=== PATIENT | female | born 1940 | race Caucasian/White ===

== ENCOUNTER 2022-11-12 11:48 | Outpatient (CLI) | payer OTHER, SELFPAY ==
[2022-11-12 12:57] LABS: Hemoglobin A1C 11.6 % (<5.7)
== END 2022-11-12 11:49 | disposition home or self-care (01) ==
PROVIDERS: PCP Family Medicine; Visit Provider Nurse Practitioner Family
DX: E11.9 Type 2 diabetes mellitus without complications (principal)
CPT/HCPCS: 36415; 83036

== ENCOUNTER 2023-01-31 12:04 | Outpatient (CLI) | payer OTHER, SELFPAY ==
[2023-01-31 12:28] LABS: Basophils Percent Auto 0.5 % (0.2-1.2); Eosinophils Absolute Auto 0.1 K/mm3 (0-0.3); Eosinophils Percent Auto 0.6 % (0-4.4); Hematocrit 44.3 % (37.0-47.0); Hemoglobin 14.2 g/dL (12.0-15.0); Immature Granulocyte Absolute 0.04 K/mm3 (0.00-0.031); Immature Granulocyte Percent A 0.5 % (0-0.5); Lymphocytes Absolute Auto 2.98 K/mm3 (0.9-3.2); Lymphocytes Percent Auto 35.9 % (18.3-44.2); Mean Corpuscular HGB Conc 32.1 g/dl (32-36); Mean Corpuscular Volume 90.6 fl (80-100); Mean Platelet Volume 10.5 fl (7.4-10.4); Monocytes Absolute Auto 0.8 K/mm3 (0.1-0.6); Monocytes Percent Auto 9.4 % (2.6-8.5); Neutrophils Absolute Auto 4.4 K/mm3 (1.3-6.7); Neutrophils Percent Auto 53.1 % (45.5-73.1); Platelet Count Result 250 k/mm3 (150-375); Red Blood Count 4.89 M/mm3 (4.2-5.4); Red Cell Distribution Width 13.1 % (11.5-14.5); White Blood Count 8.3 K/mm3 (4.5-10.0)
[2023-01-31 12:44] LABS: Alanine Aminotransferase 14 U/L (6-35); Albumin Level 4.5 g/dL (3.5-5.1); Alkaline Phosphatase 89 U/L (38-126); Anion Gap 9 mmol/L (8-16); Aspartate Amino Transferase 21 U/L (14-36); Bilirubin,Total 0.6 mg/dL (0.2-1.3); Blood Urea Nitrogen 17 mg/dL (7-17); Calcium 10.5 mg/dL (8.4-10.2); Carbon Dioxide 30 mmol/L (22-30); Chloride 104 mmol/L (98-107); Estimated Glomerular Filt Rate > 60; Glucose 172 mg/dL (65-110); Potassium 3.9 mmol/L (3.4-5.0); Sodium 143 mmol/L (137-145)
== END 2023-01-31 12:05 | disposition home or self-care (01) ==
LOC: ANHLAB 12:06
PROVIDERS: PCP Family Medicine; Visit Provider Nurse Practitioner Family
DX: E11.9 Type 2 diabetes mellitus without complications (principal); I10 Essential (primary) hypertension; R42 Dizziness and giddiness
CPT/HCPCS: 36415; 80053; 85025

== ENCOUNTER 2023-03-05 14:25 | Outpatient (CLI) | payer OTHER, SELFPAY ==
--- NOTE | ~2023-03-05 | MR_ITS ---
EXAMINATION: MR brain/brain stem wo con DATE: 03/05/2023 16:25 INDICATION: Syncope. Repeated falls. TECHNIQUE: Magnetic resonance imaging (MRI) of the brain and brainstem was performed without intraven ous contrast. COMPARISON: None. FINDINGS: There are scattered areas of nonspecific increased T2-weighted signal intensity in the cere bral white matter and brenna. There is an infarct involving the left basal ganglia and posterior limb l eft internal capsule. There is an infarct involving the right basal ganglia. There is no intracranial hemorrhage or abnormal mass lesion. The lateral ventricles are dilated out of proportion to the size of the sulci. There are likely changes of ocular lens replacement surgeries. There is mild mucosal t hickening in the paranasal sinuses. The mastoid air cells are normal. IMPRESSION: 1. Infarcts involving the right basal ganglia, left basal ganglia, and posterior limb left internal c apsule, likely subacute or chronic. 2. Mild nonspecific cerebral white matter disease and pontine disease, which likely represents chroni c small vessel ischemic disease. 3. Dilated lateral ventricles out of proportion to the size of the sulci. Correlate clinically for no rmal pressure hydrocephalus. Reviewed, dictated and finalized at location A. IMPRESSION: 1. Infarcts involving the right basal ganglia, left basal ganglia, and posterio r limb left internal capsule, likely subacute or chronic. 2. Mild nonspecific cerebral white matter disease and pontine disease, which little calvert represents chronic small vessel ischemic disease. 3. Dilated lateral ventricles out of proportion to the size of the sulci. Corre late clinically for normal pressure hydrocephalus.
== END 2023-03-05 14:26 | disposition home or self-care (01) ==
PROVIDERS: PCP Family Medicine; Visit Provider Nurse Practitioner Family
DX: R29.6 Repeated falls (principal); R40.20 Unspecified coma; R29.898 Other symptoms and signs involving the musculoskeletal system; R90.82 White matter disease, unspecified
CPT/HCPCS: 70551

== ENCOUNTER 2023-10-16 12:45 | Outpatient (CLI) | payer OTHER, SELFPAY ==
[2023-10-16 13:14] LABS: Hematocrit 45.7 % (37.0-47.0); Hemoglobin 14.6 g/dL (12.0-15.0); Mean Corpuscular HGB Conc 31.9 g/dl (32-36); Mean Corpuscular Volume 90.9 fl (80-100); Mean Platelet Volume 11.1 fl (7.4-10.4); Platelet Count Result 280 k/mm3 (150-375); Red Blood Count 5.03 M/mm3 (4.2-5.4); Red Cell Distribution Width 12.8 % (11.5-14.5); White Blood Count 10.1 K/mm3 (4.5-10.0)
== END 2023-10-16 12:46 | disposition home or self-care (01) ==
PROVIDERS: PCP Family Medicine; Visit Provider Nurse Practitioner Family
DX: R19.5 Other fecal abnormalities (principal)
CPT/HCPCS: 36415; 85027

== ENCOUNTER 2023-11-14 11:48 | Outpatient (CLI) | payer OTHER, SELFPAY ==
--- NOTE | ~2023-11-14 | XR_ITS ---
EXAMINATION: XR abdomen/kub 1V DATE: 11/14/2023 12:10 INDICATION: Unspecified abdominal pain. TECHNIQUE: A supine view of the abdomen on 2 radiographs was obtained. COMPARISON: None. FINDINGS: There are no dilated loops of bowel. There is a large volume of stool in the colon. Calcifi cations in the pelvis may be phleboliths. Surgical clips in the right upper quadrant are likely from cholecystectomy. IMPRESSION: 1. Large volume of stool in the colon. Reviewed, dictated and finalized at location E.
== END 2023-11-14 11:49 | disposition home or self-care (01) ==
PROVIDERS: PCP Family Medicine; Visit Provider Physician Assistant Medical
DX: R10.9 Unspecified abdominal pain (principal); Z87.442 Personal history of urinary calculi
CPT/HCPCS: 74018

== ENCOUNTER 2024-08-03 13:13 | Outpatient (CLI) | payer OTHER, SELFPAY ==
--- NOTE | ~2024-08-03 | XR_ITS ---
XR shoulder RT min 2V Ordering provider: Tereza Aragon, PAC History: . M25.511 - Pain in right shoulder X 4 WEEKS . Comparison: None. FINDINGS: BONES: No acute fracture or dislocation. Ossification of the supraspinatous tendon is seen near to the insertion. JOINT SPACES: The acromioclavicular joint shows osteoarthritic changes. The glenohumeral joint is nor mal. SOFT TISSUES: Normal. IMPRESSION: No acute osseous abnormality right shoulder. Osteoarthritic changes of the acromioclavicular joint. Calcific tendinitis of the supraspinatus tendon. Reviewed, dictated and finalized at location A.
--- OUTSIDE RECORDS SUMMARY | 2024-08-03 14:42 | XMS_ITS ---
Author Organization 1 OF Loren payan [facility] Address [address] [address] Care Team Providers Care Crane Engineer Name Role Phone Nadia HOLM, Jeovany Primary Care Provider Gavino Noble Unavailable REASON FOR VISIT DFC (Diabetic foot care) Encounters Encounter Location Date Provider Diagnosis 1 OF Loren Hubbard [facility] [address] [address] 07/12/2024 Gavino Hubbard Onychogryphosis L60.2 ; Diabetic [...] fasciitis of right foot (ICD-10 - M72.2) 07/12/2024 Other Plan Of Treatment Treatment Notes Assessment Notes Diabetic peripheral neuropathy Consideri ng the associated comorbidities and physical exam findings today, this patient is at substantial risk of developing serious foot complications in the absence of regular and professional palliative foot care. Next Appt Details Follow Up: 10-12 weeks or co ntact office PRN with any concerns, Reason: Provider Name:Gavnio Michel Stevie, 10/08/2024 11:10:00 AM, [address], [address], [place], [address], Procedure Notes * Category Sub-Category Detail Notes PALLIATIVE FOOT CARE: Nail debride (47250): Debr idement of at least six mycotic and/or hypertrophic nails performed:, utilizing manual and electric debridement the affected nails were reduced the nails in length and thickness with curettage of debris from nail margins performed as needed. Nail thickness reduced by:, 10% Progress Notes * Ban GARRISONDOB: 0 (84 yo F)Acc No.[id number]:07/12/2024 Progress Note Patient: Ban YEE Provider: Loren Hubbard DPM :1940 A ge:84 Y S ex:Female Date:07/12/2024 Address:[address] [place] [address], [address] [facility] Pcp:Jeovany Zuniga MD Subjective: * Chief Complaints: * 1 . DFC (Diabetic foot care). * HPI: M A assisting with visit:: Chart Prep L kevyn. HPI/Rooming: . ..... P [facility] reason for visit:: 84 y/o diabetic female RTO for diabetic foot care. Patient reports no acute issues with nails or calluses today. * Medical History: Objective: * Vitals: * Examination: G eneral Examination: Constitutional / [...] suspicious lesions, bilateral. Nails: N ail plates of:TA-K6cpuxsm relatively thickened, dystrophic, discolored, incurvated.. Hyperkeratotic lesions [...] of tarsal tunnel.. Assessment: * Assessment: 1. O nychogryphosis - L60.2 2 . D iabetic peripheral neuropathy - E11.42 (Primary) 3 . R ight foot pain - M79.671 4 . P lantar fasciitis of right foot - M72.2 Plan: * Treatment: * Procedures: P ALLIATIVE FOOT CARE:: Nail debride (30365): D ebridement of at least six mycotic and/or hypertrophic nails performed:, utilizing manual and electric debridement the affected nails were reduced the nails in length and thickness with curettage of debris from nail margins performed as needed. Nail thickness reduced by:, 10%. * Follow Up: 1 0-12 weeks or contact office PRN with any concerns * Images: * Electronic signature of Dana Hubbard DPM on 08/03/2024 at 02:42 PM CDT Sign off status: Pending * Provider: Loren Hubbard DPM Date: 0 07/12/2024 Generated for Carloz torres/Mignon/Jett on: 0 08/03/2024 02:42 PM CDT History and Physical Notes * HPI (History [...] , XXXXXX Ambulatory assistive device: wheeled wal yumiko Constitutional / Appearance: Appropriate personal hygiene , [...]
--- OUTSIDE RECORDS SUMMARY | 2024-08-03 14:43 | XMS_ITS | Encounter Summary ---
Author Organization [facility] Address [address] [place] [address] Care Team Providers Care Retail Grocer Name Role Phone Mal Jin Primary Care Provider Encounter Details Date Type Department Care Team (Late st Contact Info) Description 07/03/2023 Lab Requisition [facility] - DermPath Lab [address] [facility] [place] [address] Denae Chavez MD [address] [place] [address] [phone] Neoplasm of uncertain behavior of skin Social History Tobacco Use Types Packs/Day Years Used Date Smoking Tobacco: Never Smokeless Tobacco: Never Alcohol Use Standard Drinks/Week Comments No 0 (1 standard drink = 0.6 oz pur e alcohol) Sex and Gender Information Value Date Recorded Sex Assigned at Not on file Gender Identity Not on file Sexual Orientation Not on file documented as of this encounter Plan of Treatment Not on file documented as of this encounter Procedures Procedure Name Priority Date/Time Associated Diagnosis Comments DERMATOPATHOLOGY Routine 07/03/2023 3:33 AM INSTRUMENT LENS INSPECTOR Neoplasm of uncertain behavior of skin documented in this encounter Results * DERMATOPATHOLOGY (07/03/2023 3:33 AM INSTRUMENT LENS INSPECTOR) Case Report Dermatopathology Report Case: [id number] Authorizing Provider: Denae Chavez MD Collected: 07/03/2023 03:33 AM Ordering Location: [facility] DermPath Lab Received: 07/04/2023 04:30 PM Pathologist: Lillie Antoine MD Specimens: A) - Skin, right muslim superior B) - Skin, right muslim inferior C) - Skin, right superior chest D) - Skin, left forearm 4 12:12 PM [facility] DERMATOPATHOLOGY LABORATORY Final Diagnosis Specimen A. SKIN, right muslim superior: HYPERPLASTIC (HYPERTROPHIC) ACTINIC KERATOSIS (L57.0) Specimen B. SKIN, right muslim inferior: SQUAMOUS CELL CARCINOMA IN SITU (ALVAREZ'S DISEASE) (D04.39) Specimen C. 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 SKIN, left forearm: SQUAMOUS CELL CARCINOMA IN SITU (ALVAREZ'S DISEASE) (D04.62) 4 12:12 PM [facility] DERMATOPATHOLOGY LABORATORY Clinical History A-C: Actinic Keratosis D: Basal Cell Carcinoma 4 12:12 PM [facility] DERMATOPATHOLOGY LABORATORY Gross Description Specimen A: Received is one formalin filled container labeled with the patient's name and designated right muslim superior. The specimen consists of a shave biopsy measuring 8x7x1 mm. Jar 0. Specimen B: Received is one formalin filled container labeled with the patient's name and designated right muslim inferior. The specimen consists of a shave biopsy measuring 8x7x1 mm. Jar 0. Specimen C: Received is one formalin filled container labeled with the patient's name and designated right superior chest. The specimen consists of a shave biopsy measuring 9x7x1 mm. Jar 0. Specimen D: Received is one formalin filled container labeled with the patient's name and designated left forearm. The specimen consists of a shave biopsy measuring 16x9x1 mm. Jar 0. 4 12:12 PM [facility] DERMATOPATHOLOGY LABORATORY Microscopic Description Specimen A. SKIN, right muslim superior: There is hyperkeratosis alternating with parakeratosis. There is epidermal hyperplasia with disorderly maturation of keratinocytes with nuclear pleomorphism confined to the lower half of the epidermis. Specimen B. SKIN, right muslim inferior: The epidermis shows parakeratosis, full thickness disorderly maturation of keratinocytes, mitoses at different levels, and dyskeratotic cells. Specimen C. SKIN, right superior chest: The epidermis shows parakeratosis, full thickness disorderly maturation of keratinocytes, mitoses at different levels, and dyskeratotic cells. Specimen D. SKIN, left forearm: The epidermis shows parakeratosis, full thickness disorderly maturation of keratinocytes, mitoses at different levels, and dyskeratotic cells. 4 12:12 PM [facility] DERMATOPATHOLOGY LABORATORY Disclaimer An external and internal positive and negative controls are appropriate for the histochemical, immunohistochemical and immunofluorescence stain(s) in this case (if any), except where stated explicitly. The performance characteristics of the stain(s) cited in this report were developed and its performance characteristic determined by the Dermatopathology Laboratory at [facility], directed by Dr. Tatiana Bowers. These tests need not be, and therefore are not, approved by the [place] Food and Drug Administration. The tests are used for clinical purposes. Billing Codes Specimen Charges Stain Charges 60248 84273 69473 52796 1 1 1 1 4 12:12 PM INSTRUMENT LENS INSPECTOR DERMATOPATHOLOGY LABORATORY Embedded Images 4 12:12 PM INSTRUMENT LENS INSPECTOR DERMATOPATHOLOGY LABORATORY Pathology/Cytology TISSUE SPECIMEN FROM SKIN / Unknown 07/03/2023 3:33 AM INSTRUMENT LENS INSPECTOR 07/04/2023 4:30 PM INSTRUMENT LENS INSPECTOR Miscellaneous samples (specimen) TISSUE SPECIMEN FROM SKIN / Unknown 07/03/2023 3:33 AM INSTRUMENT LENS INSPECTOR 07/04/2023 4:30 PM INSTRUMENT LENS INSPECTOR Miscellaneous samples (specimen) TISSUE SPECIMEN FROM SKIN / Unknown 07/03/2023 3:33 AM INSTRUMENT LENS INSPECTOR 07/04/2023 4:30 PM INSTRUMENT LENS INSPECTOR Miscellaneous samples (specimen) TISSUE SPECIMEN FROM SKIN / Unknown 07/03/2023 3:33 AM INSTRUMENT LENS INSPECTOR 07/04/2023 4:30 PM INSTRUMENT LENS INSPECTOR Denae Chavez MD LAB - PATHOLOGY/CYTO LOGY ORDERABLES DERMATOPATHOLOGY LABORATORY [facility] - Department of Dermatology [address], [address] Floor [place] [phone] documented in this encounter Visit Diagnoses Diagnosis Neoplasm of uncertain behavior of skin documented in this encounter Care Teams Retail Grocer Relationship Specialty Start Date End Date Mla Jin DO PCP - General 06/23/19 documented as of this encounter
--- OUTSIDE RECORDS SUMMARY | 2024-08-03 14:43 | XMS_ITS ---
Author Organization 1 OF Loren payan DPM [facility] Address [address] [address] Care Team Providers Care Automatic Door Mechanic Name Role Phone Nadia HOLM, Jeovany Primary Care Provider Gavino Nolbe Unavailable Allergies Allergen (clinical drug ingredient) Drug/Non Drug Allergy documented on EMR Reaction Allergy Type Onset Date Status morphine Morphine Sulfate Unknown Drug Allergy Active REASON FOR VISIT DFC (Diabetic foot care) Medications Medication SIG (Take, Route, Frequency, Duration) Notes Start Date End Date Status Furosemide Active Metoprolol Succinate Active amLODIPine Besylate Active Gabapentin Active glipiZIDE Active Potassium Active Levothyroxine Sodium 88 MCG 1 tablet Ora lly Once a day Active Lisinopril 40 MG 1 tablet Orally Once a day Active Baby Aspirin Active Cephalexin Active Problems Problem Type SNOMED Code ICD Code Onset Dates Problem Status W/U Status Risk Notes Problem [id number] Plantar fasciitis of right foot (M72.2) Active confirmed Vital Signs Height 66 in 04/29/2024 Weight 138 lbs 04/29/2024 BMI 22.27 kg/m2 04/29/2024 Encounters Encounter Location Date Provider Diagnosis 1 OF Loren Hubbard DPM [facility] [address] [employer] [phone] 04/29/2024 Gavino Hubbard Onychogryphosis L60.2 ; Diabetic peripheral neuropathy E11.42 ; Right foot pain M79.671 and Plantar fasciitis of right foot M72.2 Assessments Encounter Date Diagnosis (ICD Code) Assessment Notes Treatment Notes Treatment Clinical Notes Section Notes 04/29/2024 Onychogryphosis (ICD-10 - L60.2) 04/29/2024 Diabetic peripheral neuropathy (ICD-10 - E11.42) Considering the associated comorbidities and physical exam findings today, this patient is at substantial risk of developing serious foot complications in the absence of regular and professional palliative foot care. 04/29/2024 Right foot pain (ICD-10 - M79.671) 04/29/2024 Plantar fasciitis of right foot (ICD-10 - M72.2) Patient visit today included a review of medical history, review of systems, physical exam and discussion of exam findings, test results, and discussed the nature and etiology of plantar fasciitis as well as treatment options. I discussed the importance of wearing good supportive shoes and avoiding ambulation in slippers, flip flops or walking barefoot and I encouraged the patient to wear a good quality athletic sneaker whenever possible. Recommended local [employer] shoe store or a reputable running specialty store in the area for new shoes YONATAN. F/u prn 04/29/2024 Other Plan Of Treatment Treatment Notes Assessment Notes Diabetic peripheral neuropathy Consideri ng the associated comorbidities and physical exam findings today, this patient is at substantial risk of developing serious foot complications in the absence of regular and professional palliative foot care. Plantar fasciitis of right foot Patient visit today included a review of medical history, review of systems, physical exam and discussion of exam findings, test results, and discussed the nature and etiology of plantar fasciitis as well as treatment options. I discussed the importance of wearing good supportive shoes and avoiding ambulation in slippers, flip flops or walking barefoot and I encouraged the patient to wear a good quality athletic sneaker whenever possible. Recommended local [employer] shoe store or a reputable running specialty store in the area for new shoes YONATAN. F/u prn Next Appt Details Follow Up: 10-12 weeks or co ntact office PRN with any concerns, Reason: Provider Name:Gavino Hubbard, 10/08/2024 11:10:00 AM, [address], [place], [address], Procedure Notes * Category Sub-Category Detail Notes PALLIATIVE FOOT CARE: Nail debride (15772): Debr idement of at least six mycotic and/or hypertrophic nails performed:, utilizing manual and electric debridement the affected nails were reduced the nails in length and thickness with curettage of debris from nail margins performed as needed. Nail thickness reduced by:, 10% Progress Notes * Ban GARRISONDOB: 0 (84 yo F)Acc No.[id number]:04/29/2024 Progress Note Patient: Ban YEE Provider: Loren Hubbard DPM :1940 A ge:83 Y S ex:Female Date:04/29/2024 Address:[facility] [address] [facility] [address] [place], [place] [address] Pcp:Jeovany Zuniga MD Subjective: * Chief Complaints: * D FC (Diabetic foot care) * HPI: Sara Mcgill assisting with visit:: HPI/Rooming: [facility] reason for visit:: 83 y/o diabetic female RTO for diabetic foot care. Patient reports no acute issues with nails or calluses today. The patient reports experiencing an intermittent stinging sensation in her right heel, which she notices while walking. She admits she walks around with only socks on her feet at times. States her diabetic shoes are worn out Pt reports her a month ago. * Medical History: * Surgical History: T hyroid Cancer Hysterectomy Knee Replacement, Left Shoulder, Left * Hospitalization/Major Diagno stic Procedure: * Family History: N o Family History documented.. * Medications: T akingBaby Aspirin Cephalexin Levothyroxine Sodium 88 MCG Tablet 1 tablet Orally Once a day Lisinopril 40 MG Tablet 1 tablet Orally Once a day Potassium Gabapentin glipiZIDE Metoprolol Succinate amLODIPine Besylate Furosemide Medication List reviewed and reconciled with the patientTaking Baby Aspirin Taking Cephalexin Taking Levothyroxine Sodium 88 MCG Tablet 1 tablet Orally Once a day Taking Lisinopril 40 MG Tablet 1 tablet Orally Once a day Taking Potassium Taking Gabapentin Taking glipiZIDE Taking Metoprolol Succinate Taking amLODIPine Besylate Taking Furosemide Medication List reviewed and reconciled with the patient * Allergies: M orphine Sulfateno[Allergies Verified] Objective: * Vitals: W t:138lbs, Wt-k.6 kg, Ht:66in, BMI:22.27Index. * Examination: G eneral Examination: Constitutional / Appearance: A ppropriate personal hygiene , Relatively frail , Relatively deconditioned. Ambulatory assistive device: wheeled walker. Shoes today: M marietommy Quevedo. L ower Extremity VASCULAR: : Pulses: D P pulse nonpalpable b/l, PT pulse nonpalpable b/l. Temperature gradient: decreased from proximal to distal bilateral. Pedal hair: s parse / absent bilateral. ? L ower Extremity DERM: : Skin: r elatively dry, thin, atrophic, no suspicious lesions, bilateral. Nails: N ail plates of:TA-I2sataml relatively thickened, dystrophic, discolored, incurvated.. Hyperkeratotic lesions [...] 1. O nychogryphosis - L60.2 2 . R ight foot pain - M79.671 3 . D iabetic peripheral neuropathy - E11.42 (Primary) 4 . P lantar fasciitis of right foot - M72.2 Plan: * Treatment: 2. P lantar fasciitis of right foot Notes: Patient visit today included a review of medical history, review of systems, physical exam and discussion of exam findings, test results, and discussed the nature and etiology of plantar fasciitis as well as treatment options. I discussed the importance of wearing good supportive shoes and avoiding ambulation in slippers, flip flops or walking barefoot and I encouraged the patient to wear a good quality athletic sneaker whenever possible. Recommended local [employer] shoe store or a reputable running specialty store in the area for new shoes YONATAN. F/u prn * Procedures: P ALLIATIVE FOOT CARE:: Nail debride (26218): D ebridement of at least six mycotic and/or hypertrophic nails performed:, utilizing manual and electric debridement the affected nails were reduced the nails in length and thickness with curettage of debris from nail margins performed as needed. Nail thickness reduced by:, 10%. * Procedure Codes: 1 1721 DEBRIDE NAIL, 6 OR MORE, Modifiers: Q8 * Preventive Medicine: Counseling: C are goal follow-up plan: BMI counseling provided to patient:?Lifestyle education Screenings: F ALL RISK SCREENING Fall Risk Assessment: N o falls in the past year * Follow Up: 1 0-12 weeks or contact office PRN with any concerns * Images: * SIONIST Sign off status: Completed true * Provider: Loren Hubbard DPM Date: 06/30/2023 Generated for Carloz torres/Mignon/Jett on: 0 08/03/2024 02:43 PM CDT History and Physical Notes * HPI (History of Present Illness) Category Sub-Category Detail Notes Category Not es Primary reason for visit: 83 y/o diabetic female RTO for diabetic foot care. Patient reports no acute issues with nails or calluses today. The patient reports experiencing an intermittent stinging sensation in her right heel, which she notices while walking. She admits she walks around with only socks on her feet at times. States her diabetic shoes are worn out Pt reports her a month ago. MONSERRAT assisting with visit: HPI/Rooming: Odalys Examination Category Sub-Category Detail Notes Category Not es General Examination Mental status: Shoes today: Amita Quevedo Ambulatory assistive device: wheeled wal ker Constitutional [...]
--- OUTSIDE RECORDS SUMMARY | 2024-08-03 14:43 | XMS_ITS | Encounter Summary ---
Author Organization [facility] Address [address] [place] [address] Care Team Providers Care Urgent Care Nurse Practitioner Name Role Phone Mal Jin DO Primary Care Provider Encounter Details Date Type Department Care Team (Late st Contact Info) Description 04/08/2023 Lab Requisition [facility] - DermPath Lab [address] [facility] [place] [address] Sebastian Garcia MD [facility] DERMATOLOGY [address] [place] [phone] Neoplasm of uncertain behavior of skin Social [...] Priority Date/Time Associated Diagnosis Comments DERMATOPATHOLOGY Routine 04/08/2023 3:33 AM SENIOR MEDICAL WRITER Neoplasm of uncertain behavior of skin documented in this encounter Results * DERMATOPATHOLOGY (04/08/2023 3:33 AM SENIOR MEDICAL WRITER) Case Report Dermatopathology Report Case: [id number] Authorizing Provider: Sebastian Garcia MD Collected: 04/08/2023 03:33 AM Ordering Location: [facility] DermPath Lab Received: 04/09/2023 04:00 PM Pathologist: Marlene Antoine MD Specimen: Skin, mid back 3 3:46 PM SENIOR MEDICAL WRITER DERMATOPATHOLOGY LABORATORY Final Diagnosis Specimen A. SKIN, mid back: DERMAL SCAR (L90.5) 3 3:46 PM SENIOR MEDICAL WRITER DERMATOPATHOLOGY LABORATORY Clinical History Basal Cell Carcinoma 3 3:46 PM SENIOR MEDICAL WRITER DERMATOPATHOLOGY LABORATORY Gross Description Specimen A: Received is one formalin filled container labeled with the patient's name and designated mid back. The specimen consists of a shave biopsy measuring 5x5x1 mm. Jar 0. 3 3:46 PM SENIOR MEDICAL WRITER DERMATOPATHOLOGY LABORATORY Microscopic Description Specimen A. SKIN, mid back: There are fibroblasts and collagen bundles oriented parallel to the skin surface with elongated blood vessels, some of which are oriented perpendicular to the skin surface. 3 3:46 PM SENIOR MEDICAL WRITER DERMATOPATHOLOGY LABORATORY Disclaimer An external and internal positive and negative controls are appropriate for the histochemical, immunohistochemical and immunofluorescence stain(s) in this case (if any), except where stated explicitly. The performance characteristics of the stain(s) cited in this report were developed and its performance characteristic determined by the Dermatopathology Laboratory at [facility], directed by Dr. Tatiana Bowers. These tests need not be, and therefore are not, approved by the [place] Food and Drug Administration. The tests are used for clinical purposes. Billing Codes Specimen Charges Stain Charges 28849 1 3 3:46 PM SENIOR MEDICAL WRITER DERMATOPATHOLOGY LABORATORY Embedded Images 3 3:46 PM SENIOR MEDICAL WRITER DERMATOPATHOLOGY LABORATORY Pathology/Cytolo gy TISSUE SPECIMEN FROM SKIN / Unknown 04/08/2023 3:33 AM SENIOR MEDICAL WRITER 04/09/2023 4:00 PM SENIOR MEDICAL WRITER Sebastian Garcia MD LAB - PATHOLOGY/CYTO LOGY ORDERABLES DERMATOPATHOLOGY LABORATORY [facility] - Department of Dermatology [facility] [address] [place] [address], [address] [phone] documented in this encounter Visit Diagnoses Diagnosis Neoplasm of uncertain behavior of skin documented in this encounter Care Teams Urgent Care Nurse Practitioner Relationship Specialty Start Date End Date Mal Jin DO PCP - General 06/23/19 documented as of this encounter
--- OUTSIDE RECORDS SUMMARY | 2024-08-03 14:43 | XMS_ITS | Patient Health Record ---
Author Organization 1 OF Loren payan [facility] Address [address] [facility] [address] [place] [address] Care Team Providers Care Heating And Air Conditioning Mechanic Name Role Phone Nadia HOLM, Jeovany Primary Care Provider Gavino Noble Unavailable Allergies Allergen (clinical drug ingredient) Drug/Non Drug Allergy documented on EMR Reaction Allergy Type Onset Date Status morphine Morphine Sulfate Unknown Drug Allergy Active Reason For Referral Reason eval/diagnose/treat Referring Provider First Name Jeovany Referring Provider Last Name Nadia Referred Organization 1 OF Loren gorman [facility] Referred Provider Oliverio Hubbard Referred Address [address] [address],[place], [place],[address], Referred Provider Specialty Podiatry Referral Priority Routine Medications Medication SIG (Take, Route, Frequency, Duration) Notes Start Date End Date Status Lisinopril 40 MG 1 tablet Orally Once a day Active Levothyroxine Sodium 88 MCG 1 tablet Ora lly Once a day Active Cephalexin Active Baby Aspirin Active Furosemide Active amLODIPine Besylate Active Metoprolol Succinate Active glipiZIDE Active Gabapentin Active Potassium Active Problems Problem Type SNOMED Code ICD Code Onset Dates Problem Status W/U Status Risk Notes Problem 57909275 Generalized atherosclerosis (I70.91) Active confirmed Problem Type II diabetes mellitus without complication (773195302) Diabetes mellitus type 2, controlled, without complications (E11.9) Active confirmed Problem Type 2 diabetes mellitus with peripheral angiopathy (479667409) Type 2 diabetes mellitus with diabetic peripheral angiopathy without gangrene (E11.51) Active confirmed Problem 57559056 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.49) Active confirmed Problem 386468370 Hammer toe of right foot (M20.41) Active confirmed Problem Diabetic peripheral neuropathy (856791337) Diabetic peripheral neuropathy (E11.42) Active confirmed Problem 65472540401287159 Plantar fascii tis of right foot (M72.2) Active confirmed Problem 19286514 Intermittent claudication (I73.9) Active confirmed Vital Signs Height 66 in 07/26/2024 Weight 120 lbs 07/26/2024 BMI 19.37 kg/m2 07/26/2024 Encounters Encounter Location Date Provider Diagnosis 1 OF Loren Hubbard [place] [address] [place] [address] 09/23/2023 Gavino Hubbard Onychogryphosis L60.2 and Diabetic peripheral neuropathy E11.42 1 OF Loren Mcmillan [place] [address] [place] [address] 12/18/2023 Gavino Hubbard Onychogryphosis L60.2 and Diabetic peripheral neuropathy E11.42 1 OF Loren Mcmillan [place] [address] [place] [address] 04/29/2024 Gavino Hubbard Onychogryphosis L60.2 ; Diabetic peripheral neuropathy E11.42 ; Right foot pain M79.671 and Plantar fasciitis of right foot M72.2 1 OF Loren Mcmillan [place] [address] [place] [address] 07/26/2024 Gavino Hubbard Onychogryphosis L60.2 and Diabetic peripheral neuropathy E11.42 1 OF Loren Mcmillan [place] [address] [place] [address] 12/01/2023 Gavino Hubbard [address] [place] [address] [place] [address] 04/11/2024 Gavino Hubbard Assessments Encounter Date Diagnosis (ICD Code) Assessment Notes Treatment Notes Treatment Clinical Notes Section Notes 09/23/2023 Onychogryphosis (ICD-10 - L60.2) 12/18/2023 Onychogryphosis (ICD-10 - L60.2) 04/29/2024 Onychogryphosis (ICD-10 - L60.2) 07/26/2024 Onychogryphosis (ICD-10 - L60.2) 07/26/2024 Diabetic peripheral neuropathy (ICD-10 - E11.42) Considering the associated comorbidities and physical exam findings today, this patient is at substantial risk of developing serious foot complications in the absence of regular and professional palliative foot care. 04/29/2024 Right foot pain (ICD-10 - M79.671) 04/29/2024 Diabetic peripheral neuropathy (ICD-10 - E11.42) Considering the associated comorbidities and physical exam findings today, this patient is at substantial risk of developing serious foot complications in the absence of regular and professional palliative foot care. 12/18/2023 Diabetic peripheral neuropathy (ICD-10 - E11.42) Considering the associated comorbidities and physical exam findings today, this patient is at substantial risk of developing serious foot complications in the absence of regular and professional palliative foot care. 09/23/2023 Diabetic peripheral neuropathy (ICD-10 - E11.42) Considering the associated comorbidities and physical exam findings today, this patient is at substantial risk of developing serious foot complications in the absence of regular and professional palliative foot care. 04/29/2024 Plantar fasciitis of right foot (ICD-10 [...] area for new shoes YONATAN. F/u prn 09/16/2023 Other 12/02/2023 Other 02/26/2024 Other 07/12/2024 Other 09/23/2023 Other 12/18/2023 Other 04/29/2024 Other 07/26/2024 Other Plan Of Treatment Next Appt Details Provider Name:Abrahankylieperla Hubbard, 10/08/2024 11:10:00 AM, [address], [place], [address], Insurance Providers Payer Name Payer Address Payer Phone Subscriber Number Group Number Insured Name Patient Relationship to Insured Coverage Start Date Coverage End Date [facility] [address] [address] [place] [address] [phone] [id number] Ban [place] Self - patient is the insured Medical (General) History Medical History History ICD Code Diabetes Cancer, Thyroid Hypertension High Cholesterol Arthritis Surgical History Surgery Date(Month/Year) Thyroid Cancer Hysterectomy Knee Replacement, Left Shoulder, Left
--- OUTSIDE RECORDS SUMMARY | 2024-08-03 14:43 | XMS_ITS ---
Author Organization 1 OF Loren payan [facility] Address [address] [address] Care Team Providers Care Tool Inspector Name Role Phone Nadia HOLM, Jeovany Primary Care Provider Gavino Noble Unavailable Allergies Allergen (clinical drug ingredient) Drug/Non Drug Allergy documented on EMR Reaction Allergy Type Onset Date Status morphine Morphine Sulfate Unknown Drug Allergy Active REASON FOR VISIT DFC (Diabetic foot care) Medications Medication SIG (Take, Route, Frequency, Duration) Notes Start Date End Date Status Furosemide Active amLODIPine Besylate Active Metoprolol Succinate Active glipiZIDE Active Gabapentin Active Lisinopril 40 MG 1 tablet Orally Once a day Active Levothyroxine Sodium 88 MCG 1 tablet Ora lly Once a day Active Cephalexin Active Baby Aspirin Active Potassium Active Problems Problem Type SNOMED Code ICD Code Onset Dates Problem Status W/U Status Risk Notes Problem 511405642 Hammer toe of right foot (M20.41) Active confirmed Vital Signs Height 66 in 07/26/2024 Weight 120 lbs 07/26/2024 BMI 19.37 kg/m2 07/26/2024 Encounters Encounter Location Date Provider Diagnosis 1 OF Loren Hubbard [facility] [address] [address] 07/26/2024 Gavino Hubbard Onychogryphosis L60.2 and Diabetic peripheral neuropathy E11.42 Assessments Encounter Date Diagnosis (ICD Code) Assessment Notes Treatment Notes Treatment Clinical Notes Section Notes 07/26/2024 Onychogryphosis (ICD-10 - L60.2) 07/26/2024 Diabetic peripheral neuropathy (ICD-10 - E11.42) Considering the associated comorbidities and physical exam findings today, this patient is at substantial risk of developing serious foot complications in the absence of regular and professional palliative foot care. 07/26/2024 Other Plan Of Treatment Treatment Notes Assessment Notes Diabetic peripheral neuropathy Consideri ng the associated comorbidities and physical exam findings today, this patient is at substantial risk of developing serious foot complications in the absence of regular and professional palliative foot care. Next Appt Details Follow Up: 10-12 weeks or co ntact office PRN with any concerns, Reason: Provider Name:Abrahankylieperla Hubbard, 10/08/2024 11:10:00 AM, [address], [facility] [address], [place], [address], Procedure Notes * Category Sub-Category Detail Notes PALLIATIVE FOOT CARE: Nail debride (39529): Debr idement of at least six mycotic and/or hypertrophic nails performed:, utilizing manual and electric debridement the affected nails were reduced the nails in length and thickness with curettage of debris from nail margins performed as needed. Nail thickness reduced by:, 10% Progress Notes * Law GARRISONikeDOB: 0 (84 yo F)Acc No.[id number]:07/26/2024 Progress Note Patient: Ban YEE Provider: Loren Hubbard DPM :1940 A ge:84 Y S ex:Female Date:07/26/2024 Address:[address], [address] [facility] Pcp:Jeovany Zuniga MD Subjective: * Chief Complaints: * D FC (Diabetic foot care) * HPI: M A assisting with visit:: Chart Prep L kevyn. HPI/Rooming: , Myeshia. P rimary reason for visit:: 84 y/o diabetic female RTO for diabetic foot care. Patient reports no acute issues with nails or calluses today. * ROS: * MULTI-SYSTEM REVIEW:: burning, tingling,numbness in feet a dmits. ? * Medical History: * Surgical History: T [...] orphine Sulfateno[Allergies Verified] Objective: * Vitals: W t:120lbs, Wt-k.43 kg, Ht: 66 in, BMI:19.37Index. * Examination: G eneral Examination: Constitutional / Appearance: A ppropriate personal hygiene , Relatively frail , Relatively deconditioned. Ambulatory assistive device: wheeled walker. Shoes today: d ress shoes. L ower Extremity VASCULAR: : Pulses: D P pulse nonpalpable b/l, PT pulse nonpalpable b/l. Temperature gradient: decreased from proximal to distal bilateral. Pedal hair: s parse / absent bilateral. ? L ower Extremity DERM: : Skin: r elatively dry, thin, atrophic, no suspicious lesions, bilateral. Nails: N ail plates of:[id number] relatively thickened, dystrophic, discolored, incurvated.. Hyperkeratotic lesions LEFT foot: no significant hpk lesions noted. Hyperkeratotic lesions RIGHT foot: n o significant hpk lesions noted. L ower Extremity NEURO: : General sensation appears diminished, to sharp stimuli. , bilateral. Muscle tone d iminished bilateral. Monofilament test (10 gram pressure) E xam of 07/26/2024, - - revealed absent sensation to at least two distinct locations of, entire foot. Vibration perception: E xam of 07/26/2024, - - noted absent per evaluation with 128Hz tuning fork applied to distal hallux compared to ipsilateral medial malleolus, @ bilateral feet. L ower Extremity MSK: : Left lower extremity inspection and palpation: N o palpable masses or nodules noted.. Right lower extremity inspection and palpation: N o palpable masses or nodules noted. . Foot deformities: B ilateral:, mild h ammertoes. Assessment: * Assessment: 1. O nychogryphosis - L60.2 2 . D iabetic peripheral neuropathy - E11.42 (Primary) Plan: * Treatment: * Procedures: P ALLIATIVE FOOT CARE:: Nail debride (53950): D ebridement of at least six mycotic [...] PRN with any concerns * Images: * DERER HAND Sign off status: Completed true * Provider: Loren Hubbard DPM Date: 0 07/26/2024 Generated for Carloz torres/Mignon/Jett on: 0 08/03/2024 02:42 PM CDT History and Physical Notes * HPI (History of Present Illness) Category Sub-Category Detail Notes Category Not es Primary reason for visit: 84 y/o diabetic fema le RTO for diabetic foot care. Patient reports no acute issues with nails or calluses today. MA assisting with visit: HPI/Rooming: , Myeshia Chart Prep Odalys Examination Category Sub-Category Detail Notes Category Not es General Examination Mental status: Shoes today: dress shoes Ambulatory assistive device: wheeled wal ker Constitutional / Appearance: Appropriate personal hygiene , Relatively frail , Relatively deconditioned Lower Extremity VASCULAR: Pulses: DP pul se nonpalpable b/l, PT pulse nonpalpable b/l Temperature gradient: decreased from pro ximal to distal bilateral Pedal hair: sparse / absent bila teral Lower Extremity NEURO: Monofilament test (10 gram pressure) Exam of 07/26/2024, - - revealed absent sensation to at least two distinct locations of, entire foot Vibration perception: Exam of 07/26/2024 , - - noted absent per evaluation with 128Hz tuning fork applied to distal hallux compared to ipsilateral medial malleolus, @ bilateral feet General sensation appears diminished, to sharp stimuli. , bilateral Muscle tone diminished bilateral Lower Extremity MSK: Foot deformities: Bilateral:, mil d hammertoes Left lower extremity inspection and palp ation: [...]
--- OUTSIDE RECORDS SUMMARY | 2024-08-03 14:43 | XMS_ITS | Clinical Summary ---
Author Organization [facility] [employer] Address [address] [place] [address] Care Team Providers Care Insurance Billing Specialist Name Role Phone Mal Jin DO Primary Care Provider Source Comments [facility] [employer],non-owned Affiliates and Associated Physician Practices is amultiple site organization consisting of ambulatory clinics and hospital sitesin [place], [place], [place] and [place]. This disclosure is being madepursuant to the Care Everywhere program and may not contain all information available regarding this patient. Last updated 18.[facility] [employer] Allergies Active Allergy Reactions Criticality Noted Date Comments Codeine Itching 09/13/2018 Morphine Itching 09/13/2018 Tramadol Other Medium 06/23/2019 Can't Function Medications * Be aware that medications may not be up to date on this document. Alwaysverify current medications with the patient. Medication Sig Dispensed Refills Start Date End Date Status amLODIPine (NORVASC) 2.5 MG tablet Take 2.5 mg by mouth once daily 06/30/2018 Active lisinopril (PRINIVIL; ZESTRIL) 40 MG tablet TAKE ONE TABLET BY MOUTH ONCE DAILY 02/17/2019 Active atorvastatin (LIPITOR) 20 MG tablet 06/30/2018 Active furosemide (LASIX) 20 MG tablet 04/10/2019 Active metoprolol succinate XL 24hr (TOPROL XL) 50 MG tablet TAKE ONE TABLET BY MOUTH ONCE DAILY 04/23/2019 Active levothyroxine (SYNTHROID) 75 MCG tablet 04/26/2019 Active metFORMIN ER 24hr (GLUCOPHAGE XR) 500 MG tablet 01/26/2019 Active POTASSIUM PHOSPHATE PO Ac tive Social History Tobacco Use Types Packs/Day Years Used Date Smoking Tobacco: Never Smokeless Tobacco: Never Alcohol Use Standard Drinks/Week Comments No 0 (1 standard drink = 0.6 oz pur e alcohol) Sex and Gender Information Value Date Recorded Sex Assigned at Not on file Gender Identity Not on file Sexual Orientation Not on file Last Filed Vital Signs Vital Sign Reading Time Taken Comments Blood Pressure 162/68 06/23/2019 8:02 AM LINUX NETWORK ADMINISTRATOR Pulse 65 06/23/2019 8:02 AM LINUX NETWORK ADMINISTRATOR Temperature 36.8 C (98.3 F) 09/13/2018 12:46 AM CDT Respiratory Rate 15 09/13/2018 2:24 AM CDT Oxygen Saturation 96% 09/13/2018 2:24 AM CDT Inhaled Oxygen Concentration - - Weight 59 kg (130 lb) 06/23/2019 8:02 AM LINUX NETWORK ADMINISTRATOR Height 167.6 cm (5' 6 ) 06/23/2019 8:02 AM LINUX NETWORK ADMINISTRATOR Body Mass Index 20.98 06/23/2019 8:02 AM LINUX NETWORK ADMINISTRATOR Plan of Treatment Health Maintenance Due Date Last Done Comments BONE DENSITY TESTING 1940 DTAP/TDAP/TD VACCINES (1 - Tdap) 1959 PNEUMOCOCCAL VACCINE 50+ (1 of 1 - PCV) 1990 ZOSTER VACCINE (1 of 2) 1990 Respiratory Syncytial Virus (RSV) Vaccine Pt: or over 60 yrs (1 - 1-dose 75+ series) 2015 COVID-19 VACCINE ( - 2023- season) 2024 INFLUENZA VACCINE (#1) 2024 9, 03/07/2018, 02/15/2017, Additional history exists DEPRESSION SCREENING 05/26/2024 MEDICARE AWV CALENDAR YEAR 2024 HEPATITIS B VACCINE Aged Out No longe r eligible based on patient's age to complete this topic HIB VACCINE Aged Out No longer eligi ble based on patient's age to complete this topic HPV VACCINE Aged Out No longer eligi ble based on patient's age to complete this topic MENINGOCOCCAL (Group B) VACCINE Aged Out No longer eligible based on patient's age to complete this topic MENINGOCOCCAL VACCINE Aged Out No chio errol eligible based on patient's age to complete this topic Insurance Payer Benefit Plan / Group Subscriber ID Effective Dates Phone Address Type E[employer]ENCE MEDICARE E[employer]ENCE MEDICARE ADV HMO/POS [id number] 05/26/2018-Prese nt [phone] [employer]ENCE CLAIMS [address] [place] [address] Medicare- Managed Care [employer] MEDICARE [employer] MEDICARE ADV HMO/POS [id number] 05/26/2018-Prese nt [phone] E[employer]ENCE CLAIMS [address] [place] [address] Medicare- Managed Care E[employer]ENCE MEDICARE E[employer]ENCE MEDICARE ADV HMO/POS [id number] 05/26/2018-Prese nt [phone] E[employer]ENCE CLAIMS [address] [place] [address] Medicare- Managed Care E[employer]ENCE MEDICARE E[employer]ENCE MEDICARE ADV HMO/POS [id number] 05/26/2018-Prese nt [phone] E[employer]ENCE CLAIMS [address] [place] [address] Medicare- Managed Care E[employer]ENCE MEDICARE E[employer]ENCE MEDICARE ADV HMO/POS [id number] 05/26/2018-Prese nt [phone] E[employer]ENCE CLAIMS [address] [place] [address] Medicare- Managed Care E[employer]ENCE MEDICARE E[employer]ENCE MEDICARE ADV HMO/POS [id number] 05/26/2018-Prese nt [phone] E[employer]ENCE CLAIMS [address] [place] [address] Medicare- Managed Care E[employer]ENCE MEDICARE E[employer]ENCE MEDICARE ADV HMO/POS [id number] 05/26/2018-Prese nt [phone] E[employer]ENCE CLAIMS [address] [place] [address] Medicare- Managed Care E[employer]ENCE MEDICARE E[employer]ENCE MEDICARE ADV HMO/POS [id number] 05/26/2018-Prese nt [phone] E[employer]ENCE CLAIMS [address] [place] [address] Medicare- Managed Care E[employer]ENCE MEDICARE E[employer]ENCE MEDICARE ADV HMO/POS [id number] 05/26/2018-Prese nt [phone] E[employer]ENCE CLAIMS [address] [place] [address] Medicare- Managed Care E[employer]ENCE MEDICARE E[employer]ENCE MEDICARE ADV HMO/POS [id number] 05/26/2018-Prese nt [phone] ESSENCE CLAIMS [address] [place] [address] Medicare- Managed Care E[employer]ENCE MEDICARE ESSENCE MEDICARE ADV HMO/POS [id number] 03/26/2016-Pres ent [address] [place] [address] Medicare- Managed Care Care Teams Insurance Billing Specialist Relationship Specialty Start Date End Date Mal Jin DO PCP - General 06/23/19
--- OUTSIDE RECORDS SUMMARY | 2024-08-03 14:43 | XMS_ITS | Encounter Summary ---
Author Organization [facility] Address [address] [place] [address] Care Team Providers Care Director Of Restaurant Name Role Phone Mal Jin Primary Care Provider Encounter Details Date Type Department Care Team (Late st Contact Info) Description 09/12/2023 Lab Requisition [facility] - DermPath Lab [address] [facility] [place] [address] Denae Chavez MD [address] [place] [phone] Neoplasm of uncertain behavior of skin Social [...] Priority Date/Time Associated Diagnosis Comments DERMATOPATHOLOGY Routine 09/12/2023 3:33 AM CDT Neoplasm of uncertain behavior of skin documented in this encounter Results * DERMATOPATHOLOGY (09/12/2023 3:33 AM CDT) Case Report Dermatopathology Report Case: [id number] Authorizing Provider: Denae Chavez MD Collected: 09/12/2023 03:33 AM Ordering Location: [facility] - Received: 09/15/2023 12:50 PM DermPath Lab Pathologist: Lillie Antoine MD Specimen: Skin, left ventral forearm 5:34 PM CDT DERMATOPATHOLOGY LABORATORY Final Diagnosis Specimen A. 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 Squamous Cell Carcinoma 5:34 PM CDT DERMATOPATHOLOGY LABORATORY Gross Description Specimen A: Received is one formalin filled container labeled with the patient's name and designated left ventral forearm. The specimen consists of a shave biopsy measuring 10x8x2 mm. Jar 0. 5:34 PM CDT DERMATOPATHOLOGY LABORATORY Microscopic Description Specimen A. SKIN, left ventral forearm: The epidermis shows parakeratosis, full thickness disorderly maturation of keratinocytes, mitoses at different levels, and dyskeratotic cells. 5:34 PM CDT DERMATOPATHOLOGY LABORATORY Disclaimer An external and internal positive and negative controls are appropriate for the histochemical, immunohistochemical and immunofluorescence stain(s) in this case (if any), except where stated explicitly. The performance characteristics of the stain(s) cited in this report were developed and its performance characteristic determined by the Dermatopathology Laboratory at [facility], directed by Dr. Tatiana Bowers. These tests need not be, and therefore are not, approved by the [place] Food and Drug Administration. The tests are used for clinical purposes. Billing Codes Specimen Charges Stain Charges 77130 1 5:34 PM CDT DERMATOPATHOLOGY LABORATORY Embedded Images 5:34 PM CDT DERMATOPATHOLOGY LABORATORY Pathology/Cytolo gy TISSUE SPECIMEN FROM SKIN / Unknown 09/12/2023 3:33 AM CDT 09/15/2023 12:50 PM CDT Denae Chavez MD LAB - PATHOLOGY/CYTO LOGY ORDERABLES DERMATOPATHOLOGY LABORATORY [facility] - Department of Dermatology [facility] Special[facility] [address] [place] [address], [address] [phone] documented in this encounter Visit Diagnoses Diagnosis Neoplasm of uncertain behavior of skin documented in this encounter Care Teams Director Of Restaurant Relationship Specialty Start Date End Date Mal Jin DO PCP - General 06/23/19 documented as of this encounter
--- OUTSIDE RECORDS SUMMARY | 2024-08-03 14:43 | XMS_ITS | Encounter Summary ---
Author Organization [facility] Address [facility]ly [facility] [place] [address] Care Team Providers Care Bill Poster Installer Name Role Phone Mal Jin Jose D DO Primary Care Provider [phone] Tim Moulton MD Primary Care Provider [phone] Bety Swift RN Unavailable Unavailable Mikala Pillai RN Unavailable Bharat Gaytan DO Primary Care Provider [phone] Della Marley RN Unavailable Ricardo Wiseman DO Primary Care Provider [phone] None, Provider Primary Care Provider UnavailJeovany Cain MD Primary Care Provider [phone] Encounter Details Date Type Department Care Team (Late st Contact Info) Description 10/31/2018 Abstract [facility] CONVERSION [address] [place], [place] [id number] , Generic Conversion, Social History Tobacco Use Types Packs/Day Years Used Date Smoking Tobacco: Never Smokeless Tobacco: Never Alcohol Use Standard Drinks/Week Comments No 0 (1 standard drink = 0.6 oz pur e alcohol) PHQ-2 Answer Date Recorded PHQ-2 Score 2 08/23/2018 Comments No Sex and Gender Information Value Date Recorded Sex Assigned at Not on file Legal Sex Female 10:41 PM CDT Gender Identity Not on file Sexual Orientation Not on file documented as of this encounter Plan of Treatment Not on file documented as of this encounter Visit Diagnoses Not on filedocumented in this encounter Additional Health Concerns Infection Onset Date Last Indicated Resolved Time COVID-19 Rule Out 07/18/2021 07/18/2021 07/18/2021 12:13 PM [employer] documented as of this encounter Care Teams Bill Poster Installer Relationship Specialty Start Date End Date Mal Jin DO PCP - General FAMILY PRACTICE 09/20/17 09/21/19 Tim Moulton MD PCP - General FAMILY PRACTICE 09/22/19 11/22/21 Bharat Gaytan DO [address] [place] [address] [id number] PCP - General FAMILY PRACTICE 11/23/21 05/14/22 Ricardo Wiseman DO [address] [place] [address] PCP - General FAMILY PRACTICE 05/21/22 03/04/23 None, MD Ronen PCP - General UNKNOWN PHYSICIAN SPECIALTY 06/11/23 09/09/23 Jeovany Zuniga MD [address] [place], [place] [id number] PCP - General FAMILY PRACTICE 09/10/23 Bety Swift RN Care Manager (Ambulatory) REGISTERED NURSE 03/15/21 07/12/21 Mikala Pillai, JAMEL [address] [place] [address] [phone] Sounding Device Operator (Ambulatory) REGISTERED NURSE 07/27/21 08/19/21 Della Marley, RN [address] [place] [address] [phone] Sounding Device Operator (Ambulatory) REGISTERED NURSE 12/31/21 02/26/22 documented as of this encounter
--- OUTSIDE RECORDS SUMMARY | 2024-08-03 14:43 | XMS_ITS | Encounter Summary ---
Author Organization [facility] Address [address] [place] [address] Care Team Providers Care Food Safety Scientist Name Role Phone Mal Jin Primary Care Provider Encounter Details Date Type Department Care Team (Late st Contact Info) Description 10/09/2022 Lab Requisition [facility] - DermPath Lab [address] [facility] [place] [address] Denae Chavez MD [address] [place] [phone] Basal cell carcinoma of skin of right upper limb, including shoulder; Basal cell carcinoma of skin of nose Social History Tobacco Use Types Packs/Day Years [...] Priority Date/Time Associated Diagnosis Comments DERMATOPATHOLOGY Routine 10/09/2022 12:0 0 AM CDT Basal cell carcinoma of skin of right upper limb, including shoulder [ICD-10-CM] Basal cell carcinoma of skin of nose [ICD-10-CM] documented in this encounter Results * DERMATOPATHOLOGY (10/09/2022 12:00 AM CDT) Case Report Dermatopathology Report Case: [id number] Authorizing Provider: Denae Chavez MD Collected: 10/09/2022 12:00 AM Ordering Location: [facility] DermPath Lab Received: 10/11/2022 06:43 AM Pathologist: Ruth Mcmullen MD Specimens: A) - Skin, right anterior upper arm B) - Skin, right distal upper arm C) - Skin, left nasal ala 9:15 AM CDT DERMATOPATHOLOGY LABORATORY Final Diagnosis Specimen A. SKIN, right anterior upper arm: RESIDUAL BASAL CELL CARCINOMA; NOT PRESENT AT MARGIN (C44.612) RESIDUAL SQUAMOUS CELL CARCINOMA IN SITU (ALVAREZ'S DISEASE); NOT PRESENT AT MARGIN (D04.61) DERMAL SCAR (L90.5) INCIDENTAL INTRADERMAL MELANOCYTIC NEVUS; NOT PRESENT AT MARGIN (D22.61) Specimen B. SKIN, right distal upper arm: BASAL CELL CARCINOMA; NOT PRESENT AT MARGIN (C44.612) DERMAL SCAR (L90.5) Specimen C. SKIN, left nasal ala: BASAL CELL CARCINOMA, INFILTRATIVE PATTERN (C44.311) 9:15 AM CDT DERMATOPATHOLOGY LABORATORY Clinical History A-C: Basal Cell Carcinoma Check margins 9:15 AM CDT DERMATOPATHOLOGY LABORATORY Gross Description Specimen A: Received is one formalin filled container labeled with the patient's name and designated right anterior upper arm. The specimen consists of a non-oriented ellipse of skin measuring 04f09l1 mm. The epidermal surface is unremarkable. The margin is inked green. The 12 o'clock and 6 o'clock tips are submitted in cassette 1. The remainder of the ellipse is serially sectioned and submitted in cassette 2-3. Jar 0. Specimen B: Received is one formalin filled container labeled with the patient's name and designated right distal upper arm. The specimen consists of a non-oriented ellipse of skin measuring 97b87q8 mm. The epidermal surface is unremarkable. The margin is inked green. The 12 o'clock and 6 o'clock tips are submitted in cassette 1. The remainder of the ellipse is serially sectioned and submitted in cassette 2-3. Jar 0. Specimen C: Received is one formalin filled container labeled with the patient's name and designated left nasal ala. The specimen consists of a shave biopsy measuring 6x5x2 mm. Jar 0. 3 9:[address] [facility] DERMATOPATHOLOGY LABORATORY Microscopic Description Specimen A. SKIN, right anterior upper arm: Within the dermis there are aggregates of basaloid cells with a high nuclear to cytoplasmic ratio and peripheral palisading. This lesion is not present at the margin of the specimen. The epidermis shows parakeratosis, full thickness disorderly maturation of keratinocytes, mitoses at different levels, and dyskeratotic cells. This lesion is not present at the margin of the specimen. There are fibroblasts and collagen bundles oriented parallel to the skin surface with elongated blood vessels, some of which are oriented perpendicular to the skin surface. There are incidental nests of cytologically bland melanocytes within the dermis that mature with depth. This lesion is not present at the margin of the specimen. Specimen B. SKIN, right distal upper arm: Within the dermis there are aggregates of basaloid cells with a high nuclear to cytoplasmic ratio and peripheral palisading. This lesion is not present at the margin of the specimen. There are fibroblasts and collagen bundles oriented parallel to the skin surface with elongated blood vessels, some of which are oriented perpendicular to the skin surface. Specimen C. SKIN, left nasal ala: Within the dermis there are nodular aggregates of basaloid cells associated with fibromyxoid stroma and epithelial-stromal clefts. At the advancing margin of the neoplasm, there are smaller angulated nests that infiltrate the dermis. 3 9:[address] [facility] DERMATOPATHOLOGY LABORATORY Disclaimer An external and internal positive and negative controls are appropriate for the histochemical, immunohistochemical and immunofluorescence stain(s) in this case (if any), except where stated explicitly. The performance characteristics of the stain(s) cited in this report were developed and its performance characteristic determined by the Dermatopathology Laboratory at [facility], directed by Dr. Tatiana Bowers. These tests need not be, and therefore are not, approved by the [place] Food and Drug Administration. The tests are used for clinical purposes. Billing Codes Specimen Charges Stain Charges 57701 38490 03110 1 1 1 3 9:15 AM CDT DERMATOPATHOLOGY LABORATORY Embedded Images 3 9:15 AM CDT DERMATOPATHOLOGY LABORATORY Pathology/Cytology TISSUE SPECIMEN FROM SKIN / Unknown 10/09/2022 10/11/2022 6:43 AM CDT Miscellaneous samples (specimen) TISSUE SPECIMEN FROM SKIN / Unknown 10/09/2022 10/11/2022 6:43 AM CDT Miscellaneous samples (specimen) TISSUE SPECIMEN FROM SKIN / Unknown 10/09/2022 10/11/2022 6:43 AM CDT Denae Chavez MD LAB - PATHOLOGY/CYTO LOGY ORDERABLES DERMATOPATHOLOGY LABORATORY [facility] - Department of Dermatology [address] [phone] documented in this encounter Visit Diagnoses Diagnosis Basal cell carcinoma of skin of right upper limb, including shoulder Basal cell carcinoma of skin of upper limb, including shoulder Basal cell carcinoma of skin of nose Basal cell carcinoma of skin of other and unspecified parts of face documented in this encounter Care Teams Food Safety Scientist Relationship Specialty Start Date End Date Mal Jin DO PCP - General 06/23/19 documented as of this encounter
--- OUTSIDE RECORDS SUMMARY | 2024-08-03 14:43 | XMS_ITS | Clinical Summary ---
Author Organization [facility] Address [address] [place] [address] Care Team Providers Care Asbestos Brake Lining Finisher Name Role Phone Tim Moulton MD Primary Care Provider + Allergies Active Allergy Reactions Criticality Noted Date Comments Codeine Nausea & Vomiting High Morphine Nausea & Vomiting High Medications amLODIPine (NORVASC) 2.5 mg tabletIndication s:cardiac arrythmia Take 2.5 mg by mouth daily 1 Active atorvastatin (LIPITOR) 20 mg tabletIndication s:High cholesterol Take 20 mg by mouth daily Take at bedtime 1 Active cefdinir (OMNICEF) 300 mg capsuleIndicatio ns:Urinary Tract/Genitourin marie Infection Take 300 mg by mouth 2 (two) times a day 1 Active furosemide (LASIX) 20 mg tabletIndication s:hypertension Take 20 mg by mouth 2 (two) times a day 1 Active gabapentin (NEURONTIN) 300 mg capsuleIndicatio ns:Neuropathic Pain Take 300 mg by mouth daily 1 Active HYDROcodone-acet aminophen (NORCO) 5-325 mg per tabletIndication s:Pain Take 1 tablet by mouth 3 (three) times a day 1 Active levothyroxine (SYNTHROID) 75 mcg tablet Take 75 mcg by mouth bag checker before breakfast 1 Active lisinopriL (PRINIVIL,ZESTRI L) 40 mg tabletIndication s:hypertension Take 40 mg by mouth daily 1 Active meloxicam (MOBIC) 7.5 mg tabletIndication s:Pain Take 7.5 mg by mouth daily Daily 1 Active metFORMIN (GLUCOPHAGE) 500 mg tabletIndication s:type 2 diabetes mellitus Take 500 mg by mouth 2 (two) times a day with meals 1 Active metoprolol XL (TOPROL-XL) 100 mg 24 hr tabletIndication s:hypertension Take 50 mg by mouth daily 1 Active potassium chloride 10 mEq/100 mL 10 mEq daily By mouth 1 Active ergocalciferol (VITAMIN D) 50,000 unit capsule Take 50,000 Units by mouth once a week 1 Active acetaminophen (TYLENOL) 325 mg tabletIndication s:Fever,Pain Take 2 tablets (650 mg total) by mouth every 4 (four) hours as needed for pain, headaches or fever 30 tablet 1 Active Active Problems Problem Noted Date Diagnosed Date Pyelonephritis 04/19/2021 Assessment & Plan (04/20/2021 7:48 PM LOOM STARTER): Started on Rocephin in ER, will cont along with IVF, improving, but WBC still elevated, cont IV antibiotics Will need f/u with urology after treatment for stent removal Weakness 04/19/2021 Assessment & Plan (04/19/2021 8:35 AM LOOM STARTER): PT/OT consulted, along with IVF Occipital scalp laceration 04/19/2021 Assessment & Plan (04/19/2021 8:35 AM LOOM STARTER): S/p repair with mic in ER Primary hypertension 04/19/2021 Assessment & Plan (04/19/2021 8:36 AM LOOM STARTER): Resume home meds once reconciled Acquired hypothyroidism 04/19/2021 Assessment & Plan (04/19/2021 8:36 AM LOOM STARTER): Can resume synthroid once reconciled Type 2 diabetes mellitus 04/19/2021 Assessment & Plan (04/19/2021 8:42 AM LOOM STARTER): Can resume home meds once reconciled Ataxic gait 01/22/2013 Head revolving around 01/13/2013 Hydronephrosis Ureteral stent retained Immunizations Immunization Administration Dates Next Due Tdap 04/18/2021 Surgical History Surgery Date Site/Laterality Comments CHOLECYSTECTOMY HYSTERECTOMY APPENDECTOMY JOINT REPLACEMENT Left Knee Medical History Medical History Date Comments Diabetes mellitus (HCC) Hypertension Arthritis hands Cancer (HCC) Thyroid Thyroid disease Thyroid CA Family History Medical History Relation Name Comments Alzheimer's disease Brother Diabetes Brother Arthritis Father Cancer Father Heart attack Mother Heart disease Mother Hypertension Mother Relation Name Status Comments Brother Father Mother Social History Tobacco Use Types Packs/Day Years Used Date Smoking Tobacco: Never Tobacco Cessation:Counseling Given: No AUDIT-C Answer Date Recorded Q1: How often do you have a drink containing alc ohol? Never 04/19/2021 Average Number of Drinks Not on file 021 Frequency of Binge Drinking Not on file 03/27 Comments Unknown Sex and Gender Information Value Date Recorded Sex Assigned at Not on file Legal Sex Female 9:36 AM LOOM STARTER Gender Identity Not on file Sexual Orientation Not on file Obstetrics History Last Filed Vital Signs Vital Sign Reading Time Taken Comments Blood Pressure 157/72 04/22/2021 11:37 AM LOOM STARTER Pulse 63 04/22/2021 11:37 AM LOOM STARTER Temperature 36.7 C (98 F) 04/22/2021 11:37 AM LOOM STARTER Respiratory Rate 18 04/22/2021 11:37 AM LOOM STARTER Oxygen Saturation 94% 04/22/2021 11:37 AM LOOM STARTER Inhaled Oxygen Concentration - - Weight 60.3 kg (133 lb) 04/19/2021 3:09 AM LOOM STARTER Height 167.6 cm (5' 6 ) 04/19/2021 3:09 AM LOOM STARTER Body Mass Index 21.47 04/19/2021 3:09 AM LOOM STARTER Plan of Treatment Not on file Insurance [facility] Advance Directives For more information, please contact: [phone] * Full Code (Latest Code Status on File) Date Activated Date Inactivated Comments 04/19/2021 8:33 AM 04/22/2021 7:51 PM Care Teams Asbestos Brake Lining Finisher Relationship Specialty Start Date End Date Tim Moulton [place] [address] [place] [address] PCP - General 07/04/20
--- OUTSIDE RECORDS SUMMARY | 2024-08-03 14:43 | XMS_ITS | Encounter Summary ---
Author Organization [facility] Address [address] [place] [address] Care Team Providers Care Financial Investment Adviser Name Role Phone Mal Jin Primary Care Provider Encounter Details Date Type Department Care Team (Late st Contact Info) Description 02/26/2023 Lab Requisition [facility] - DermPath Lab [address] [facility] [place] [address] Denae Chavez MD [address] [place] [phone] Basal cell carcinoma of skin of left upper limb, including shoulder Social History Tobacco Use Types Packs/Day Years [...] Priority Date/Time Associated Diagnosis Comments DERMATOPATHOLOGY Routine 02/26/2023 12:0 0 AM CDT Basal cell carcinoma of skin of left upper limb, including shoulder documented in this encounter Results * DERMATOPATHOLOGY (02/26/2023 12:00 AM CDT) Case Report Dermatopathology Report Case: [id number] Authorizing Provider: Denae Chavez MD Collected: 02/26/2023 12:00 AM Ordering Location: [facility] Lab Received: 02/27/2023 01:55 PM Pathologist: Ruth Mcmullen MD Specimen: Skin, left posterior shoulder B 5:34 PM CDT DERMATOPATHOLOGY LABORATORY Final Diagnosis Specimen A. SKIN, left posterior shoulder B: BASAL CELL CARCINOMA (C44.619) NOT PRESENT AT MARGIN DERMAL SCAR (L90.5) 5:34 PM CDT DERMATOPATHOLOGY LABORATORY Clinical History Basal Carcinoma. Check Margins 5:34 PM CDT DERMATOPATHOLOGY LABORATORY Gross Description Specimen A: Received is one formalin filled container labeled with the patient's name and designated left posterior shoulder B. The specimen consists of a non-oriented ellipse of skin measuring 93t68o6 mm. The margin is inked green. The 12 o'clock and 6 o'clock tips are submitted in cassette 1. The remainder of the ellipse is serially sectioned and submitted in cassette 2 - 4. Jar 0. 5:34 PM CDT DERMATOPATHOLOGY LABORATORY Microscopic Description Specimen A. SKIN, left posterior shoulder B: Within the dermis there are aggregates of basaloid cells with a high nuclear to cytoplasmic ratio and peripheral palisading. This lesion is not present at the margin of the specimen. There are fibroblasts and collagen bundles oriented parallel to the skin surface with elongated blood vessels, some of which are oriented perpendicular to the skin surface. 5:34 PM CDT DERMATOPATHOLOGY LABORATORY Disclaimer An external and internal positive and negative controls are appropriate for the histochemical, immunohistochemical and immunofluorescence stain(s) in this case (if any), except where stated explicitly. The performance characteristics of the stain(s) cited in this report were developed and its performance characteristic determined by the Dermatopathology Laboratory at [facility], directed by Dr. Tatiana Bowers. These tests need not be, and therefore are not, approved by the [place] Food and Drug Administration. The tests are used for clinical purposes. Billing Codes Specimen Charges Stain Charges 66678 1 3 5:34 PM CDT DERMATOPATHOLOGY LABORATORY Embedded Images 3 5:34 PM CDT DERMATOPATHOLOGY LABORATORY Pathology/Cytolog y TISSUE SPECIMEN FROM SKIN / Unknown 02/26/2023 02/27/2023 1:55 PM CDT Denae Chavez MD LAB - PATHOLOGY/CYTO LOGY ORDERABLES DERMATOPATHOLOGY LABORATORY [facility] - Department of Dermatology [address] [phone] documented in this encounter Visit Diagnoses Diagnosis Basal cell carcinoma of skin of left upper limb, including shoulder Basal cell carcinoma of skin of upper limb, including shoulder documented in this encounter Care Teams Financial Investment Adviser Relationship Specialty Start Date End Date Mal Jin DO PCP - General 06/23/19 documented as of this encounter
--- OUTSIDE RECORDS SUMMARY | 2024-08-03 14:43 | XMS_ITS | Referral Summary ---
Author Organization [facility] [employer] Address [address] [place] [address] Care Team Providers Care Signals Intelligence Superintendent Name Role Phone Mal Jin DO Primary Care Provider Source Comments [facility],non-owned Affiliates and Associated Physician Practices is amultiple site organization consisting of ambulatory clinics and hospital sitesin [place], [place], [place] and [place]. This disclosure is being madepursuant to the Care Everywhere program and may not contain all information available regarding this patient. Last updated 18.[facility] [employer] Allergies Active Allergy Reactions Criticality Noted Date [...] Comments Blood Pressure 162/68 06/23/2019 8:02 AM DEVELOPMENTAL SPECIALIST Pulse 65 06/23/2019 8:02 AM DEVELOPMENTAL SPECIALIST Temperature 36.8 C (98.3 F) 09/13/2018 12:46 AM CDT Respiratory Rate 15 09/13/2018 2:24 AM CDT Oxygen Saturation 96% 09/13/2018 2:24 AM CDT Inhaled Oxygen Concentration - - Weight 59 kg (130 lb) 06/23/2019 8:02 AM DEVELOPMENTAL SPECIALIST Height 167.6 cm (5' 6 ) 06/23/2019 8:02 AM DEVELOPMENTAL SPECIALIST Body Mass Index 20.98 06/23/2019 8:02 AM DEVELOPMENTAL SPECIALIST Plan of Treatment Not on file Insurance Payer Benefit Plan / Group Subscriber ID Effective Dates Phone Address Type [employer] MED[employer] ADV HMO/POS [id number] 05/26/2018-Prese nt 00 [employer] CLAIMS [address] [place] [address] Medicare- Managed Care [employer] MED[employer] ADV HMO/POS [id number] 05/26/2018-Prese nt 00 [employer] CLAIM[employer] [address] [place] [address] Medicare- Managed Care [employer] MED[employer]ARE ADV HMO/POS [id number] 05/26/2018-Prese nt 00 [employer] CLAIMS [address] [place] [address] Medicare- Managed Care [employer] MED[employer]ARE ADV HMO/POS [id number] 05/26/2018-Prese nt 00 [employer] CLAIMS [address] [place] [address] Medicare- Managed Care [employer] MED[employer]ARE ADV HMO/POS [id number] 05/26/2018-Prese nt 00 [employer] CLAIMS [address] [place] [address] Medicare- Managed Care [employer] MEDICARE ADV HMO/POS [id number] 05/26/2018-Prese nt [phone] [employer] CLAIMS [address] [place] [address] Medicare- Managed Care [employer] MEDICARE ADV HMO/POS [id number] 05/26/2018-Prese nt [phone] [employer] CLAIMS [address] [place] [address] Medicare- Managed Care [employer] MEDICARE ADV HMO/POS [id number] 05/26/2018-Prese nt [phone] [employer] CLAIMS [address] [place] [address] Medicare- Managed Care [employer] MED[employer]ARE ADV HMO/POS [id number] 05/26/2018-Prese nt [phone] [employer] CLAIMS [address] [place] [address] Medicare- Managed Care [employer] MED[employer]ARE ADV HMO/POS [id number] 05/26/2018-Prese nt [phone] [employer] CLAIMS [address] [place] [address] Medicare- Managed Care [employer] MEDICARE ADV HMO/POS [id number] 03/26/2016-Pres ent [address] [place] [address] Medicare- Managed Care Care Teams Signals Intelligence Superintendent Relationship Specialty Start Date End Date Mal Jin DO PCP - General 06/23/19
--- OUTSIDE RECORDS SUMMARY | 2024-08-03 14:43 | XMS_ITS | Clinical Summary ---
Author Organization [facility] Address [facility] [place] [address] Care Team Providers Care Owner [employer] Name Role Phone Jeovany Zuniga MD Primary Care Provider [phone] Allergies Active Allergy Reactions Criticality Noted Date Comments Codeine Itching Morphine GI Upset,Itching 09/20/2017 Tramadol Other (see comment) Medium 06/23/2019 Can't Function Medications metoprolol succinate ER (TOPROL XL) 12.5 mg TABLET SR 24 HR 24 hr tablet [The details of the medication are not available because there are pending changes by a home health clinician.] 30 tablet 01/05/20 Active Additional Information Patient taking differently:12.5 mg Oral Daily,Indications: Hypertension, Reported on 06/11/2023 aspirin EC (ECOTRIN) 81 MG tablet [The details of the medication are not available because there are pending changes by a home health clinician.] 30 tablet 01/04/20 Active Additional Information Patient taking differently:81 mg Oral Daily,Indications: Cardiac Arrhythmia, Reported on 01/29/2022 levothyroxine (SYNTHROID) 75 MCG tabletIndication s:Health care maintenance TAKE 1 TABLET BY MOUTH EVERY MORNING 90 tablet 3 03/18/20 Active Additional Information Patient taking differently: 75 mcg Oral Every morning, Reported on 06/11/2023 metoprolol succinate ER (TOPROL-XL) 25 MG 24 hr tabletIndication s:Benign essential hypertension TAKE 1/2 TABLET (12.5 MG TOTAL) BY MOUTH DAILY 90 tablet 3 03/20/20 Active Additional Information Patient taking differently: 12.5 mg Oral Daily, Reported on 06/11/2023 mirabegron ER (MYRBETRIQ) 25 MG 24 hr tabletIndication s:Overactive bladder Take 1 tablet (25 mg total) by mouth daily. 90 tablet 3 04/02/20 Active lisinopril (PRINIVIL) 40 MG tabletIndication s:Benign essential hypertension TAKE 1 TABLET BY MOUTH EVERY DAY FOR HYPERTENSION 90 tablet 1 05/13/20 Active Additional Information Patient taking differently: 40 mg Oral Daily, Reported on 06/11/2023 acetaminophen (TYLENOL) 500 MG tabletIndication s:Fever and Chills Take 1 tablet (500 mg total) by mouth every 4 (four) hours as needed for Fever or Pain. Indications: Fever and Chills 60 tablet 1 05/23/20 Active ferrous sulfate, 65 mg elemental, 325 (65 FE) MG tabletIndication s:Anemia, unspecified type Take 1 tablet (325 mg total) by mouth daily with breakfast. 90 tablet 05/23/20 Active gabapentin (NEURONTIN) 300 MG capsule Take 1 capsule (300 mg total) by mouth 3 (three) times daily. Active furosemide (LASIX) 20 MG tablet Take 1 tablet (20 mg total) by mouth daily. 04/21/20 Active potassium chloride CR (K-TAB) 10 MEQ Tab CR tablet Take 1 tablet (10 mEq total) by mouth daily. 04/21/20 Active FARXIGA 10 MG tablet Take 1 tablet (10 mg total) by mouth daily. 05/12/20 Active Insulin Pen Needle (PEN NEEDLES) 32G X 5 MM [facility] Use pen needles as directed 90 each 01/26/20 22 022 Discontin ued(Stop Taking at Discharge ) Active Problems Problem Noted Date Diagnosed Date Current moderate episode of major depressive disorder without prior episode 05/23/2022 Vitamin D deficiency 05/23/2022 Anemia, unspecified type 05/23/2022 Atherosclerosis of abdominal aorta 05/23/2022 Calculus of other lower urinary tract location 1 Acute colitis 07/18/2021 Ureteral stent retained 04/30/2021 Weakness 04/19/2021 Overview (04/30/2021): Last Assessment & Plan: PT/OT consulted, along with IVF Pyelonephritis 04/19/2021 Overview (04/30/2021): Last Assessment & Plan: Started on Rocephin in ER, will cont along with IVF, improving, but WBC still elevated, cont IV antibiotics Will need f/u with urology after treatment for stent removal Hydronephrosis 03/14/2021 Osteopenia 12/09/2017 Carpal tunnel syndrome 10/02/2017 Hydrocephalus, idiopathic normal pressure ([facility] HHS/HCC) 03/09/2017 Venous insufficiency 01/13/2017 Choledocholithiasis 12/09/2016 Osteoarthritis of right knee 04/24/2016 Type 2 diabetes mellitus wit h stage 2 chronic kidney disease, without long-term current use of insulin ([facility] HHS/[facility]) 09/18/2015 Overview (04/30/2021): Last Assessment & Plan: Can resume home meds once reconciled Hypercalcemia 09/18/2015 Peripheral neuropathy 09/08/2015 Primary hypertension 08/09/2015 Overview (04/30/2021): Last Assessment & Plan: Resume home meds once reconciled Dyslipidemia 08/09/2015 Acquired hypothyroidism 08/09/2015 Overview (04/30/2021): Last Assessment & Plan: Can resume synthroid once reconciled Ataxic gait 01/22/2013 Resolved Problems Problem Noted Date Diagnosed Date Resolved Date Urinary tract infection 01/03/202202/25 UTI (urinary tract infection) 01/03/2022 03/25/2022 Acute encephalopathy 12/30/2021 022 Physical deconditioning 07/24/202102/25 Occipital scalp laceration 04/19/2021 1 Overview (04/30/2021): Last Assessment & Plan: S/p repair with mic in ER Actinic keratosis 03/24/2018 04/16/2019 Paresthesia of hand 02/06/2018 03/25/20 22 Cellulitis 11/27/2017 04/16/2019 Ataxia 03/09/2017 04/16/2019 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 04/16/2019 Immunizations Name Administration Dates Next Due Fluzone High Dose - >Age 65 (Prefilled Syringe) 03/25/2022,03/07/2021,01/27/2020,2017,02/15/2017,03/10/2016,03/22/2015 Influenza (Generic) 02/26/2019,03/23/2013 Influenza Adult (Generic) 01/27/2020,08/2018,03/07/2018,2016,03/10/2016,03/22/2015,02/23/2013 MODERNA COVID-19 (12+) MRNA, LNP-S, PF, 100 MCG/ 0.5 ML DOSE 07/27/2020,06/29/2020 Pneumococcal (Pneumovax 23) 03/25/2022 Pneumococcal (Prevnar 13) 02/26/2019,03/22/2015 Tdap (Boostrix) 11/27/2017 Tdap (Generic) 04/18/2021, 8,07/01/2014,2011 Family History Medical History Relation Comments Dementia Brother Diabetes Brother Hypertension Brother Cancer Father Hypertension Mother Relation Status Comments Brother december 2020 pass ed away Father Mother Social History Tobacco Use Types Packs/Day Years Used Date Smoking Tobacco: Never Smokeless Tobacco: Never Tobacco Cessation:Counseling Given: No Alcohol Use Standard Drinks/Week Comments Yes 0 (1 standard drink = 0.6 oz pur e alcohol) rare use - once a year PHQ-2 Answer Date Recorded PHQ-2 Score - If the patient scores above 3, please move on to questions 3-9 1 03/25/2022 Comments No Sex and Gender Information Value Date Recorded Sex Assigned at Not on file Legal Sex Female 10:41 PM CDT Gender Identity Not on file Sexual Orientation Not on file Last Filed Vital Signs Vital Sign Reading Time Taken Comments Blood Pressure 105/85 09/13/2023 10:13 AM CDT Pulse 60 09/13/2023 10:13 AM CDT Temperature 36.6 C (97.9 F) 09/13/2023 10:13 AM CDT Respiratory Rate 18 09/13/2023 10:1 3 AM CDT Oxygen Saturation 97% 09/13/2023 10: 13 AM CDT Inhaled Oxygen Concentration - - Weight 62.5 kg (137 lb 12.6 oz) 024 10:13 AM CDT Height 167.6 cm (5' 6 ) 09/13/2023 10:1 3 AM CDT Body Mass Index 22.24 09/13/2023 10:13 AM CDT Plan of Treatment Health Maintenance Due Date Last Done Comments ASCVD Statin 1940 Kidney Health Evaluation 1940 Diabetes: Retinopathy Eye Exam 1958 Zoster Vaccines (1 of 2) 1990 Annual Medicare Wellness Visit 2005 Dexa Scan (General) 2005 RSV Immunization or 60+ Years (1 - 1-dose 75+ series) 2015 Hemoglobin A1C 08/19/2022 02/19/2022, 06/0 12/2021, 03/28/2020, Additional history exists ASCVD LDL 02/19/2023 02/19/2022, 03/27, 01/08/2018, Additional history exists Lipid Panel 02/19/2023 02/19/2022, 03/27, 01/08/2018, Additional history exists COVID-19 Vaccine ( season) 2024 07/27/2020, 06/29/2020 Influenza Adult (#1) 2024 03/25/2022, 03/07/2021, 01/27/2020, Additional history exists PHQ-2 (Phys[facility] [place]) 05/26/2024 DTaP, Tdap and Td Vaccines (6 - Td or Tdap) 04/18/2031 04/18/2021, 11/27/2017, 11/27/2017, Additional history exists Pneumococcal Vaccine: 65+ Years Completed 03/25/2022, 02/26/2019, 03/22/2015 Meningococcal B Vaccine Aged Out No l onger eligible based on patient's age to complete this topic Meningococcal Vaccine Aged Out No chio errol eligible based on patient's age to complete this topic RSV Immunizations Under 20 Months Aged Out No longer eligible based on patient's age to complete this topic Medical Devices Implanted Type Area Director Life Sciences Device Identifier Shelf Expiration Date Model / Serial / Lot Stent Ureteral [employer] Contour 6fr X 22cm - [id number] Implanted:Qty : 1 on 04/12/2021 by Chaparro Salomon MD at [facility] Stent Right: Ureter [employer] [id number] 01/29/2024 [id number] Explanted Type Area Director Life Sciences Device Identifier Shelf Expiration Date Model / Serial / Lot Stent Ureteral [employer] Contour 6fr X 22cm - [id number] Implanted:Qty : 1 on 03/15/2021 by Chaparro Salomon MD at [facility] Explanted:Qty : 1 on 04/12/2021 by Chaparro Salomon MD at [facility] Stent Right: Ureter [employer] [id number] 11/25/2023 [id number] Procedures Procedure Name Priority Date/Time Associated Diagnosis Comments LIPID PANEL Routine 02/19/2022 10:25 AM CDT Type 2 diabetes mellitus with diabetic polyneuropathy, without long-term current use of insulin HEMOGLOBIN, GLYCOSYLATED Routine 02/19/2022 10:25 AM CDT Type 2 diabetes mellitus with diabetic polyneuropathy, without long-term current use of insulin from Last 3 Months or Most Recently Relevant to Health Maintenance Results * (ABNORMAL) HEMOGLOBIN, GLYCOSYLATED (02/19/2022 10:25 AM CDT) HGB A1C 7.1(H) <5.7 % 02/19/2022 12:04 PM CDT [facility] Comment: ADA GUIDELINES 2010 5.7 TO 6.4% INCREASED RISK OF DIABETES > OR = 6.5% CONSISTENT WITH DIABETES ESTIMATED AVG GLUCOSE 157 mg/dL 02/19/2022 12:04 PM CDT [facility] 02/19/2022 10:2 5 AM CDT Bharat Gaytan DO LABORATORY Final Result [facility] [address] [place] [address], [place] [phone] * (ABNORMAL) LIPID PANEL (02/19/2022 10:25 AM CDT) CHOLESTEROL 262(H) <200 MG/DL 02/19/2022 12:07 PM CDT [facility] TRIGLYCERIDES 263(H) <150 MG/DL 02/19/2022 12:07 PM T [facility] HDL 36(L) >40.0 MG/DL 02/19/2022 12:07 PM T [facility] LDL (CALCULATED) 173(H) <100 MG/DL 02/19/2022 12:07 PM T [facility] NON HDL CHOLESTEROL 226(H) <130 MG/DL 02/19/2022 12:07 PM T [facility] CHOL/HDL RATIO 7.3(H) 0.0 - 4.5 02/19/2022 12:07 PM CDT [facility] VLDL CALCULATION 53 5 - 55 MG/DL 02/19/2022 12:07 PM T [facility] LIPID INTERPRETATION 02/19/2022 12:07 PM T [facility] Comment: NIH CONCENSUS REPORT RECOMMENDATIONS: ADULT CHILD LOW RISK: CHOLESTEROL <200 <170 TRIGLYCERIDE <150 --- HDL >=60 --- LDL <100 <110 BORDERLINE: CHOLESTEROL 200-239 170-199 TRIGLYCERIDE 150-199 --- HDL 40-59 --- LDL 100-159 110-129 HIGH RISK: CHOLESTEROL >=240 >=200 TRIGLYCERIDE >=200 --- HDL <40 --- LDL >=160 >=130 02/19/2022 10:2 5 AM CDT Bharat Gaytan DO LABORATORY Final Result [facility] [address] [place] [address], [place] [phone] from Last 3 Months or Most Recently Relevant to Health Maintenance Insurance [employer] Advance Directives Documents on File Type Date Recorded Patient Toggler Expl anation Power of Section Plotter Operator Advance Directives and Livin g Will 01/07/2022 2:53 PM * Full Code (Latest Code Status on File) Date Activated Date Inactivated Comments 01/26/2022 3:10 PM 03/26/2022 6:42 PM * Full Code Date Activated Date Inactivated Comments 01/03/2022 9:49 PM 01/25/2022 12:18 PM * Full Code Date Activated Date Inactivated Comments 12/30/2021 4:34 AM 01/03/2022 9:18 PM * Full Code Date Activated Date Inactivated Comments 09/13/2021 11:21 PM 12/28/2021 7:19 PM * Full Code Date Activated Date Inactivated Comments 08/17/2021 11:51 PM 08/18/2021 9:21 PM Care Teams Owner [employer] Relationship Specialty Start Date End Date Jeovany Zuniga MD [address] [place] [address] PCP - General FAMILY PRACTICE 09/10/23
--- OUTSIDE RECORDS SUMMARY | 2024-08-03 14:43 | XMS_ITS | Clinical Summary ---
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 Name Role Phone Unavailable Primary Care Provider Unavailabl e Medications potassium chloride (KLOR-CON M10) 10 mEq Extended Release tablet Take 1 tablet by mouth every day 90 Tablet 1 04/18/2024 Active Encounters Date Type Department Care Team Description 07/13/2024 External Device Data [facility] ABSTRACTION Provider, Abstract 06/17/2024 External Device Data [facility] ABSTRACTION Provider, Abstract 06/16/2024 External Device Data [facility] ABSTRACTION Provider, Abstract 06/15/2024 External Device Data [facility] ABSTRACTION Provider, Abstract 06/09/2024 External Device Data [facility] ABSTRACTION Provider, Abstract 06/08/2024 External Device Data [facility] ABSTRACTION Provider, Abstract from Last 3 Months Social History Tobacco Use Types Packs/Day Years Used Date Smoking Tobacco: Never Assessed Comments Unknown Sex and Gender Information Value Date Recorded Sex Assigned at Not on file Legal Sex Female 9:32 AM FEED [employer] Gender Identity Not on file Sexual Orientation Not on file Plan of Treatment Health Maintenance Due Date Last Done Comments DTAP/TDAP/TD VACCINES (1 - Tdap) 1959 PNEUMOCOCCAL VACCINE 50+ YEARS (1 of 1 - PCV) 05/17/19 90 ZOSTER VACCINE (1 of 2) 1990 OSTEOPOROSIS SCREENING 2005 RSV VACCINE (60+ or ) (1 - 1-dose 75+ series) 2015 INFLUENZA VACCINE (#1) 2023 Insurance [employer] Medicare Part D
--- OUTSIDE RECORDS SUMMARY | 2024-08-03 14:43 | XMS_ITS | Encounter Summary ---
Author Organization [facility] Address [address] [place] [address] Care Team Providers Care Mastercam Programmer Name Role Phone Mal Jin Primary Care Provider Encounter Details Date Type Department Care Team (Late st Contact Info) Description 01/08/2024 Lab Requisition [facility] D[facility] [address] [facility] [address] [facility] [place] [address] Denae Chavez MD [address] [place] [address] [phone] Neoplasm of uncertain behavior of skin Social [...] Priority Date/Time Associated Diagnosis Comments DERMATOPATHOLOGY Routine 01/08/2024 12:0 0 AM CDT Neoplasm of uncertain behavior of skin documented in this encounter Results * DERMATOPATHOLOGY (01/08/2024 12:00 AM CDT) Case Report Dermatopathology Report Case: [id number] Authorizing Provider: Denae Chavez MD Collected: 01/08/2024 12:00 AM Ordering Location: [facility] - Received: 01/09/2024 04:24 PM DermPath Lab Pathologist: Lillie Antoine MD Specimen: Skin, righ neck 3:13 PM CDT DERMATOPATHOLOGY LABORATORY Final Diagnosis Specimen A. 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 The specimen consists of a shave biopsy measuring 8x7x1 mm. Jar 0. 3:13 PM CDT DERMATOPATHOLOGY LABORATORY Microscopic Description Specimen A. SKIN, righ neck: The epidermis shows parakeratosis, full thickness disorderly maturation of keratinocytes, mitoses at different levels, and dyskeratotic cells. 3:13 PM CDT DERMATOPATHOLOGY LABORATORY Disclaimer An external and internal positive and negative controls are appropriate for the histochemical, immunohistochemical and immunofluorescence stain(s) in this case (if any), except where stated explicitly. The performance characteristics of the stain(s) cited in this report were developed and its performance characteristic determined by the Dermatopathology Laboratory at [facility], directed by Dr. Tatiana Bowers. These tests need not be, and therefore are not, approved by the [place] Food and Drug Administration. The tests are used for clinical purposes. Billing Codes Specimen Charges Stain Charges 97441 1 3:13 PM CDT DERMATOPATHOLOGY LABORATORY Embedded Images 3:13 PM CDT DERMATOPATHOLOGY LABORATORY Pathology/Cytolog y TISSUE SPECIMEN FROM SKIN / Unknown 01/08/2024 01/09/2024 4:24 PM CDT Denae Chavez MD LAB - PATHOLOGY/CYTO LOGY ORDERABLES DERMATOPATHOLOGY LABORATORY [facility] - Department of Dermatology [facility] [address] [place] [address], [address] [phone] documented in this encounter Visit Diagnoses Diagnosis Neoplasm of uncertain behavior of skin documented in this encounter Care Teams Mastercam Programmer Relationship Specialty Start Date End Date Mal Jin DO PCP - General 06/23/19 documented as of this encounter
--- OUTSIDE RECORDS SUMMARY | 2024-08-03 14:43 | XMS_ITS | Patient Health Summary ---
Author Organization [facility] Address [address] [place] [address] Care Team Providers Care Php Programmer Name Role Phone Mal Jin Primary Care Provider Note from [facility],non-owned Affiliates and Associated Physician Practices is amultiple site organization consisting of ambulatory clinics and hospital sitesin [place], [place], [place] and [place]. This disclosure is being madepursuant to the Care Everywhere program and may not contain all information available regarding this patient. Last updated 18.[facility] Allergies * Codeine(Itching) * Morphine(Itching) * Tramadol(Other) -Medium Criticality Medications * Be aware that medications may not be up to date on this document. Alwaysverify current medications with the patient. * amLODIPine (NORVASC) 2.5 MG tablet(Started 06/30/2018) Take 2.5 mg by mouth once daily * lisinopril (PRINIVIL; ZESTRIL) 40 MG tablet(Started 02/17/2019) TAKE ONE TABLET BY MOUTH ONCE DAILY * atorvastatin (LIPITOR) 20 MG tablet(Started 06/30/2018) * furosemide (LASIX) 20 MG tablet(Started 04/10/2019) * metoprolol succinate XL 24hr (TOPROL XL) 50 MG tablet(Started 04/23/2019) TAKE ONE TABLET BY MOUTH ONCE DAILY * levothyroxine (SYNTHROID) 75 MCG tablet(Started 04/26/2019) * metFORMIN ER 24hr (GLUCOPHAGE XR) 500 MG tablet(Started 01/26/2019) * POTASSIUM PHOSPHATE PO Social History Tobacco Use Types Packs/Day Years [...] Comments Blood Pressure 162/68 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 Pulse 65 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 Temperature 36.8 C (98.3 F) 09/13/2018 12:46 AM CDT Respiratory Rate 15 09/13/2018 2:24 AM CDT Oxygen Saturation 96% 09/13/2018 2:24 AM CDT Inhaled Oxygen Concentration - - Weight 59 kg (130 lb) 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 Height 167.6 cm (5' 6 ) 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 Body Mass Index 20.98 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 Procedures * DERMATOPATHOLOGY(Performed 01/08/2024) Performed for Neoplasm of uncertain behavior of skin * DERMATOPATHOLOGY(Performed 09/12/2023) Performed for Neoplasm of uncertain behavior of skin * DERMATOPATHOLOGY(Performed 07/03/2023) Performed for Neoplasm of uncertain behavior of skin * DERMATOPATHOLOGY(Performed 04/08/2023) Performed for Neoplasm of uncertain behavior of skin * DERMATOPATHOLOGY(Performed 02/26/2023) Performed for Basal cell carcinoma of skin of left upper limb, including shoulder * DERMATOPATHOLOGY(Performed 01/21/2023) Performed for Neoplasm of uncertain behavior of skin * DERMATOPATHOLOGY(Performed 10/09/2022) Performed for Basal cell carcinoma of skin of right upper limb, including shoulder [ICD-10-CM], Basal cell carcinoma of skin of nose [ICD-10-CM] * DERMATOPATHOLOGY(Performed 09/20/2022) Performed for Neoplasm of uncertain behavior of skin * DERMATOPATHOLOGY(Performed 06/21/2022) Performed for Squamous cell carcinoma of skin of left upper limb, including shoulder * DERMATOPATHOLOGY(Performed 06/05/2022) Performed for Neoplasm of uncertain behavior of skin * NM BRAIN IMAGING JOSEPH SCAN(Performed 12/31/2019) Performed for Parkinsons * MRI BRAIN WO CONTRAST(Performed 12/31/2019) Performed for NPH (normal pressure hydrocephalus) (HCC) * XR FOOT RIGHT 3VW OR MORE(Performed 09/13/2018) Performed for Foot pain, right * URINALYSIS W/MICROSCOPIC NO CULTURE(Performed 09/13/2018) * CULTURE URINE(Performed 09/13/2018) * T4 FREE(Performed 09/13/2018) * TSH(Performed 09/13/2018) * LIPASE BLOOD(Performed 09/13/2018) * COMPREHENSIVE METABOLIC PANEL(Performed 09/13/2018) * CBC W AUTO DIFFERENTIAL(Performed 09/13/2018) Results * DERMATOPATHOLOGY (01/08/2024 12:00 AM CDT) Only the most recent of10 resultswithin the time period is included. Case Report Dermatopathology Report Case: [id number] Authorizing Provider: Denae Chavez MD Collected: 01/08/2024 12:00 AM Ordering Location: [facility] - Received: 01/09/2024 04:24 PM DermPath Lab Pathologist: Lillie Antoine MD Specimen: Skin, righ neck 4 3:13 PM CDT DERMATOPATHOLOGY LABORATORY Final Diagnosis Specimen A. 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 The specimen consists of a shave biopsy measuring 8x7x1 mm. Jar 0. 4 3:13 PM CDT DERMATOPATHOLOGY LABORATORY Microscopic Description Specimen A. SKIN, righ neck: The epidermis shows parakeratosis, full thickness disorderly maturation of keratinocytes, mitoses at different levels, and dyskeratotic cells. 4 3:13 PM CDT DERMATOPATHOLOGY LABORATORY Disclaimer An external and internal positive and negative controls are appropriate for the histochemical, immunohistochemical and immunofluorescence stain(s) in this case (if any), except where stated explicitly. The performance characteristics of the stain(s) cited in this report were developed and its performance characteristic determined by the Dermatopathology Laboratory at [facility], directed by Dr. Tatiana Bowers. These tests need not be, and therefore are not, approved by the [place] Food and Drug Administration. The tests are used for clinical purposes. Billing Codes Specimen Charges Stain Charges 99276 1 4 3:13 PM CDT DERMATOPATHOLOGY LABORATORY Embedded Images 4 3:13 PM CDT DERMATOPATHOLOGY LABORATORY Pathology/Cytolog y TISSUE SPECIMEN FROM SKIN / Unknown 01/08/2024 01/09/2024 4:24 PM CDT Denae Chavez MD LAB - PATHOLOGY/CYTO LOGY ORDERABLES DERMATOPATHOLOGY LABORATORY [facility] - Department of Dermatology [address], [address] [phone] * NM BRAIN IMAGING JOSEPH SCAN (12/31/2019 2:42 PM CDT) Anatomical Region Laterality Modality Head Nuclear Medicine 12/31/2019 2:28 PM CDT Impressions 12/31/2019 4:32 PM CDT IMPRESSION: Overall mildly decreased dopaminergic activity in the right cerebral hemisphere, but the comma-shaped activity is preserved bilaterally. Findings are probably not supportive of parkinsonian syndromes. Dictated by Tila Cristobal MD (residential mental health worker). This report was approved by Tila Cristobal on 12/31/2019 4:02 PM . I, Dr. REY SERRA M.D. have personally reviewed and interpreted this examination/study. This report was electronically signed by REY SERRA M.D. on 12/31/2019 4:32 PM . Narrative 12/31/2019 4:32 PM CDT PROCEDURE: Dopamine transporter (DaTscan) brain SPECT/CT HISTORY: 79-year-old female with 4 year history of leaning forward and shuffling with walking, bradykinesia and some urinary urgency and stress incontinence. No cognitive decline but has personality changes. MR brain dated 12/31/2019 showed hydrocephalus. Patient's height 168 cm; weight 130 lb. TECHNIQUE: 45 minutes after oral administration of SSKI for thyroid blockade, 5.5 mCi I-123 Ioflupane was administered intravenously in the left forearm. Three hours later, tomographic whole brain SPECT/CT imaging was performed. COMPARISON: No prior study is available for comparison. MR brain dated 12/31/2019 was reviewed. FINDINGS: There is overall mildly decreased dopaminergic activity in the right cerebral hemisphere compared to the left. However, comma-shaped uptake is preserved within the cerebral dopaminergic pathway bilaterally. Uptake in the striatum appears as follows: Left caudate nucleus head: Normal Right caudate nucleus head: Mildly decreased Left putamen: Normal Right putamen: Mildly decreased Procedure Note Rey Serra MD - 12/31/2019 PROCEDURE: Dopamine transporter (DaTscan) brain SPECT/CT HISTORY: 79-year-old female with 4 year history of leaning forward and shuffling with walking, bradykinesia and some urinary urgency and stress incontinence. No cognitive decline but has personality changes. MR brain dated 12/31/2019 showed hydrocephalus. Patient's height 168 cm; weight 130 lb. TECHNIQUE: 45 minutes after oral administration of SSKI for thyroid blockade, 5.5mCi I-123 Ioflupane was administered intravenously in the left forearm.Three hours later, tomographic whole brain SPECT/CT imaging was performed. COMPARISON: No prior study is available for comparison. MR brain dated 12/31/2019 was reviewed. FINDINGS: There is overall mildly decreased dopaminergic activity in the right cerebral hemisphere compared to the left. However, comma-shaped uptakeis preserved within the cerebral dopaminergic pathway bilaterally. Uptake in the striatum appears as follows: Left caudate nucleus head: Normal Right caudate nucleus head: Mildly decreased Left putamen: Normal Right putamen: Mildly decreased IMPRESSION: Overall mildly decreased dopaminergic activity in the right cerebral hemisphere, but the comma-shaped activity is preserved bilaterally. Findings are probably not supportive of parkinsonian syndromes. Dictated by Tila Cristobal MD (residential mental health worker). This report was approved by Tila Cristobal on 12/31/2019 4:02 PM . I, Dr. REY SERRA M.D. have personally reviewed and interpreted this examination/study. This report was electronically signed by REY SERRA M.D. on 12/31/2019 4:32 PM . Artis Preciado MD NM ORDERABLES * MRI BRAIN WO CONTRAST (12/31/2019 11:48 AM CDT) Anatomical Region Laterality Modality Head Magnetic Resonan ce 12/31/2019 12:1 7 PM CDT Impressions 12/31/2019 4:33 PM CDT IMPRESSION: 1.No evidence of acute intracranial findings. 2.Generalized volume loss and nonspecific white matter changes, likely vascular related. 3.Ventricular prominence is disproportionate to sulcal dilation concerning for normal pressure hydrocephalus. This report was electronically signed by MILTON HARRIS on 12/31/2019 4:33 PM . Narrative 12/31/2019 4:33 PM CDT MRI BRAIN WO CONTRAST DATE: 12/31/2019 11:49 AM EXAMINATION: Magnetic resonance imaging (MRI) of the brain without contrast HISTORY: G91.2: NPH (normal pressure hydrocephalus) TECHNIQUE: MRI of the brain was performed without contrast according to a movement disorder protocol. COMPARISON: Head CT from 12/02/2018 FINDINGS: No evidence of acute or chronic hemorrhage is identified. No evidence of acute cerebral infarction is seen. There is mild cerebral and cerebellar volume loss with associated ex vacuo ventricular dilatation. Ventricular prominence is disproportionate to sulcal dilation, concerning for normal pressure hydrocephalus. No mass effect or midline shift is seen. Periventricular, subcortical, and pontine white matter FLAIR hyperintensities likely represent sequelae of chronic small vessel ischemic disease. The corpus callosum is arched. The sella appear grossly unremarkable. The posterior fossa, brainstem, and craniocervical junction appear normal. Other than mild paranasal sinus disease, the visualized portions of the orbits, paranasal sinuses, and mastoids appear normal. Normal flow voids are demonstrated in the carotid arteries and basilar artery. The calvarium and visualized cervical spine appear normal. Procedure Note Milton Harris MD - 12/31/2019 MRI BRAIN WO CONTRAST DATE: 12/31/2019 11:49 AM EXAMINATION: Magnetic resonance imaging (MRI) of the brain withoutcontrast HISTORY: G91.2: NPH (normal pressure hydrocephalus) TECHNIQUE: MRI of the brain was performed without contrast according toa movement disorder protocol. COMPARISON: Head CT from 12/02/2018 FINDINGS: No evidence of acute or chronic hemorrhage is identified. No evidence of acute cerebral infarction is seen. There is mild cerebral and cerebellar volume loss with associated ex vacuo ventricular dilatation. Ventricular prominence is disproportionate to sulcal dilation, concerning for normal pressure hydrocephalus. No mass effect or midline shift is seen. Periventricular, subcortical, and pontine white matter FLAIR hyperintensities likely represent sequelae of chronic small vessel ischemic disease. The corpus callosum is arched. The sella appeargrossly unremarkable. The posterior fossa, brainstem, and craniocervicaljunction appear normal. Other than mild paranasal sinus disease, the visualized portions of the orbits, paranasal sinuses, and mastoids appear normal. Normal flow voids are demonstrated in the carotid arteries and basilar artery. Thecalvarium and visualized cervical spine appear normal. IMPRESSION: 1.No evidence of acute intracranial findings. 2.Generalized volume loss and nonspecific white matter changes, likely vascular related. 3.Ventricular prominence is disproportionate to sulcal dilationconcerning for normal pressure hydrocephalus. This report was electronically signed by MILTON HARRIS on12/31/2019 4:33 PM . Artis Preciado MD MR ORDERABLES * XR FOOT RIGHT 3VW OR MORE (09/13/2018 2:42 AM CDT) Anatomical Region Laterality Modality Ankle / Foot Radiographic Ele ging 09/13/2018 3:00 AM CDT Impressions 09/13/2018 10:15 AM CDT Impression: No acute fracture or dislocation is identified. Mild midfoot joint space narrowing is present. Bone density and texture are normal. Soft tissues are normal. Plantar heel spur. Enthesopathy at insertion of the Achilles tendon. This report has been dictated by Flip Vanegas M.D. (Resident). I, Dr. GENNA BRUCE have personally reviewed and interpreted this examination/study. This report was electronically signed by GENNA BRUCE on 09/13/2018 10:15 AM . Narrative 09/13/2018 10:15 AM CDT Exam: XR FOOT RIGHT 3VW OR MORE. Date: 09/13/2018 2:42 AM. History: pain. Comparison: No prior is available for comparison. Procedure Note Genna Bruce MD - 09/13/2018 Exam: XR FOOT RIGHT 3VW OR MORE. Date: 09/13/2018 2:42 AM. History: pain. Comparison: No prior is available for comparison. Impression: No acute fracture or dislocation is identified. Mild midfoot joint space narrowing is present. Bone density and texture are normal. Soft tissues are normal. Plantar heel spur. Enthesopathy at insertion of the Achilles tendon. This report has been dictated by Flip Vanegas M.D. (Resident). I, Dr. GENNA BRUCE have personally reviewed and interpreted this examination/study. This report was electronically signed by GENNA BRUCE on 09/13/2018 10:15 AM . Dany A Dumontier DO DIAGNOSTIC IMAGIN G ORDERABLES * (ABNORMAL) URINALYSIS W/MICROSCOPIC NO CULTURE (09/13/2018 2:35 AM CDT) Color UA Michelle(A) Straw, Yellow, Colorless 09/13/2018 2:52 AM [facility] Clarity UA Clear Clear, Slt Cloudy 09/13/2018 2:52 AM [facility] Specific [place] UA 1.021 1.005 - 1.030 09/13/2018 2:52 AM [facility] pH UA 8.0 5.0 - 8.0 pH 09/13/2018 2:52 AM [facility] Protein UA Negative Negative mg/dL 09/13/2018 2:52 AM [facility] Glucose UA Negative Negative mg/dL 09/13/2018 2:52 AM [facility] Ketone UA Negative Negative mg/dL 09/13/2018 2:52 AM [facility] Bilirubin UA Negative Negative mg/dL 09/13/2018 2:52 AM [facility] Blood UA Negative Negative 09/13/2018 2:52 AM [facility] Nitrite UA Positive(A) Negative 09/13/2018 2:52 AM [facility] Leukocyte Esterase Negative Negative 09/13/2018 2:52 AM [facility] Urobilinogen UA 4.0(A) Negative mg/dL 09/13/2018 2:52 AM [facility] RBC UA 6-10(A) None Seen, 0-2, 3-5 /HPF 09/13/2018 2:52 AM CDT [facility] WBC UA 0-5 None Seen, 0-5 /HPF 09/13/2018 2:52 AM CDT [facility] Squamous Epithelial Cells UA 0-2 None Seen, 0-2 /HPF 09/13/2018 2:52 AM CDT [facility] Urine URINE SPECIMEN OBTAINED BY CLEAN CATCH PROCEDURE / Unknown Collection / Unknown 09/13/2018 2:35 AM CDT 09/13/2018 2:40 AM CDT Dany Mcgill Dumontier DO LAB - URINALYSIS ORDERABLES [facility] [address] [phone] * CULTURE URINE (09/13/2018 2:35 AM CDT) Culture Urine No growth (<100 CFU/mL) MEGAN 09/14/2018 6:52 AM CDT [facility] Urine URINE SPECIMEN OBTAINED BY CLEAN CATCH PROCEDURE / Unknown Collection / Unknown 09/13/2018 2:35 AM CDT 09/13/2018 2:40 AM CDT Dany Mccannontier DO LAB - MICROBIOLOG Y ORDERABLES [facility] [address] [phone] * (ABNORMAL) CBC W AUTO DIFFERENTIAL (09/13/2018 2:10 AM CDT) WBC 10.1 3.5 - 10.5 10 3/uL 09/13/2018 2:16 AM CDT [facility] RBC 3.93 3.90 - 5.00 10 6/uL 09/13/2018 2:16 AM CDT [facility] Hemoglobin 10.9(L) 12.0 - 15.5 g/dL 09/13/2018 2:16 AM CDT [facility] Hematocrit 33.4(L) 35.0 - 45.0 % 09/13/2018 2:16 AM [facility] MCV 85.0 81.0 - 97.0 fL 09/13/2018 2:16 AM [facility] MCH 27.7(L) 28.0 - 34.0 pg 09/13/2018 2:16 AM [facility] MCHC 32.6 32.0 - 36.0 g/dL 09/13/2018 2:16 AM [facility] Platelet Count 295 150 - 400 10 3/uL 09/13/2018 2:16 AM [facility] RDW-SD 40.0 36.0 - 50.0 fL 09/13/2018 2:16 AM [facility] RDW-CV 12.9 11.2 - 14.8 % 09/13/2018 2:16 AM [facility] MPV 10.1 9.3 - 12.8 fL 09/13/2018 2:16 AM [facility] nRBC Absolute 0.00 0 10 3/uL 09/13/2018 2:16 AM [facility] nRBC Auto 0.0 0 /100 WBC 09/13/2018 2:16 AM [facility] Neutrophils % 61.8 35.0 - 70.0 % 09/13/2018 2:16 AM [facility] Lymphocytes % 26.0 19.7 - 55.1 % 09/13/2018 2:16 AM [facility] Monocytes % 11.1 3.0 - 15.0 % 09/13/2018 2:16 AM [facility] Eosinophils % 0.5 0.0 - 6.0 % 09/13/2018 2:16 AM [facility] Basophil % 0.2 0.0 - 1.5 % 09/13/2018 2:16 AM [facility] Neutrophils Absolute 6.3 1.6 - 7.0 10 3/uL 09/13/2018 2:16 AM [facility] Lymphocyte Absolute 2.6 0.8 - 2.9 10 3/uL 09/13/2018 2:16 AM [facility] Monocytes Absolute 1.13(H) 0.14 - 0.66 10 3/uL 09/13/2018 2:16 AM [facility] Eosinophils Absolute 0.05 0.00 - 0.45 10 3/uL 09/13/2018 2:16 AM [facility] Basophils Absolute 0.02 0.00 - 0.06 10 3/uL 09/13/2018 2:16 AM [facility] Immature Granulocytes % 0.4 0.0 - 1.0 % 09/13/2018 2:16 AM [facility] Blood BLOOD SPECIMEN / Unknown Venipuncture / Unknown 09/13/2018 2:10 AM CDT 09/13/2018 2:13 AM CDT Dany Britton DO LAB - HEMATOLOGY ORDERABLES [facility] [address] [phone] * (ABNORMAL) COMPREHENSIVE METABOLIC PANEL (09/13/2018 2:10 AM CDT) BUN 8 7 - 26 mg/dL 09/13/2018 2:32 AM [facility] Creatinine 0.6 0.6 - 1.2 mg/dL 09/13/2018 2:32 AM [facility] Sodium 140 136 - 145 mmol/L 09/13/2018 2:32 AM [facility] Potassium 3.1(L) 3.5 - 4.5 mmol/L 09/13/2018 2:32 AM [facility] Chloride 100 98 - 107 mmol/L 09/13/2018 2:32 AM [facility] CO2 29 22 - 29 mmol/L 09/13/2018 2:32 AM [facility] Glucose 132(H) 70 - 115 mg/dL 09/13/2018 2:32 AM [facility] Calcium 10.1 8.4 - 10.2 mg/dL 09/13/2018 2:32 AM [facility] Protein Total 6.4 6.0 - 8.3 g/dL 09/13/2018 2:32 AM [facility] Albumin 3.0(L) 3.4 - 5.0 g/dL 09/13/2018 2:32 AM [facility] Bilirubin Total 0.6 0.2 - 1.2 mg/dL 09/13/2018 2:32 AM [facility] Alkaline Phosphatase 455(H) 40 - 150 Units/L 09/13/2018 2:32 AM [facility] ALT 143(H) 0 - 55 Units/L 09/13/2018 2:32 AM [facility] AST 94(H) 5 - 34 Units/L 09/13/2018 2:32 AM [facility] Anion Gap 14 8 - 18 09/13/2018 2:32 AM [facility] BUN/Creatinine Ratio 13 7 - 23 09/13/2018 2:32 AM [facility] Osmolality Calculated 290 270 - 300 mOsm/kg 09/13/2018 2:32 AM [facility] Albumin/Globulin Ratio 0.9(L) 1.1 - 2.3 09/13/2018 2:32 AM [facility] eGFR >60 >60 mL/min/1.7 3 m2 09/13/2018 2:32 AM [facility] Blood BLOOD SPECIMEN / Unknown Venipuncture / Unknown 09/13/2018 2:10 AM CDT 09/13/2018 2:13 AM CDT Dany A Dumontier DO LAB - CHEMISTRY O RDERABLES [address] [phone] * LIPASE BLOOD (09/13/2018 2:10 AM CDT) Lipase 34 8 - 78 Units/L 09/13/2018 2:30 AM CDT [facility] Blood BLOOD SPECIMEN / Unknown Venipuncture / Unknown 09/13/2018 2:10 AM CDT 09/13/2018 2:13 AM CDT Dany Mcgill Dumontier DO LAB - CHEMISTRY O RDERABLES [address] [phone] * TSH (09/13/2018 2:10 AM CDT) TSH 4.659 0.350 - 4.940 uIU/mL 09/13/2018 2:51 AM CDT [facility] Blood BLOOD SPECIMEN / Unknown Venipuncture / Unknown 09/13/2018 2:10 AM CDT 09/13/2018 2:13 AM CDT Dany Mcgill Williamsier DO LAB - CHEMISTRY O RDERABLES [address] [phone] * T4 FREE (09/13/2018 2:10 AM CDT) T4 Free 1.0 0.7 - 1.5 ng/dL 09/13/2018 2:52 AM CDT [facility] Blood BLOOD SPECIMEN / Unknown Venipuncture / Unknown 09/13/2018 2:10 AM CDT 09/13/2018 2:13 AM CDT Dany Nano Tobi DO LAB - CHEMISTRY O RDERABLES [address] [phone] Care Teams Php Programmer Relationship Specialty Start Date End Date Mal Jin DO PCP - General 06/23/19
--- OUTSIDE RECORDS SUMMARY | 2024-08-03 14:43 | XMS_ITS | Continuity of Care Document ---
Author Organization [facility] Address [address] [place] [address] Phone Care Team Providers Care Capture Manager Name Role Phone Rakesh Mccollum DO Unavailable Unavailable Advance Directives Directive Yes / No Effective Date File Name No Information Encounters Encounter Description Practice Location Reason(s) For Visit Diagnoses Date Provider Providers [facility] [address], [place], [place], [id number], [place] tel:[phone] [facility] No Information Veda Flores. [address] [place], [address], [place]. tel: [phone] Family History Family Member Type Diagnosis Age [...]
--- OUTSIDE RECORDS SUMMARY | 2024-08-03 14:43 | XMS_ITS | Encounter Summary ---
Author Organization [facility] Address [address] [place] [address] Care Team Providers Care Manager Land Name Role Phone Mal Jin Primary Care Provider Encounter Details Date Type Department Care Team (Late st Contact Info) Description 01/21/2023 Lab Requisition [facility] - DermPath Lab [address] [facility], [place] [address] Sebastian Garcia MD [facility] DERMATOLOGY [address] [place] [phone] Neoplasm of uncertain behavior of skin [...] Priority Date/Time Associated Diagnosis Comments DERMATOPATHOLOGY Routine 01/21/2023 3:33 AM CDT Neoplasm of uncertain behavior of skin documented in this encounter Results * DERMATOPATHOLOGY (01/21/2023 3:33 AM CDT) Case Report Dermatopathology Report Case: [id number] Authorizing Provider: Sebastian Garcia MD Collected: 01/21/2023 03:33 AM Ordering Location: [facility] DermPath Lab Received: 01/22/2023 11:51 AM Pathologist: Lillie Antoine MD Specimens: A) - Skin, left upper arm B) - Skin, left posterior shoulder B C) - Skin, left posteriior shoulder C D) - Skin, left mid upper back E) - Skin, right anterior shoulder 3 2:59 PM T DERMATOPATHOLOGY LABORATORY Final Diagnosis Specimen A. 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 SKIN, left posterior shoulder B: BASAL CELL CARCINOMA, NODULAR TYPE (C44.519) Specimen C. SKIN, left posteriior shoulder C: SQUAMOUS CELL CARCINOMA IN SITU, PRESENT AT THE BASE OF THE SPECIMEN (D04.5) (see microscopic description and comment) Specimen D. SKIN, left mid upper back: BASAL CELL CARCINOMA, SUPERFICIAL MULTIFOCAL (C44.519) Specimen E. SKIN, right anterior shoulder: BASAL CELL CARCINOMA, SUPERFICIAL MULTIFOCAL (C44.519) 3 2:59 PM T DERMATOPATHOLOGY LABORATORY Clinical History A-B: Basal cell carcinoma C: Squamous cell carcinoma D: Basal cell carcinoma E: Basal cell carcinoma 3 2:59 PM CDT DERMATOPATHOLOGY LABORATORY Gross Description Specimen A: Received is one formalin filled container labeled with the patient's name and designated left upper arm. The specimen consists of a shave biopsy measuring 12x7x1 mm. Jar 0. Specimen B: Received is one formalin filled container labeled with the patient's name and designated left posterior shoulder B. The specimen consists of a shave biopsy measuring 11x7x1 mm. Jar 0. Specimen C: Received is one formalin filled container labeled with the patient's name and designated left posteriior shoulder C. The specimen consists of a shave biopsy measuring 8x8x2 mm. Jar 0. Specimen D: Received is one formalin filled container labeled with the patient's name and designated left mid upper back. The specimen consists of a shave biopsy measuring 10x8x1 mm. Jar 0. Specimen E: Received is one formalin filled container labeled with the patient's name and designated right anterior shoulder. The specimen consists of a shave biopsy measuring 8x8x1 mm. Jar 0. 3 2:59 PM T DERMATOPATHOLOGY LABORATORY Microscopic Description Specimen A. SKIN, left upper arm: The epidermis shows parakeratosis, full thickness disorderly maturation of keratinocytes, mitoses at different levels, and dyskeratotic cells. Specimen B. SKIN, left posterior shoulder B: Within the dermis there are aggregates of basaloid cells with a high nuclear to cytoplasmic ratio and peripheral palisading. Specimen C. SKIN, left posteriior shoulder C: The epidermis shows parakeratosis, full thickness disorderly maturation of keratinocytes, mitoses at different levels, and dyskeratotic cells. Focal endophytic features are present. The lesion extends to the base of the biopsy. COMMENT: An invasive squamous cell carcinoma cannot be ruled out. Specimen D. SKIN, left mid upper back: Attached to the undersurface of the epidermis, there are small aggregates of basaloid cells with a high nuclear to cytoplasmic ratio and peripheral palisading. Specimen E. SKIN, right anterior shoulder: Attached to the undersurface of the epidermis, there are small aggregates of basaloid cells with a high nuclear to cytoplasmic ratio and peripheral palisading. 3 2:59 PM T DERMATOPATHOLOGY LABORATORY Disclaimer An external and internal positive and negative controls are appropriate for the histochemical, immunohistochemical and immunofluorescence stain(s) in this case (if any), except where stated explicitly. The performance characteristics of the stain(s) cited in this report were developed and its performance characteristic determined by the Dermatopathology Laboratory at [facility], directed by Dr. Tatiana Bowers. These tests need not be, and therefore are not, approved by the [place] Food and Drug Administration. The tests are used for clinical purposes. Billing Codes Specimen Charges Stain Charges 75763 [id number] 72259 70095 90790 1 1 1 1 1 3 2:59 PM CDT DERMATOPATHOLOGY LABORATORY Embedded Images 3 2:59 PM CDT DERMATOPATHOLOGY LABORATORY Pathology/Cytology TISSUE SPECIMEN FROM SKIN / Unknown 01/21/2023 3:33 AM CDT 01/22/2023 11:51 AM CDT Miscellaneous samples (specimen) TISSUE SPECIMEN FROM SKIN / Unknown 01/21/2023 3:33 AM CDT 01/22/2023 11:51 AM CDT Miscellaneous samples (specimen) TISSUE SPECIMEN FROM SKIN / Unknown 01/21/2023 3:33 AM CDT 01/22/2023 11:51 AM CDT Miscellaneous samples (specimen) TISSUE SPECIMEN FROM SKIN / Unknown 01/21/2023 3:33 AM CDT 01/22/2023 11:51 AM CDT Miscellaneous samples (specimen) TISSUE SPECIMEN FROM SKIN / Unknown 01/21/2023 3:33 AM CDT 01/22/2023 11:51 AM CDT Sebastian Garcia MD LAB - PATHOLOGY/CYTO LOGY ORDERABLES DERMATOPATHOLOGY LABORATORY [facility] - Department of Dermatology [facility] Medicine [address] [place] [address], [address] [phone] documented in this encounter Visit Diagnoses Diagnosis Neoplasm of uncertain behavior of skin documented in this encounter Care Teams Manager Land Relationship Specialty Start Date End Date Mal Jin DO PCP - General 06/23/19 documented as of this encounter
--- OUTSIDE RECORDS SUMMARY | 2024-08-03 14:43 | XMS_ITS | Referral Summary ---
Author Organization [facility] Address [address] [place] [address] Care Team Providers Care English Instructor Name Role Phone Tim Moulton MD Primary [...] mcg tablet Take 75 mcg by mouth plaster machine tender before breakfast 1 Active lisinopriL (PRINIVIL,ZESTRI L) [...] 04/19/2021 Assessment & Plan (04/20/2021 7:48 PM CAFETERIA ATTENDANT): Started on Rocephin in ER, will cont along with IVF, improving, but WBC still elevated, cont IV antibiotics Will need f/u with urology after treatment for stent removal Weakness 04/19/2021 Assessment & Plan (04/19/2021 8:35 AM CAFETERIA ATTENDANT): PT/OT consulted, along with IVF Occipital scalp laceration 04/19/2021 Assessment & Plan (04/19/2021 8:35 AM CAFETERIA ATTENDANT): S/p repair with mic in ER Primary hypertension 04/19/2021 Assessment & Plan (04/19/2021 8:36 AM CAFETERIA ATTENDANT): Resume home meds once reconciled Acquired hypothyroidism 04/19/2021 Assessment & Plan (04/19/2021 8:36 AM CAFETERIA ATTENDANT): Can resume synthroid once reconciled Type 2 diabetes mellitus 04/19/2021 Assessment & Plan (04/19/2021 8:42 AM CAFETERIA ATTENDANT): Can resume home meds once reconciled Ataxic gait 01/22/2013 Head revolving around 01/13/2013 Hydronephrosis Ureteral stent retained Immunizations Immunization Administration Dates Next Due Tdap 04/18/2021 Social History Tobacco Use Types Packs/Day Years [...] on file Legal Sex Female 9:36 AM CAFETERIA ATTENDANT Gender Identity Not on file Sexual Orientation Not on file Last Filed Vital Signs Vital Sign Reading Time Taken Comments Blood Pressure 157/72 04/22/2021 11:37 AM CAFETERIA ATTENDANT Pulse 63 04/22/2021 11:37 AM CAFETERIA ATTENDANT Temperature 36.7 C (98 F) 04/22/2021 11:37 AM CAFETERIA ATTENDANT Respiratory Rate 18 04/22/2021 11:37 AM CAFETERIA ATTENDANT Oxygen Saturation 94% 04/22/2021 11:37 AM CAFETERIA ATTENDANT Inhaled Oxygen Concentration - - Weight 60.3 kg (133 lb) 04/19/2021 3:09 AM CAFETERIA ATTENDANT Height 167.6 cm (5' 6 ) 04/19/2021 3:09 AM CAFETERIA ATTENDANT Body Mass Index 21.47 04/19/2021 3:09 AM CAFETERIA ATTENDANT Plan of Treatment Not on file Insurance [place] [address] [place] [id number] HEALTHCARE Advance Directives For more information, please contact: [phone] * Full Code (Latest Code Status on File) Date Activated Date Inactivated Comments 04/19/2021 8:33 AM 04/22/2021 7:51 PM Care Teams English Instructor Relationship Specialty Start Date End Date Tim Moulton MD [address] [place] [address] PCP - General 07/04/20
--- OUTSIDE RECORDS SUMMARY | 2024-08-03 14:43 | XMS_ITS | Encounter Summary ---
Author Organization [facility] Care Team Providers Care Walnut Dehydrator Operator Name Role Phone Mal Jin DO Primary Care Provider Tim Moulton MD Primary Care Provider + Encounter Details Date Type Department Care Team (Latest Contact Info) Description 03/03/2018 Orders Only [facility] CLINCONV Provider, MD Moses [address] [place] [id number] Social History Tobacco Use Types Packs/Day Years Used Date Smoking Tobacco: Never Assessed Comments Unknown Sex and Gender Information Value Date Recorded Sex Assigned at Not on file Legal Sex Female 9:36 AM BLIND LACER Gender Identity Not on file Sexual Orientation Not on file documented as of this encounter Plan of Treatment Not on file documented as of this encounter Procedures Procedure Name Priority Date/Time Associated Diagnosis Comments PROCEDURE - RESULT 02/20/2018 12 :00 AM CDT documented in this encounter Results * PROCEDURE - RESULT (02/20/2018 12:00 AM CDT) Narrative 02/20/2018 12:00 AM CDT Ordered by an unspecified provider. us Historical Provider Final Res ult documented in this encounter Visit Diagnoses Not on filedocumented in this encounter Care Teams Walnut Dehydrator Operator Relationship Specialty Start Date End Date Mal Jin [place] [place] [address] PCP - General Family Medicine 12/17/17 07/03/20 Tim Moulton MD [address] [place] [address] PCP - General 07/04/20 documented as of this encounter
--- OUTSIDE RECORDS SUMMARY | 2024-08-03 14:43 | XMS_ITS | Encounter Summary ---
Author Organization [facility] Address Formerly [facility] [place] [address] Care Team Providers Care Woodworking Craftsman Name Role Phone Tim Moulton MD Primary Care Provider [phone] Bety Swift RN Unavailable Unavailable Mikala Pillai RN Unavailable Bharat Gaytan DO Primary Care Provider [phone] Della Marley RN Unavailable Ricardo Wiseman DO Primary Care Provider None, Provider Primary Care Provider Unavaila Jeovany Ricks MD Primary Care Provider [phone] Reason for Referral * Home Health Care (Urgent) - Closed Specialty Diagnoses / Procedures Referred By Joselito dowell Referred To Contact Home Health Services / [facility] Diagnoses Right hip pain Limited mobility Tim Moulton MD Phone: tel: fax: [facility] Home Care [facility] [address] [place] [address] Phone: tel: fax: Referral ID Status Reason Start Date Expiration Date V isits Requested Visits Authorized [id number] Closed Home Health Services 07/27/2020 08/26/2021 48 48 L TACKER * Imaging (Routine) - Closed Specialty Diagnoses / Procedures Referred By Joselito dowell Referred To Contact RADIOLOGY Diagnoses Right hip pain Limited mobility Procedures MRI HIP RT WO CON Tim Moulton MD Phone: tel: fax: Referral ID Status Reason Start Date Expiration Date Visits Re quested Visits Authorized [id number] Closed 08/03/2020 11/01/2020 2 2 L TACKER Encounter Details Date Type Department Care Team (Late st Contact Info) Description 07/27/2020 RunRev Message Enc [facility] Family Medicine - [address] [address] Tim Moulton MD [address] [address] RE: Question Social History Tobacco Use Types Packs/Day Years Used Date Smoking Tobacco: Never Smokeless Tobacco: Never Alcohol Use Standard Drinks/Week Comments No 0 (1 standard drink = 0.6 oz pur e alcohol) PHQ-2 Answer Date Recorded PHQ-2 Score - If the patient scores above 3, please move on to questions 3-9 0 12/30/2019 Comments No Sex and Gender Information Value Date Recorded Sex Assigned at Not on file Legal Sex Female 10:41 PM CDT Gender Identity Not on file Sexual Orientation Not on file COVID-19 Exposure Response Date Recorded In the last month, have you been in contact with someone who was confirmed or suspected to have Coronavirus / COVID-19? No / Unsure 07/25/2020 12:50 PM LABEL TACKER documented as of this encounter Progress Notes * Tim Moulton MD - 07/27/2020 2:[address] orders for R hip and pelvis x-ray along with MRI R hip without contrast and home health order for PT due to R hip pain? Thanks. L TACKER * Nevin Jiménez MA - 07/27/2020 2:46 PM CST . L TACKER documented in this encounter Plan of Treatment Scheduled Referrals Name Type Priority Associated Diagnoses Orde r Schedule Abbreviated Ambulatory Referral to Home Health Referral Routine Right hip pain Limited mobility Ordered: 07/27/2020 documented as of this encounter Results * XR PELVIS AP+RT HIP 2V (02/20/2021 2:46 PM CDT) Anatomical Region Laterality Modality Pelvis, Hip Radiographic Ele ging 02/20/2021 2:50 PM CDT Impressions 02/20/2021 2:52 PM CDT IMPRESSION: 1. Osteoarthritis, no clear evidence of fracture. If there is clinical concern for occult hip injury, consider MRI. Referred By: Interpreted By: Loy Rain MD, 02/20/2021 2:50 PM Narrative 02/20/2021 2:52 PM CDT EXAMINATION: Pelvis and right hip EXAM DATE: 02/20/2021 2:11 PM REASON FOR EXAM: chronic right hip pain COMPARISON: None TECHNIQUE: Single view pelvis, 2 views right hip FINDINGS: Pelvis: Femoral heads rest within the acetabulum. Moderate bilateral hip and sacroiliac osteoarthritis. Anterior and posterior columns of acetabulum are intact. Right hip: Osteoarthritis. Hypertrophic bone of the acetabulum, possibly chronic labral pathology. This is grossly similar in appearance to the CT from 11/26/2020. No clear evidence of fracture. Procedure Note Loy Rain MD - 02/20/2021 EXAMINATION: Pelvis and right hip EXAM DATE: 02/20/2021 2:11 PM REASON FOR EXAM: chronic right hip pain COMPARISON: None TECHNIQUE: Single view pelvis, 2 views right hip FINDINGS: Pelvis: Femoral heads rest within the acetabulum. Moderate bilateral hip and sacroiliac osteoarthritis. Anterior and posterior columns of acetabulum are intact. Right hip: Osteoarthritis. Hypertrophic bone of the acetabulum, possiblychronic labral pathology. This is grossly similar in appearance to the CTfrom 11/26/2020. No clear evidence of fracture. IMPRESSION: 1. Osteoarthritis, no clear evidence of fracture. If there is clinicalconcern for occult hip injury, consider MRI. Referred By: Interpreted By: Loy Rain MD, 02/20/2021 2:50 PM us Tim Moulton MD GENERAL IMAGING Final Result * MRI HIP RT WO CON (08/03/2020 9:53 AM LABEL TACKER) Anatomical Region Laterality Modality Hip Magnetic Resonan ce 08/03/2020 10:0 9 AM LABEL TACKER Impressions 08/03/2020 10:22 AM LABEL TACKER IMPRESSION:===== 1. No acute findings. 2. Right hip moderately severe, moderate osteoarthritis with related findings as above. 3. Equivocal trace right hip effusion. 4. Possible right acetabular labral tear, markedly limited assessment on this study. Right hip MR arthrogram assessment can be considered for confirmation as clinically directed. 5. Colonic diverticulosis. Referred By: TIM MOULTON Interpreted By: Lazaro Chester MD, 08/03/2020 10:09 AM Narrative 08/03/2020 10:22 AM LABEL TACKER EXAMINATION: MRI right hip without contrast. EXAM DATE/TIME: 08/03/2020 9:19 AM REASON FOR EXAM: 8-year-old female with chronic right hip pain and limited mobility COMPARISON: Right hip radiographs 11/28/2007 TECHNIQUE: Multiplanar multisequence, MR imaging performed. Axial and coronal T1-weighted and STIR images of the pelvis and both hips acquired; targeted small field of view axial oblique, sagittal proton density fat sat and coronal oblique T2 fat sat images of the right hip also acquired. . FINDINGS: There may be an asymmetric trace right hip effusion. No significant left effusion. There is no trochanteric or iliopsoas bursitis. Bilateral gluteus muscle attachments are within normal limits including the hamstring origin conjoined tendons. There is no tendinopathy, muscle edema or atrophy. There is a bilateral hip osteoarthritis. This may be minimally asymmetrically more prominent on the right, overall moderately severe and moderate in the left hip. There is bilateral femoral head neck junction circumferential spurring/osteophytosis. There is a joint space narrowing most prominent superiorly and axially. There is a right superior acetabular 1.1 cm mass subchondral/subcortical geode. There is no fracture seen. There is a normal marrow signal of the bilateral proximal femora and pelvis. Findings of stress related injury. There is a mild pubosymphyseal arthritis. Limited assessment of the labrum. There may be a superior and anterior right acetabular labral tear. Intrapelvic views show extensive colonic diverticulosis. Procedure Note Lazaro Chester MD - 08/03/2020 EXAMINATION: MRI right hip without contrast. EXAM DATE/TIME: 08/03/2020 9:19 AM REASON FOR EXAM: 8-year-old female with chronic right hip pain andlimited mobility COMPARISON: Right hip radiographs 11/28/2007 TECHNIQUE: Multiplanar multisequence, MR imaging performed. Axial and coronal T1-weighted and STIR images of the pelvis and both hipsacquired; targeted small field of view axial oblique, sagittal proton density fatsat and coronal oblique T2 fat sat images of the right hip also acquired.. FINDINGS: There may be an asymmetric trace right hip effusion. No significant left effusion. There is no trochanteric or iliopsoas bursitis. Bilateral gluteus muscle attachments are within normal limits includingthe hamstring origin conjoined tendons. There is no tendinopathy, muscleedema or atrophy. There is a bilateral hip osteoarthritis. This may be minimally asymmetrically more prominent on the right, overall moderately severeand moderate in the left hip. There is bilateral femoral head neck junction circumferential spurring/osteophytosis. There is a joint space narrowing most prominent superiorly and axially. There is a right superioracetabular 1.1 cm mass subchondral/subcortical geode. There is no fracture seen. There is a normal marrow signal of thebilateral proximal femora and pelvis. Findings of stress related injury. There is a mild pubosymphyseal arthritis. Limited assessment of the labrum. There may be a superior and anterior right acetabular labral tear. Intrapelvic views show extensive colonic diverticulosis. IMPRESSION:===== 1. No acute findings. 2. Right hip moderately severe, moderate osteoarthritis with related findings as above. 3. Equivocal trace right hip effusion. 4. Possible right acetabular labral tear, markedly limited assessment on this study. Right hip MR arthrogram assessment can be considered for confirmation as clinically directed. 5. Colonic diverticulosis. Referred By: TIM MOULTON Interpreted By: Lazaro Chester MD, 08/03/2020 10:09 AM us Tim Moulton MD MRI Final Result documented in this encounter Visit Diagnoses Diagnosis Right hip pain- Primary Pain in joint, pelvic region and thigh Limited mobility Right hip pain Pain in joint, pelvic region and thigh Limited mobility documented in this encounter Additional Health Concerns Infection Onset Date Last Indicated Resolved Time COVID-19 Rule Out 07/18/2021 07/18/2021 07/18/2021 12:13 PM LABEL TACKER Assessment Noted Time PHQ-9 Depression Total Score: 3 12/30/19 20 1:27 PM CDT documented as of this encounter Care Teams Woodworking Craftsman Relationship Specialty Start Date End Date Tim Moulton MD PCP - General FAMILY PRACTICE 09/22/19 11/22/21 Bharat Gaytan DO [address] [place] [address] PCP - General FAMILY PRACTICE 11/23/21 05/14/22 Ricardo [place] [place] [address] PCP - General FAMILY PRACTICE 05/21/22 03/04/23 None, MD Ronen PCP - General UNKNOWN PHYSICIAN SPECIALTY 06/11/23 09/09/23 Jeovany Zuniga MD [address] [place] [address] PCP - General FAMILY PRACTICE 09/10/23 Bety Swift entertainment musician (Ambulatory) REGISTERED NURSE 03/15/21 07/12/21 Mikala Pillai, RN [address] [place] [address] Pharmacy Clinical Coordinator (Ambulatory) REGISTERED NURSE 07/27/21 08/19/21 Della Marley, RN [address] [place] [address] Pharmacy Clinical Coordinator (Ambulatory) REGISTERED NURSE 12/31/21 02/26/22 documented as of this encounter
--- OUTSIDE RECORDS SUMMARY | 2024-08-03 14:43 | XMS_ITS | Encounter Summary ---
Author Organization [facility] Address [facility] [place] [address] Care Team Providers Care Manufacturing Production Technician Name Role Phone Mal Jin DO Primary Care Provider [phone] Tim Moulton MD Primary Care Provider [phone] Bety Swift RN Unavailable Unavailable Mikala Pillai RN Unavailable Bharat Gaytan DO Primary Care Provider [phone] Della Marley RN Unavailable Ricardo Wiseman DO Primary Care Provider None, Provider Primary Care Provider Unavaila Jeovany Ricks MD Primary Care Provider [phone] Encounter Details Date Type Department Care Team (Late st Contact Info) Description 01/20/2018 Abstract [facility] Family Medicine - [address] [address] Mal Jin DO [address] [place] [phone] Social History Tobacco Use Types Packs/Day Years Used Date Smoking Tobacco: Never Smokeless Tobacco: Never Alcohol Use Standard Drinks/Week Comments No 0 (1 standard drink = 0.6 oz pur e alcohol) Comments No Sex and Gender Information Value [...] Rule Out 07/18/2021 07/18/2021 07/18/2021 12:13 PM PROFESSOR OF KINESIOLOGY documented as of this encounter Care Teams Manufacturing Production Technician Relationship Specialty Start Date End Date Mal Jin DO PCP - General FAMILY PRACTICE 09/20/17 09/21/19 Tim Moulton MD PCP - General FAMILY PRACTICE 09/22/19 11/22/21 Bharat Gaytan DO [address] [place] [address] PCP - General FAMILY PRACTICE 11/23/21 05/14/22 Ricardo [place] [address] PCP - General FAMILY PRACTICE 05/21/22 03/04/23 None, MD Ronen PCP - General UNKNOWN PHYSICIAN SPECIALTY 06/11/23 09/09/23 Jeovany Zuniga MD [address] [address] PCP - General FAMILY PRACTICE 09/10/23 Bety Swift hotel or motel manager (Ambulatory) REGISTERED NURSE 03/15/21 07/12/21 Mikala Pillai, JAMEL [address] [place], [place] [id number] Manager Community (Ambulatory) REGISTERED NURSE 07/27/21 08/19/21 Della Marley, RN [address] [place] [address] Manager Community (Ambulatory) REGISTERED NURSE 12/31/21 02/26/22 documented as of this encounter
== END 2024-08-03 13:14 | disposition home or self-care (01) ==
PROVIDERS: PCP Family Medicine; Visit Provider Physician Assistant Medical
DX: M19.011 Primary osteoarthritis, right shoulder (principal)
CPT/HCPCS: 73030

== ENCOUNTER 2024-12-12 18:12 | Emergency (ER) | payer OTHER, SELFPAY ==
--- NOTE | ~2024-12-12 | XR_ITS ---
EXAM: XR hand RT min 3V, XR wrist RT min 3V DATE: 12/12/2024 18:39 HISTORY: pain with trauma . COMPARISON: None available. FINDINGS: Osteopenia. No fracture or dislocation. No lytic or blastic lesion. Moderate scattered art hritic changes with marked chondrocalcinosis. Ulnar styloid erosion as can be seen with rheumatoid ar thritis and other arthropathies. Soft tissues within normal limits. IMPRESSION: No acute osseous finding in the right hand or wrist. Reviewed, dictated and finalized at location K. IMPRESSION: No acute osseous finding in the right hand or wrist.
--- OUTSIDE RECORDS SUMMARY | 2024-12-12 18:17 | XMS_ITS | Encounter Summary ---
Author Organization [facility] Care Team Providers Care Trademark Paralegal Name Role Phone Mal Jin DO Primary Care Provider Tim Moulton MD Primary Care Provider + Encounter Details Date Type Department Care Team (Latest Contact Info) Description 03/03/2018 Orders Only [facility]INCONV Provider, MD Moses [address] [place] [address] Social History Tobacco Use Types Packs/Day Years Used Date Smoking Tobacco: Never Assessed Comments Unknown Sex and Gender Information Value Date Recorded Sex Assigned at Not on file Legal Sex Female 9:36 AM BUYER LIAISON Gender Identity Not on file Sexual Orientation [...] on filedocumented in this encounter Care Teams Trademark Paralegal Relationship Specialty Start Date End Date Mal Jin [place] [place] [address] PCP - General Family Medicine 12/17/17 07/03/20 Tim Moulton MD [address] [place] [address] PCP - General 07/04/20 documented as of this encounter
--- OUTSIDE RECORDS SUMMARY | 2024-12-12 18:17 | XMS_ITS | Patient Health Record ---
Author Organization 1 OF Loren payan [facility] Address [address] [address] Care Team Providers Care Egg Factory Worker Name Role Phone Nadia HOLM, Jeovany Primary Care Provider Gavino Noble Unavailable Allergies Allergen (clinical drug ingredient) Drug/Non Drug Allergy documented on EMR Reaction Allergy Type Onset Date Status morphine Morphine Sulfate Unknown Drug Allergy Active Reason For Referral No Information Medications Medication SIG (Take, Route, Frequency, Duration) [...] Problem Status W/U Status Risk Notes Problem Generalized atherosclerosis (65530932) Generalized atherosclerosis (I70.91) Active confirmed Problem Type II diabetes mellitus without complication (997481750) Diabetes mellitus type 2, controlled, without complications (E11.9) Active confirmed Problem Type 2 diabetes mellitus with peripheral angiopathy (916110283) Type 2 diabetes mellitus with diabetic peripheral angiopathy without gangrene (E11.51) Active confirmed Problem Neurologic disorder associated with type II diabetes mellitus (863210853) 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.49) Active confirmed Problem Acquired hammer toe of right foot (2758669504547316) Hammer toe of right foot (M20.41) Active confirmed Problem Diabetic peripheral neuropathy (163602050) Diabetic peripheral neuropathy (E11.42) Active confirmed Problem Plantar fasciitis of right foot (67978457880690171 ) Plantar fasciitis of right foot (M72.2) Active confirmed Problem Intermittent claudication (47990419) Intermittent claudication (I73.9) Active confirmed Vital Signs Height 66 in 07/26/2024 Weight 120 lbs 07/26/2024 BMI 19.37 kg/m2 07/26/2024 Encounters Encounter Location Date Provider Diagnosis 1 OF Loren Mcmillan Stevie [facility] [address] [place] [address] 12/18/2023 Gavino Hubbard Onychogryphosis L60.2 and Diabetic peripheral neuropathy E11.42 1 OF Loren Hipolito Stevie [facility] [address] [place] [address] 04/29/2024 Gavino Hubbard Onychogryphosis L60.2 ; Diabetic peripheral neuropathy E11.42 ; Right foot pain M79.671 and Plantar fasciitis of right foot M72.2 1 OF Loren Hipolito Hubbard [facility] [address] [place] [address] 07/26/2024 Gavino Hubbard Onychogryphosis L60.2 and Diabetic peripheral neuropathy E11.42 1 OF Loren Mcmillan Stevie [facility] [address] [place] [address] 04/11/2024 Gavino Hubbard 1 OF Loren Mcmillan Ste[place] [address] [place] [address] 08/12/2024 Gavino Hubbard Assessments Encounter Date Diagnosis (ICD Code) Assessment Notes Treatment Notes Treatment Clinical Notes Section Notes 12/18/2023 Onychogryphosis (ICD-10 - L60.2) 04/29/2024 Onychogryphosis [...] area for new shoes YONATAN. F/u prn 02/26/2024 Other 07/12/2024 Other 10/08/2024 Other 12/18/2023 Other 04/29/2024 Other 07/26/2024 Other Plan Of Treatment Next Appt Details Provider Name:Gavino Hubbard, 12/24/2024 11:30:00 AM, [address], [place], [address], Insurance Providers Payer Name Payer Address Payer Phone Subscriber Number Group Number Insured Name Patient Relationship to Insured Coverage Start Date Coverage End Date [facility] [address] [address] [place] [address] [id number] [place] Self - patient is the insured Medical (General) History Medical History History ICD Code Diabetes Cancer, Thyroid Hypertension High Cholesterol Arthritis Surgical History Surgery Date(Month/Year) Thyroid Cancer Hysterectomy Knee Replacement, Left Shoulder, Left
--- OUTSIDE RECORDS SUMMARY | 2024-12-12 18:17 | XMS_ITS | Clinical Summary ---
Author Organization [facility] Address [address] [place] [place] [address] Care Team Providers Care Weight Reducing Technician Name Role Phone Unavailable Primary Care Provider Unavailabl e Medications potassium chloride (KLOR-CON M10) 10 mEq Extended Release tablet Take 1 tablet by mouth every day 90 Tablet 1 04/18/2024 Active Encounters Date Type Department Care Team Description 12/08/2024 External Device Data STL ABSTRACTION Provider, Abstract 12/08/2024 External Device Data ST[facility] ABSTRACTION Provider, Abstract 12/08/2024 External Device Data [facility] ABSTRACTION Provider, Abstract 12/07/2024 External Device Data [facility] ABSTRACTION Provider, Abstract 11/10/2024 External Device Data [facility] ABSTRACTION Provider, Abstract 11/09/2024 External Device Data [facility] ABSTRACTION Provider, Abstract 10/14/2024 External Device Data ST[facility] ABSTRACTION Provider, Abstract 10/13/2024 External Device Data STL ABSTRACTION Provider, Abstract 10/12/2024 External Device Data STL ABSTRACTION Provider, Abstract from Last 3 Months Social History Tobacco Use Types Packs/Day Years Used Date Smoking Tobacco: Never Assessed Comments Unknown Sex and Gender Information Value Date Recorded Sex Assigned at Not on file Legal 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
--- OUTSIDE RECORDS SUMMARY | 2024-12-12 18:17 | XMS_ITS | Referral Summary ---
Author Organization [facility] Address [address] [place] [address] Care Team Providers Care Gold Miner Blasting Name Role Phone Tim Moulton MD Primary [...] mcg tablet Take 75 mcg by mouth skull splitter before breakfast 1 Active lisinopriL (PRINIVIL,ZESTRI L) [...] 04/19/2021 Assessment & Plan (04/20/2021 7:48 PM COMMUNITY CULTURAL DEVELOPMENT OFFICER): Started on Rocephin in ER, will cont along with IVF, improving, but WBC still elevated, cont IV antibiotics Will need f/u with urology after treatment for stent removal Weakness 04/19/2021 Assessment & Plan (04/19/2021 8:35 AM COMMUNITY CULTURAL DEVELOPMENT OFFICER): PT/OT consulted, along with IVF Occipital scalp laceration 04/19/2021 Assessment & Plan (04/19/2021 8:35 AM COMMUNITY CULTURAL DEVELOPMENT OFFICER): S/p repair with mic in ER Primary hypertension 04/19/2021 Assessment & Plan (04/19/2021 8:36 AM COMMUNITY CULTURAL DEVELOPMENT OFFICER): Resume home meds once reconciled Acquired hypothyroidism 04/19/2021 Assessment & Plan (04/19/2021 8:36 AM COMMUNITY CULTURAL DEVELOPMENT OFFICER): Can resume synthroid once reconciled Type 2 diabetes mellitus 04/19/2021 Assessment & Plan (04/19/2021 8:42 AM COMMUNITY CULTURAL DEVELOPMENT OFFICER): Can resume home meds once reconciled Ataxic [...] on file Legal Sex Female 9:36 AM COMMUNITY CULTURAL DEVELOPMENT OFFICER Gender Identity Not on file Sexual Orientation Not on file Last Filed Vital Signs Vital Sign Reading Time Taken Comments Blood Pressure 157/72 04/22/2021 11:37 AM COMMUNITY CULTURAL DEVELOPMENT OFFICER Pulse 63 04/22/2021 11:37 AM COMMUNITY CULTURAL DEVELOPMENT OFFICER Temperature 36.7 C (98 F) 04/22/2021 11:37 AM COMMUNITY CULTURAL DEVELOPMENT OFFICER Respiratory Rate 18 04/22/2021 11:37 AM COMMUNITY CULTURAL DEVELOPMENT OFFICER Oxygen Saturation 94% 04/22/2021 11:37 AM COMMUNITY CULTURAL DEVELOPMENT OFFICER Inhaled Oxygen Concentration - - Weight 60.3 kg (133 lb) 04/19/2021 3:09 AM COMMUNITY CULTURAL DEVELOPMENT OFFICER Height 167.6 cm (5' 6) 04/19/2021 3:09 AM COMMUNITY CULTURAL DEVELOPMENT OFFICER Body Mass Index 21.47 04/19/2021 3:09 AM COMMUNITY CULTURAL DEVELOPMENT OFFICER Plan of Treatment Not on file Insurance [employer] Advance Directives For more information, please contact: [phone] * Full Code (Latest Code Status on File) Date Activated Date Inactivated Comments 04/19/2021 8:33 AM 04/22/2021 7:51 PM Care Teams Gold Miner Blasting Relationship Specialty Start Date End Date Tim Moulton MD [address] [place] [address] PCP - General 07/04/20
--- OUTSIDE RECORDS SUMMARY | 2024-12-12 18:17 | XMS_ITS | Encounter Summary ---
Author Organization [facility] Address [address] [place] [address] Care Team Providers Care Histotechnician Name Role Phone Mal Jin DO Primary Care Provider Encounter Details Date Type Department Care Team (Late st Contact Info) Description 01/08/2024 Lab Requisition [facility] - DermPath Lab [address] [facility] [place] [address] Denae Chavez MD [address] [place] [address] Neoplasm of uncertain behavior of skin Social History Tobacco Use Types Packs/Day Years Used Date Smoking Tobacco: Never Smokeless Tobacco: Never Alcohol Use Standard Drinks/Week Comments No 0 (1 standard drink = 0.6 oz pur e alcohol) Comments No Sex and Gender Information Value Date Recorded Sex Assigned at Not on file Legal Sex Female 6:02 PM CUSTOM FEED CORN OPERATOR Gender Identity Not on file Sexual Orientation Not on file documented as of this encounter Plan of Treatment Not on file documented as of this encounter Procedures Procedure Name Priority Date/Time Associated Diagnosis Comments DERMATOPATHOLOGY Routine 01/08/2024 12:0 0 AM CDT Neoplasm of uncertain behavior of skin documented in this encounter Results * DERMATOPATHOLOGY (01/08/2024 12:00 AM CDT) Case Report Dermatopathology Report Case: [id number] Authorizing Provider: Denae Chavez MD Collected: 01/08/2024 12:00 AM Ordering Location: [facility] - Received: 01/09/2024 04:24 PM DermPath Lab Pathologist: Lillie Antoine MD Specimen: Skin, righ neck 4 3:13 PM CDT DERMATOPATHOLOGY LABORATORY Final Diagnosis Specimen A. 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 Tatiana Bowers. These tests need not be, and therefore are not, approved by the [place] Food and Drug Administration. The tests are used for clinical purposes. Billing Codes Specimen Charges Stain Charges 88897 1 4 3:13 PM CDT DERMATOPATHOLOGY LABORATORY Embedded Images 4 3:13 PM CDT DERMATOPATHOLOGY LABORATORY Pathology/Cytolog y TISSUE SPECIMEN FROM SKIN / Unknown 01/08/2024 01/09/2024 4:24 PM CDT us Denae Chavez MD LAB - PATHOLOGY/CYTOLOGY ORDERAB LES Final Result DERMATOPATHOLOGY LABORATORY [facility] - Department of Dermatology [address], [address] [phone] documented in this encounter Visit Diagnoses Diagnosis Neoplasm of uncertain behavior of skin documented in this encounter Care Teams Histotechnician Relationship Specialty Start Date End Date Mal Jin DO PCP - General 06/23/19 documented as of this encounter
--- OUTSIDE RECORDS SUMMARY | 2024-12-12 18:17 | XMS_ITS | Clinical Summary ---
Author Organization [facility] Address [address] [place] [address] Care Team Providers Care Stave Block Splitter Name Role Phone Mal Jin DO Primary Care Provider Source Comments [facility],non-owned Affiliates and Associated Physician Practices is amultiple site organization consisting of ambulatory clinics and hospital sitesin [place], [place], [place] and [place]. This disclosure is being madepursuant to the Care Everywhere program and may not contain all information available regarding this patient. Last updated 18.[facility] Allergies Active Allergy Reactions Criticality Noted Date Comments Codeine Itching 09/13/2018 Morphine Itching 09/13/2018 Tramadol Other Medium 06/23/2019 Can't Function Medications * Be aware that medications may not be up to date on this document. Alwaysverify current medications with the patient. amLODIPine (NORVASC) 2.5 MG tablet Take 2.5 [...] MG tablet 01/26/2019 Active POTASSIUM PHOSPHATE PO Active Social History Tobacco Use Types Packs/Day Years Used Date Smoking Tobacco: Never Smokeless Tobacco: Never Alcohol Use Standard Drinks/Week Comments No 0 (1 standard drink = 0.6 oz pur e alcohol) Comments No Sex and Gender Information Value Date Recorded Sex Assigned at Not on file Legal Sex Female 6:02 PM DEVELOPMENT INTERN Gender Identity Not on file Sexual Orientation Not on file Last Filed Vital Signs Vital Sign Reading Time Taken Comments Blood Pressure 162/68 06/23/2019 8:02 AM DEVELOPMENT INTERN Pulse 65 06/23/2019 8:02 AM DEVELOPMENT INTERN Temperature 36.8 C (98.3 F) 09/13/2018 12:46 AM CDT Respiratory Rate 15 09/13/2018 2:24 AM CDT Oxygen Saturation 96% 09/13/2018 2:24 AM CDT Inhaled Oxygen Concentration - - Weight 59 kg (130 lb) 06/23/2019 8:02 AM DEVELOPMENT INTERN Height 167.6 cm (5' 6) 06/23/2019 8:02 AM DEVELOPMENT INTERN Body Mass Index 20.98 06/23/2019 8:02 AM DEVELOPMENT INTERN Plan of Treatment Health Maintenance Due Date Last Done Comments BONE DENSITY TESTING 1940 MEDICARE AWV 12 MONTHS 1940 DTAP/TDAP/TD VACCINES (1 - Tdap) 1959 PNEUMOCOCCAL VACCINE 50+ (1 of 1 - PCV) 1990 ZOSTER VACCINE (1 of 2) 1990 Respiratory Syncytial Virus (RSV) Vaccine Pt: or over 60 yrs (1 - 1-dose 75+ series) 2015 COVID-19 VACCINE (1 - 2023- season) 2024 DEPRESSION SCREENING 05/26/2024 INFLUENZA VACCINE (#1) 2025 9, 03/07/2018, 02/15/2017, Additional history exists HEPATITIS B VACCINE Aged Out No longe r eligible based on patient's age to complete this topic HIB VACCINE Aged Out No longer eligi ble based on patient's age to complete this topic HPV VACCINE Aged Out No longer eligi ble based on patient's age to complete this topic MENINGOCOCCAL (Group B) VACCINE SHARED DECISION-MAKING Aged Out No longer eligible based on patient's age to complete this topic MENINGOCOCCAL GROUPS A/C/Y/W VACCINE Aged Out No longer eligible based on patient's age to complete this topic Insurance ESSENCE MEDICARE ESSENCE MEDICARE ESSENCE MEDICARE ESSENCE MEDICARE ESSENCE MEDICARE ESSENCE MEDICARE ESSENCE MEDICARE ESSENCE MEDICARE ESSENCE MEDICARE ESSENCE MEDICARE Care Teams Stave Block Splitter Relationship Specialty Start Date End Date Mal Jin DO PCP - General 06/23/19
--- OUTSIDE RECORDS SUMMARY | 2024-12-12 18:17 | XMS_ITS | Patient Health Record ---
Author Organization [facility] Address [address] [place], [place] [id number] Care Team Providers Care Hotel Associate Name Role Phone VIVIANE Rasmussen Unavailable Bill Hall Unavailable Unavailable Reason For Referral No Information Medications Medication SIG (Take, Route, Frequency, Duration) Notes Start Date End Date Status Atenolol 25 MG Oral Tablet atenolol 25 MG Oral TabletOriginal Medicationatenolol 25 MG Oral Tablet *Reorder from [employer] for eRx and Interaction Alerts* Active levothyroxine sodium 0.137 MG Oral Tablet levothyroxine sodium 0.137 M G Oral TabletOriginal Medicationlevothyroxine sodium 0.137 MG Oral Tablet *Reorder from [employer] for eRx and Interaction Alerts* Active hydroCHLOROthiazide 25 MG Oral Tablet hydrochlorothiazide 25 MG Or al TabletOriginal Medicationhydrochlorothiazide 25 MG Oral Tablet *Reorder from [employer] for eRx and Interaction Alerts* Active levothyroxine sodium 0.15 MG Oral Tablet levothyroxine sodium 0.15 MG Oral TabletOriginal Medicationlevothyroxine sodium 0.15 MG Oral Tablet *Reorder from [employer] for eRx and Interaction Alerts* Active predniSONE 20 MG Oral Tablet prednisone 20 MG Oral TabletOriginal Medicationprednisone 20 MG Oral Tablet *Reorder from [employer] for eRx and Interaction Alerts* Active ondansetron 4 MG Oral Tablet ondansetron 4 MG Oral TabletOriginal Medicationondansetron 4 MG Oral Tablet *Reorder from [facility] for eRx and Interaction Alerts* Active Lisinopril 10 MG Oral Tablet lisinopril 10 MG Oral TabletOriginal Medicationlisinopril 10 MG Oral Tablet *Reorder from [facility] for eRx and Interaction Alerts* Active sulfamethoxazole 800 MG / trimethoprim 160 MG Oral Tablet sulfamethoxazole 800 MG / trimethoprim 160 MG Oral TabletOriginal Medicationsulfamethoxazole 800 MG / trimethoprim 160 MG Oral Tablet *Reorder from [facility] for eRx and Interaction Alerts* Active levothyroxine sodium 0.125 MG Oral Tablet levothyroxine sodium 0.125 M G Oral TabletOriginal Medicationlevothyroxine sodium 0.125 MG Oral Tablet *Reorder from [facility] for eRx and Interaction Alerts* Active estrogens, conjugated (PRISON) 0.625 MG Oral Tablet [Premarin] estrogens, conjugated (PRISON) 0.625 MG Oral Tablet [Premarin]Original Medicationestrogens, conjugated (PRISON) 0.625 MG Oral Tablet [Premarin] *Reorder from [facility] for eRx and Interaction Alerts* Active levothyroxine sodium 0.088 MG Oral Tablet levothyroxine sodium 0.088 M G Oral TabletOriginal Medicationlevothyroxine sodium 0.088 MG Oral Tablet *Reorder from [facility] for eRx and Interaction Alerts* Active Amoxicillin 500 MG Oral Capsule amoxicillin 500 MG Oral CapsuleOriginal Medicationamoxicillin 500 MG Oral Capsule *Reorder from [facility] for eRx and Interaction Alerts* Active Azithromycin 250 MG Oral Tablet azithromycin 250 MG Oral TabletOriginal Medicationazithromycin 250 MG Oral Tablet *Reorder from [facility] for eRx and Interaction Alerts* Active Lisinopril 30 MG Oral Tablet lisinopril 30 MG Oral TabletOriginal Medicationlisinopril 30 MG Oral Tablet *Reorder from [facility] for eRx and Interaction Alerts* Active carbidopa 25 MG / levodopa 100 MG Oral Tablet carbidopa 25 MG / levodopa 1 00 MG Oral TabletOriginal Medicationcarbidopa 25 MG / levodopa 100 MG Oral Tablet *Reorder from [facility] for eRx and Interaction Alerts* 013 Active ciprofloxacin 500 MG Oral Tablet ciprofloxacin 500 MG Oral TabletOriginal Medicationciprofloxacin 500 MG Oral Tablet *Reorder from [facility] for eRx and Interaction Alerts* 013 Active Plan Of Treatment No Information Insurance Providers Payer Name Payer Address Payer Phone Subscriber Number Group Number Insured Name Patient Relationship to Insured Coverage Start Date Coverage End Date Medicare Part B [facility] [address] [place] [phone] [id number] SILVIA GARRISON Self - patient is the insured
--- OUTSIDE RECORDS SUMMARY | 2024-12-12 18:17 | XMS_ITS | Encounter Summary ---
Author Organization [facility] Address [address] [place] [address] Care Team Providers Care Inside Sales Assistant Name Role Phone Mal Jin DO Primary Care Provider Encounter Details Date Type Department Care Team (Late st Contact Info) Description 09/12/2023 Lab Requisition [facility] - DermPath Lab [address] [facility], [place] [address] Denae Chavez MD [address] [place] [address] Neoplasm of uncertain behavior of skin Social History Tobacco Use Types Packs/Day Years Used Date Smoking Tobacco: Never Smokeless Tobacco: Never Alcohol Use Standard Drinks/Week Comments No 0 (1 standard drink = 0.6 oz pur e alcohol) Comments No Sex and Gender Information Value Date Recorded Sex Assigned at Not on file Legal Sex Female 6:02 PM CONSERVATION TECHNICIAN Gender Identity Not on file Sexual Orientation Not on file documented as of this encounter Plan of Treatment Not on file documented as of this encounter Procedures Procedure Name Priority Date/Time Associated Diagnosis Comments DERMATOPATHOLOGY Routine 09/12/2023 3:33 AM CDT Neoplasm of uncertain behavior of skin documented in this encounter Results * DERMATOPATHOLOGY (09/12/2023 3:33 AM CDT) Case Report Dermatopathology Report Case: [id number] Authorizing Provider: Denae Chavez MD Collected: 09/12/2023 03:33 AM Ordering Location: [facility] - Received: 09/15/2023 12:50 PM DermPath Lab Pathologist: Lillie Antoine MD Specimen: Skin, left ventral forearm 4 5:34 PM CDT DERMATOPATHOLOGY LABORATORY Final Diagnosis Specimen A. 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 Squamous Cell Carcinoma 4 5:34 PM CDT DERMATOPATHOLOGY LABORATORY Gross Description Specimen A: Received is one formalin filled container labeled with the patient's name and designated left ventral forearm. The specimen consists of a shave biopsy measuring 10x8x2 mm. Jar 0. 4 5:34 PM CDT DERMATOPATHOLOGY LABORATORY Microscopic Description Specimen A. SKIN, left ventral forearm: The epidermis shows parakeratosis, full thickness disorderly maturation of keratinocytes, mitoses at different levels, and dyskeratotic cells. 4 5:34 PM CDT DERMATOPATHOLOGY LABORATORY Disclaimer An external and internal positive and negative controls are appropriate for the histochemical, immunohistochemical and immunofluorescence stain(s) in this case (if any), except where stated explicitly. The performance characteristics of the stain(s) cited in this report were developed and its performance characteristic determined by the Dermatopathology Laboratory at [facility], directed by Dr. Tatiana Bowers. These tests need not be, and therefore are not, approved by the [place] Food and Drug Administration. The tests are used for clinical purposes. Billing Codes Specimen Charges Stain Charges 96693 1 4 5:34 PM CDT DERMATOPATHOLOGY LABORATORY Embedded Images 4 5:34 PM CDT DERMATOPATHOLOGY LABORATORY Pathology/Cytolo gy TISSUE SPECIMEN FROM SKIN / Unknown 09/12/2023 3:33 AM CDT 09/15/2023 12:50 PM CDT us Denae Chavez MD LAB - PATHOLOGY/CYTOLOGY ORDERAB LES Final Result DERMATOPATHOLOGY LABORATORY [facility] - Department of Dermatology [address], [address] [phone] documented in this encounter Visit Diagnoses Diagnosis Neoplasm of uncertain behavior of skin documented in this encounter Care Teams Inside Sales Assistant Relationship Specialty Start Date End Date Mal Jin DO PCP - General 06/23/19 documented as of this encounter
--- OUTSIDE RECORDS SUMMARY | 2024-12-12 18:17 | XMS_ITS | Clinical Summary ---
Author Organization [facility] Address [facility] [place] [address] Care Team Providers Care Metal Bed Assembler Name Role Phone Jeovany Zuniga MD Primary Care Provider [phone] Allergies Active Allergy Reactions Criticality Noted Date [...] Needle (PEN NEEDLES) 32G X 5 MM [facility] Use pen needles as directed 90 each [...] tunnel syndrome 10/02/2017 Hydrocephalus, idiopathic normal pressure ([facility] HHS/HCC) 03/09/2017 Venous insufficiency 01/13/2017 Choledocholithiasis 12/09/2016 Osteoarthritis of right knee 04/24/2016 Type 2 diabetes mellitus wit h stage 2 chronic kidney disease, without long-term current use of insulin ([facility] HHS/[facility]) 09/18/2015 Overview (04/30/2021): Last Assessment & [...] 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 04/16/2019 Immunizations Immunization Administration Dates Next Due Fluzone High Dose [...] 10:13 AM CDT Height 167.6 cm (5' 6) 09/13/2023 10:1 3 AM CDT Body Mass [...] COVID-19 Vaccine ( season) 2024 07/27/2020, 06/29/2020 DTaP, Tdap and Td Vaccines (6 - Td or Tdap) 04/18/2031 04/18/2021, 11/27/2017, 11/27/2017, Additional history exists Pneumococcal Vaccine: 50+ Years Completed 03/25/2022, 02/26/2019, 03/22/2015 Meningococcal B Vaccine Aged Out No l onger eligible based on patient's age to complete this topic Meningococcal Vaccine Aged Out No chio errol eligible based on patient's age to complete this topic RSV Immunizations Under 20 Months Aged Out No longer eligible based on patient's age to complete this topic Medical Devices Implanted Type Area Preventative Maintenance Technician Device Identifier Shelf Expiration Date Model / Serial / Lot Stent Ureteral [place] Sci Contour 6fr X 22cm - [id number] Implanted:Qty : 1 on 04/12/2021 by Chaparro Salomon MD at [facility] Stent Right: Ureter [employer] [id number] 01/29/2024 [id number] Explanted Type Area Preventative Maintenance Technician Device Identifier Shelf Expiration Date Model / Serial / Lot Stent Ureteral [place] Sci Contour 6fr X 22cm - [id number] Implanted:Qty : 1 on 03/15/2021 by Chaparro Salomon MD at [facility] Explanted:Qty : 1 on 04/12/2021 by Chaparro Salomon MD at [facility] Stent Right: Ureter [employer] [id number] 11/25/2023 [id number] Procedures Procedure Name Priority Date/Time Associated Diagnosis [...] A1C 7.1(H) <5.7 % 02/19/2022 12:04 PM T [facility] Comment: ADA GUIDELINES 2010 5.7 TO 6.4% INCREASED RISK OF DIABETES > OR = 6.5% CONSISTENT WITH DIABETES ESTIMATED AVG GLUCOSE 157 mg/dL 02/19/2022 12:04 PM T [facility] 02/19/2022 10:2 5 AM CDT Bharat Gaytan DO LABORATORY Final Result [facility] [address] [place] [address], [place] [phone] * (ABNORMAL) LIPID PANEL (02/19/2022 10:25 AM CDT) CHOLESTEROL 262(H) <200 MG/DL 02/19/2022 12:07 PM CDT [facility] TRIGLYCERIDES 263(H) <150 MG/DL 02/19/2022 12:07 PM CDT [facility] HDL 36(L) >40.0 MG/DL 02/19/2022 12:07 PM CDT [facility] LDL (CALCULATED) 173(H) <100 MG/DL 02/19/2022 12:07 PM CDT [facility] NON HDL CHOLESTEROL 226(H) <130 MG/DL 02/19/2022 12:07 PM T [facility] CHOL/HDL RATIO 7.3(H) 0.0 - 4.5 02/19/2022 12:07 PM CDT [facility] VLDL CALCULATION 53 5 - 55 MG/DL 02/19/2022 12:07 PM T [facility] LIPID INTERPRETATION 02/19/2022 12:07 PM CDT [facility] Comment: NIH CONCENSUS REPORT RECOMMENDATIONS: ADULT CHILD LOW RISK: CHOLESTEROL <200 <170 TRIGLYCERIDE <150 --- HDL >=60 --- LDL <100 <110 BORDERLINE: CHOLESTEROL 200-239 170-199 TRIGLYCERIDE 150-199 --- HDL 40-59 --- LDL 100-159 110-129 HIGH RISK: CHOLESTEROL >=240 >=200 TRIGLYCERIDE >=200 --- HDL <40 --- LDL >=160 >=130 02/19/2022 10:2 5 AM CDT Bharat Gaytan DO LABORATORY Final Result [facility] [address] [place] [address], from Last 3 Months or Most Recently Relevant to Health Maintenance Insurance [employer] Advance Directives Documents on File Type Date Recorded Patient Time Study Clerk Expl anation Power of Agricultural Chemist Advance Directives and Livin g Will 01/07/2022 [...] 11:51 PM 08/18/2021 9:21 PM Care Teams Metal Bed Assembler Relationship Specialty Start Date End Date Jeovany Zuniga MD [address] [address] PCP - General FAMILY PRACTICE 09/10/23
--- OUTSIDE RECORDS SUMMARY | 2024-12-12 18:17 | XMS_ITS ---
Author Organization 1 OF Loren payan [facility] Address [address] [address] Care Team Providers Care Dispatcher Relay Name Role Phone Nadia HOLM, Jeovany Primary Care Provider Gavino Noble Unavailable REASON FOR VISIT DFC (Diabetic foot care) Encounters Encounter Location Date Provider Diagnosis 1 OF Loren Hubbard [facility] [address] [address] 07/12/2024 Gavino Hubbard Onychogryphosis L60.2 ; Diabetic [...] PRN with any concerns, Reason: Provider Name:Gavino Michel Stevie, 12/24/2024 11:30:00 AM, [address], [facility] [address], [place], [address], Procedure Notes * Category Sub-Category Detail Notes PALLIATIVE FOOT CARE: Nail debride (05194): Debr idement of at least six mycotic and/or hypertrophic nails performed:, utilizing manual and electric debridement the affected nails were reduced the nails in length and thickness with curettage of debris from nail margins performed as needed. Nail thickness reduced by:, 10% Progress Notes * Ban GARRISONDOB: 0 (84 yo F)Acc No.[id number]:07/12/2024 Progress Note Patient: Ban YEE Provider: Loren Hubbard DPM :1940 A ge:84 Y S ex:Female Date:07/12/2024 Address:[address] [place] [address], [address] [facility] Pcp:Jeovany Zuniga MD Subjective: * Chief Complaints: * 1 . DFC (Diabetic foot care). * HPI: M A assisting with visit:: Chart Prep L kevyn. HPI/[facility]ing: . ..... [facility] reason for visit:: 84 y/o diabetic female [...] suspicious lesions, bilateral. Nails: N ail plates of:[id number] relatively thickened, dystrophic, discolored, incurvated.. Hyperkeratotic lesions [...] Procedures: P ALLIATIVE FOOT CARE:: Nail debride (29324): D ebridement of at least six mycotic [...] Electronic signature of Dana Hubbard DPM on 12/12/2024 at 06:16 PM CDT Sign off status: Pending * Provider: Loren Hubbard DPM Date: 0 07/12/2024 Generated for Carloz torres/Mignon/Jett on: 0 12/12/2024 06:16 PM CDT History and Physical Notes * [...]
--- OUTSIDE RECORDS SUMMARY | 2024-12-12 18:17 | XMS_ITS | Clinical Summary ---
Author Organization [facility] Address [address] [place] [address] Care Team Providers Care Insulation Worker Name Role Phone Tim Moulton MD Primary [...] mcg tablet Take 75 mcg by mouth production packager before breakfast 1 Active lisinopriL (PRINIVIL,ZESTRI L) [...] 04/19/2021 Assessment & Plan (04/20/2021 7:48 PM RACING DRIVER): Started on Rocephin in ER, will cont along with IVF, improving, but WBC still elevated, cont IV antibiotics Will need f/u with urology after treatment for stent removal Weakness 04/19/2021 Assessment & Plan (04/19/2021 8:35 AM RACING DRIVER): PT/OT consulted, along with IVF Occipital scalp laceration 04/19/2021 Assessment & Plan (04/19/2021 8:35 AM RACING DRIVER): S/p repair with mic in ER Primary hypertension 04/19/2021 Assessment & Plan (04/19/2021 8:36 AM RACING DRIVER): Resume home meds once reconciled Acquired hypothyroidism 04/19/2021 Assessment & Plan (04/19/2021 8:36 AM RACING DRIVER): Can resume synthroid once reconciled Type 2 diabetes mellitus 04/19/2021 Assessment & Plan (04/19/2021 8:42 AM RACING DRIVER): Can resume home meds once reconciled Ataxic [...] on file Legal Sex Female 9:36 AM RACING DRIVER Gender Identity Not on file Sexual Orientation Not on file Obstetrics History Last Filed Vital Signs Vital Sign Reading Time Taken Comments Blood Pressure 157/72 04/22/2021 11:37 AM RACING DRIVER Pulse 63 04/22/2021 11:37 AM RACING DRIVER Temperature 36.7 C (98 F) 04/22/2021 11:37 AM RACING DRIVER Respiratory Rate 18 04/22/2021 11:37 AM RACING DRIVER Oxygen Saturation 94% 04/22/2021 11:37 AM RACING DRIVER Inhaled Oxygen Concentration - - Weight 60.3 kg (133 lb) 04/19/2021 3:09 AM RACING DRIVER Height 167.6 cm (5' 6) 04/19/2021 3:09 AM RACING DRIVER Body Mass Index 21.47 04/19/2021 3:09 AM RACING DRIVER Plan of Treatment Not on file Insurance [facility]ARE Advance Directives For more information, please contact: [phone] * Full Code (Latest Code Status on File) Date Activated Date Inactivated Comments 04/19/2021 8:33 AM 04/22/2021 7:51 PM Care Teams Insulation Worker Relationship Specialty Start Date End Date Tim Moulton [place] [address] [place] [address] PCP - General 07/04/20
--- OUTSIDE RECORDS SUMMARY | 2024-12-12 18:17 | XMS_ITS | Continuity of Care Document ---
Author Organization [facility] Address [address] [place] [address] Phone Care Team Providers Care Banking And Finance Instructor Name Role Phone Rakesh Mccollum DO Unavailable Unavailable Advance Directives Directive Yes / No Effective Date File Name No Information Encounters Encounter Description Practice Location Reason(s) For Visit Diagnoses Date Provider Providers [facility] [address], [place], [place], [id number], [place] tel:[phone] [facility] No Information Veda Flores. [address] [place], [address], [place]. tel: [phone] Family History Family Member Type Diagnosis Age At Onset No Information Payers Payer name Insurance type Covered democrat ID Authoriza tion(s) No Information Social History [...]
--- OUTSIDE RECORDS SUMMARY | 2024-12-12 18:17 | XMS_ITS | Encounter Summary ---
Author Organization [facility] Address [facility] [place] [address] Care Team Providers Care Cnc Specialist Name Role Phone Mal Jin Jose D DO Primary Care Provider [phone] Tim Moulton MD Primary Care Provider [phone] Bety Swift RN Unavailable Unavailable Mikala Pillai RN Unavailable [phone] Bharat Gaytan DO Primary Care Provider [phone] Della Marley RN Unavailable Ricardo Wiseman DO Primary Care Provider None, Provider Primary Care Provider UnavailJeovany Cain MD Primary Care Provider [phone] Encounter Details Date Type Department Care Team (Late st Contact Info) Description 10/31/2018 Abstract [facility] CONVERSION [address] [place], [place] [phone] , Generic Conversion, Social History Tobacco Use [...] Rule Out 07/18/2021 07/18/2021 07/18/2021 12:13 PM TOOL MACHINE SETUP OPERATOR documented as of this encounter Care Teams Cnc Specialist Relationship Specialty Start Date End Date Mal Jin DO PCP - General FAMILY PRACTICE 09/20/17 09/21/19 Tim Moulton MD PCP - General FAMILY PRACTICE 09/22/19 11/22/21 Bharat Gaytan DO [address] [place] [address] [phone] PCP - General FAMILY PRACTICE 11/23/21 05/14/22 Ricardo Wiseman DO [address] [place] [address] PCP - General FAMILY PRACTICE 05/21/22 03/04/23 None, MD Ronen PCP - General UNKNOWN PHYSICIAN SPECIALTY 06/11/23 09/09/23 Jeovany Zuniga MD [address] [place], [place] [id number] PCP - General FAMILY PRACTICE 09/10/23 Bety Swift RN Care Manager (Ambulatory) REGISTERED NURSE 03/15/21 07/12/21 Mikala Pillai, JAMEL [address] [place] [address] [phone] Air Sampling And Monitoring (Ambulatory) REGISTERED NURSE 07/27/21 08/19/21 Della Marley, RN [address] [place] [address] [phone] Air Sampling And Monitoring (Ambulatory) REGISTERED NURSE 12/31/21 02/26/22 documented as of this encounter
--- OUTSIDE RECORDS SUMMARY | 2024-12-12 18:18 | XMS_ITS ---
Author Organization 1 OF Loren payan [facility] Address [address] [place] [address] Care Team Providers Care Mixing Picker Tender Name Role Phone Nadia HOLM, Jeovany Primary Care Provider Gavino Noble [phone] REASON FOR VISIT DFC (Diabetic foot care) Encounters Encounter Location Date Provider Diagnosis 1 OF Loren Hubbard [facility] [address] [place] [address] 10/08/2024 Gavino Hubbard Onychogryphosis L60.2 and Diabetic [...] of regular and professional palliative foot care. 10/08/2024 Other Plan Of Treatment Treatment Notes Assessment Notes Diabetic peripheral neuropathy Consideri ng the associated comorbidities and physical exam findings today, this patient is at substantial risk of developing serious foot complications in the absence of regular and professional palliative foot care. Next Appt Details Follow Up: 10-12 weeks or co ntact office PRN with any concerns, Reason: Provider Name:Gavino Hubbard, 12/24/2024 11:30:00 AM, [address], [address], [place], [address], Procedure Notes * Category Sub-Category Detail Notes PALLIATIVE FOOT CARE: Nail debride (75592): Debr idement of at least six mycotic and/or hypertrophic nails performed:, utilizing manual and electric debridement the affected nails were reduced the nails in length and thickness with curettage of debris from nail margins performed as needed. Nail thickness reduced by:, 10% Progress Notes * Ban GARRISONDOB: 0 (84 yo F)Acc No.[id number]:10/08/2024 Progress Note Patient: Ban YEE Provider: Loren Hubbard DPM :1940 A ge:84 Y S ex:Female Date:10/08/2024 Address:[facility] [address] [place], [facility] Pcp:Jeovany Zuniga MD Subjective: * Chief Complaints: * 1 . DFC (Diabetic foot care). * HPI: Sara Mcgill assisting with visit:: Alexa Ruano. HPI/Rooming: , ...... P [facility] reason for visit:: 84 y/o [...] suspicious lesions, bilateral. Nails: N ail plates of:[id number] relatively thickened, dystrophic, discolored, incurvated.. Hyperkeratotic lesions [...] Procedures: P ALLIATIVE FOOT CARE:: Nail debride (64737): D ebridement of at least six mycotic [...] of Dana Hubbard DPM on 12/12/2024 at 06:17 PM CDT Sign off status: Pending * Provider: Loren Hubbard DPM Date: 0 10/08/2024 Generated for Carloz Portillo/Jett on: 0 12/12/2024 06:17 PM CDT History and Physical Notes * HPI (History of Present Illness) Category Sub-Category Detail Notes Category Not es Primary reason for visit: 84 y/o diabetic female RTO for diabetic foot care. Patient reports no acute issues with nails or calluses today. MA assisting with visit: HPI/Rooming: , ..... Chart Prep Alexa Examination Category Sub-Category Detail Notes Category [...]
--- OUTSIDE RECORDS SUMMARY | 2024-12-12 18:18 | XMS_ITS | Encounter Summary ---
Author Organization [facility] Address [address] [place] [address] Care Team Providers Care Deckhand Tuna Boat Name Role Phone Mal Jin DO Primary Care Provider Encounter Details Date Type Department Care Team (Late st Contact Info) Description 10/09/2022 Lab Requisition [facility] - DermPath Lab [address] [facility] [address] [place] [address] Denae Chavez MD [address] [place] [address] Basal cell carcinoma of skin of right [...] on file Legal Sex Female 6:02 PM LINE PATROLMAN Gender Identity Not on file Sexual Orientation [...] AM CDT) Case Report Dermatopathology Report Case: [id number] Authorizing Provider: Denae Chavez MD Collected: 10/09/2022 12:00 AM Ordering Location: [facility] Received: 10/11/2022 06:43 AM Pathologist: [...] PATTERN (C44.311) 9:15 AM CDT DERMATOPATHOLOGY LABORATORY at 0915 CDT Clinical History A-C: Basal Cell Carcinoma Check margins 9:15 AM CDT DERMATOPATHOLOGY LABORATORY Gross Description Specimen A: Received is one formalin filled container labeled with the patient's name and designated right anterior upper arm. The specimen consists of a non-oriented ellipse of skin measuring 18l30u0 mm. The epidermal surface is unremarkable. The [...] of a non-oriented ellipse of skin measuring 93q60s8 mm. The epidermal surface is unremarkable. The [...] 6x5x2 mm. Jar 0. 3 9:15 AM [facility] DERMATOPATHOLOGY LABORATORY Microscopic Description Specimen A. SKIN, [...] that infiltrate the dermis. 3 9:15 AM [facility] DERMATOPATHOLOGY LABORATORY Disclaimer An external and internal positive and negative controls are appropriate for the histochemical, immunohistochemical and immunofluorescence stain(s) in this case (if any), except where stated explicitly. The performance characteristics of the stain(s) cited in this report were developed and its performance characteristic determined by the Dermatopathology Laboratory at [facility], directed by Dr. Tatiana Bowers. These tests need not be, and therefore are not, approved by the [place] Food and Drug Administration. The tests are used for clinical purposes. Billing Codes Specimen Charges Stain Charges 95715 67783 74953 1 1 1 3 9:15 AM [facility] DERMATOPATHOLOGY LABORATORY Embedded Images 3 9:15 AM [facility] DERMATOPATHOLOGY LABORATORY Pathology/Cytology TISSUE SPECIMEN FROM SKIN / Unknown 10/09/2022 10/11/2022 6:43 AM CDT Miscellaneous samples (specimen) TISSUE SPECIMEN FROM SKIN / Unknown 10/09/2022 10/11/2022 6:43 AM CDT Miscellaneous samples (specimen) TISSUE SPECIMEN FROM SKIN / Unknown 10/09/2022 10/11/2022 6:43 AM CDT us Denae Chavez MD LAB - PATHOLOGY/CYTOLOGY ORDERAB LES Final Result DERMATOPATHOLOGY LABORATORY [facility] - Department of Dermatology [facility] Medicine [address] [place] [address], [address] [phone] documented in this encounter Visit Diagnoses Diagnosis Basal cell carcinoma of skin of right upper limb, including shoulder Basal cell carcinoma of skin of upper limb, including shoulder Basal cell carcinoma of skin of nose Basal cell carcinoma of skin of other and unspecified parts of face documented in this encounter Care Teams Deckhand Tuna Boat Relationship Specialty Start Date End Date Mal Jin DO PCP - General 06/23/19 documented as of this encounter
--- OUTSIDE RECORDS SUMMARY | 2024-12-12 18:18 | XMS_ITS | Encounter Summary ---
Author Organization [facility] Address [address] [facility] [place] [address] Care Team Providers Care Propellant Charge Zone Assembler Name Role Phone Mal Jin DO Primary Care Provider Encounter Details Date Type Department Care Team (Late st Contact [facility]) Description 04/08/2023 Lab Requisition [facility] - DermPath Lab [address] [facility], [place] [phone] Sebastian Garcia MD [facility] DERMATOLOGY [address] [place] [phone] Neoplasm of uncertain behavior of skin Social History Tobacco Use Types Packs/Day Years Used Date Smoking Tobacco: Never Smokeless Tobacco: Never Alcohol Use Standard Drinks/Week Comments No 0 (1 standard drink = 0.6 oz pur e alcohol) Comments No Sex and Gender Information Value Date Recorded Sex Assigned at Not on file Legal Sex Female 6:02 PM PARATRANSIT DRIVER Gender Identity Not on file Sexual Orientation Not on file documented as of this encounter Plan of Treatment Not on file documented as of this encounter Procedures Procedure Name Priority Date/Time Associated Diagnosis Comments DERMATOPATHOLOGY Routine 04/08/2023 3:33 AM PARATRANSIT DRIVER Neoplasm of uncertain behavior of skin documented in this encounter Results * DERMATOPATHOLOGY (04/08/2023 3:33 AM PARATRANSIT DRIVER) Case Report Dermatopathology Report Case: [id number] Authorizing Provider: Sebastian Garcia MD Collected: 04/08/2023 03:33 AM Ordering Location: [facility] DermPath Lab Received: 04/09/2023 04:00 PM Pathologist: Marlene Antoine MD Specimen: Skin, mid back 3 3:46 PM [facility] DERMATOPATHOLOGY LABORATORY Final Diagnosis Specimen A. SKIN, mid back: DERMAL SCAR (L90.5) 3 3:46 PM [facility] DERMATOPATHOLOGY LABORATORY at 1546 PARATRANSIT DRIVER Clinical History Basal Cell Carcinoma 3 3:46 PM PARATRANSIT DRIVER DERMATOPATHOLOGY LABORATORY Gross Description Specimen A: Received is one formalin filled container labeled with the patient's name and designated mid back. The specimen consists of a shave biopsy measuring 5x5x1 mm. Jar 0. 3 3:46 PM [facility] DERMATOPATHOLOGY LABORATORY Microscopic Description Specimen A. SKIN, mid back: There are fibroblasts and collagen bundles oriented parallel to the skin surface with elongated blood vessels, some of which are oriented perpendicular to the skin surface. 3 3:46 PM [facility] DERMATOPATHOLOGY LABORATORY Disclaimer An external and [...] purposes. Billing Codes Specimen Charges Stain Charges 56211 1 3 3:46 PM PARATRANSIT DRIVER DERMATOPATHOLOGY LABORATORY Embedded Images 3 3:46 PM [facility] DERMATOPATHOLOGY LABORATORY Pathology/Cytolo gy TISSUE SPECIMEN FROM SKIN / Unknown 04/08/2023 3:33 AM PARATRANSIT DRIVER 04/09/2023 4:00 PM PARATRANSIT DRIVER us Sebastian Garcia MD LAB - PATHOLOGY/CYTOLOGY CHRIS FULLER Final Result DERMATOPATHOLOGY LABORATORY [facility] - Department of Dermatology [address], [address] [phone] documented in this encounter Visit Diagnoses Diagnosis Neoplasm of uncertain behavior of skin documented in this encounter Care Teams Propellant Charge Zone Assembler Relationship Specialty Start Date End Date Mal Jin DO PCP - General 06/23/19 documented as of this encounter
--- OUTSIDE RECORDS SUMMARY | 2024-12-12 18:18 | XMS_ITS | Encounter Summary ---
Author Organization [facility] Address [address] [facility] [place] [address] Care Team Providers Care Injection Maintenance Technician Name Role Phone Mal Jin DO Primary Care Provider Encounter Details Date Type Department Care Team (Late st Contact Info) Description 01/21/2023 Lab Requisition [facility] - DermPath Lab [address] [facility], [place] [phone] Sebastian Garcia MD [facility] DERMATOLOGY [address] [place] [phone] Neoplasm of uncertain behavior of skin Social History Tobacco Use Types Packs/Day Years Used Date Smoking Tobacco: Never Smokeless Tobacco: Never Alcohol Use Standard Drinks/Week Comments No 0 (1 standard drink = 0.6 oz pur e alcohol) Comments No Sex and Gender Information Value Date Recorded Sex Assigned at Not on file Legal Sex Female 6:02 PM CLASSROOM COORDINATOR Gender Identity Not on file Sexual Orientation Not on file documented as of this encounter Plan of Treatment Not on file documented as of this encounter Procedures Procedure Name Priority Date/Time Associated Diagnosis Comments DERMATOPATHOLOGY Routine 01/21/2023 3:33 AM CDT Neoplasm of uncertain behavior of skin documented in this encounter Results * DERMATOPATHOLOGY (01/21/2023 3:33 AM CDT) Case Report Dermatopathology Report Case: [id number] Authorizing Provider: Sebastian Garcia MD Collected: 01/21/2023 03:33 AM Ordering Location: [facility] DermPath Lab Received: 01/22/2023 11:51 AM Pathologist: Lillie Antoine MD Specimens: A) - Skin, left upper arm B) - Skin, left posterior shoulder B C) - Skin, left posteriior shoulder C D) - Skin, left mid upper back E) - Skin, right anterior shoulder 3 2:59 PM CDT DERMATOPATHOLOGY LABORATORY Final Diagnosis Specimen [...] (C44.519) 3 2:59 PM T DERMATOPATHOLOGY LABORATORY at 1459 CDT Clinical History A-B: Basal cell carcinoma C: [...] 8x8x1 mm. Jar 0. 3 2:59 PM CDT DERMATOPATHOLOGY LABORATORY Microscopic Description Specimen [...] ratio and peripheral palisading. 3 2:59 PM CDT DERMATOPATHOLOGY LABORATORY Disclaimer An external and internal positive and negative controls are appropriate for the histochemical, immunohistochemical and immunofluorescence stain(s) in this case (if any), except where stated explicitly. The performance characteristics of the stain(s) cited in this report were developed and its performance characteristic determined by the Dermatopathology Laboratory at [facility], directed by Dr. Tatiana Bowers. These tests need not be, and therefore are not, approved by the [place] Food and Drug Administration. The tests are used for clinical purposes. Billing Codes Specimen Charges Stain Charges 49464 96506 56994 31965 98420 1 1 1 1 1 3 2:59 [...] 3:33 AM CDT 01/22/2023 11:51 AM CDT us Sebastian Garcia MD LAB - PATHOLOGY/CYTOLOGY CHRIS FULLER Final Result DERMATOPATHOLOGY LABORATORY [facility] - Department of Dermatology [facility] Medicine [address] [place] [address], [address] [phone] documented in this encounter Visit Diagnoses Diagnosis Neoplasm of uncertain behavior of skin documented in this encounter Care Teams Injection Maintenance Technician Relationship Specialty Start Date End Date Mal Jin DO PCP - General 06/23/19 documented as of this encounter
--- OUTSIDE RECORDS SUMMARY | 2024-12-12 18:18 | XMS_ITS | Encounter Summary ---
Author Organization [facility] Address [address] [facility] [place] [address] Care Team Providers Care Rn Radiation Oncology Name Role Phone Mal Jin DO Primary Care Provider Encounter Details Date Type Department Care Team (Late st Contact Info) Description 02/26/2023 Lab Requisition [facility] - DermPath Lab [address] [facility], [place] [address] Denae Chavez MD [address] [place] [address] Basal cell carcinoma of skin of left upper limb, including shoulder Social History Tobacco Use Types Packs/Day Years Used Date Smoking Tobacco: Never Smokeless Tobacco: Never Alcohol Use Standard Drinks/Week Comments No 0 (1 standard drink = 0.6 oz pur e alcohol) Comments No Sex and Gender Information Value Date Recorded Sex Assigned at Not on file Legal Sex Female 6:02 PM 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 SKIN, left posterior shoulder B: BASAL CELL CARCINOMA (C44.619) NOT PRESENT AT MARGIN DERMAL SCAR (L90.5) 5:34 PM CDT DERMATOPATHOLOGY LABORATORY at 1734 CDT Clinical History Basal Carcinoma. Check Margins 5:34 PM CDT DERMATOPATHOLOGY LABORATORY Gross Description Specimen A: Received is one formalin filled container labeled with the patient's name and designated left posterior shoulder B. The specimen consists of a non-oriented ellipse of skin measuring 38r70q0 mm. The margin is inked green. The [...] characteristic determined by the Dermatopathology Laboratory at [facility], directed by Dr. Tatiana Bowers. These tests need not be, and therefore are not, approved by the [place] Food and Drug Administration. The tests are used for clinical purposes. Billing Codes Specimen Charges Stain Charges 49727 1 5:34 PM CDT DERMATOPATHOLOGY LABORATORY Embedded Images 5:34 PM CDT DERMATOPATHOLOGY LABORATORY Pathology/Cytolog y TISSUE SPECIMEN FROM SKIN / Unknown 02/26/2023 02/27/2023 1:55 PM CDT us Denae Chavez MD LAB - PATHOLOGY/CYTOLOGY ORDERAB LES Final Result DERMATOPATHOLOGY LABORATORY [facility] - Department of Dermatology [address], [address] [phone] documented in this encounter Visit Diagnoses Diagnosis Basal cell carcinoma of skin of left upper limb, including shoulder Basal cell carcinoma of skin of upper limb, including shoulder documented in this encounter Care Teams Rn Radiation Oncology Relationship Specialty Start Date End Date Mal Jin DO PCP - General 06/23/19 documented as of this encounter
--- OUTSIDE RECORDS SUMMARY | 2024-12-12 18:18 | XMS_ITS | Encounter Summary ---
Author Organization [facility] Address [facility] [place] [address] Care Team Providers Care Stationary Engineer Name Role Phone Mal Jin DO Primary Care Provider [phone] Tim Moulton MD Primary Care Provider [phone] Bety Swift RN Unavailable Unavailable Mikala Pillai RN Unavailable Bharat Gaytan DO Primary Care Provider [phone] Della Marley RN Unavailable Ricardo Wiseman DO Primary Care Provider None, Provider Primary Care Provider Unavaila Jeovany Ricks MD Primary Care Provider [phone] Encounter Details Date Type Department Care Team (Late st Contact Info) Description 01/20/2018 [facility] Family Medicine - [address] [address] Mal Jin DO [address] [place] [phone] Social History Tobacco Use Types Packs/Day Years [...] Rule Out 07/18/2021 07/18/2021 07/18/2021 12:13 PM TIMBER MANAGEMENT SPECIALIST documented as of this encounter Care Teams Stationary Engineer Relationship Specialty Start Date End Date Mal Jin DO PCP - General FAMILY PRACTICE 09/20/17 09/21/19 Tim Moulton MD PCP - General FAMILY PRACTICE 09/22/19 11/22/21 Bharat Gaytan DO [address] [place] [address] PCP - General FAMILY PRACTICE 11/23/21 05/14/22 Ricardo [place] [address] PCP - General FAMILY PRACTICE 05/21/22 03/04/23 None, MD Ronen PCP - General UNKNOWN PHYSICIAN SPECIALTY 06/11/23 09/09/23 Jeovany Zuniga MD [address] [address] PCP - General FAMILY PRACTICE 09/10/23 Bety Swift supervisor cutting and boning (Ambulatory) REGISTERED NURSE 03/15/21 07/12/21 Mikala Pillai, JAMEL [address] [place], [place] [address] Choker Setter (Ambulatory) REGISTERED NURSE 07/27/21 08/19/21 Della Marley, RN [address] [place] [address] Choker Setter (Ambulatory) REGISTERED NURSE 12/31/21 02/26/22 documented as of this encounter
--- OUTSIDE RECORDS SUMMARY | 2024-12-12 18:18 | XMS_ITS | Encounter Summary ---
Author Organization [facility] Address [address] [place] [address] Care Team Providers Care Roadway Designer Name Role Phone Tim Moulton MD Primary Care Provider [phone] Bety Swift RN Unavailable Unavailable Mikala Pillai RN Unavailable Bharat Gaytan DO Primary Care Provider [phone] Della Marley RN Unavailable Ricardo Wiseman DO Primary Care Provider None, Provider Primary Care Provider Unavaila Jeovany Ricks MD Primary Care Provider [phone] Reason for Referral * Home Health Care (Urgent) - Closed Specialty Diagnoses / Procedures Referred By Joselito dowell Referred To Contact Home Health Services / [facility] Diagnoses Right hip pain Limited mobility Tim Moulton MD Phone: tel: fax: [facility] Home Care [facility] [address] [place] [address] Phone: tel: fax: Referral ID Status Reason Start Date Expiration Date V isits Requested Visits Authorized [id number] Closed Home Health Services 07/27/2020 08/26/2021 48 48 T SPECIALIST * Imaging (Routine) - Closed Specialty Diagnoses / Procedures Referred By Joselito dowell Referred To Contact RADIOLOGY Diagnoses Right hip pain Limited mobility Procedures MRI HIP RT WO CON Tim Moulton MD Phone: tel: fax: Referral ID Status Reason Start Date Expiration Date Visits Re quested Visits Authorized [id number] Closed 08/03/2020 11/01/2020 2 2 T SPECIALIST Encounter Details Date Type Department Care Team (Late st Contact Info) Description 07/27/2020 Insync Message Enc [facility] Family Medicine - [address] [address] Tim Moulton MD [address] [address] RE: Question Social History Tobacco [...] COVID-19? No / Unsure 07/25/2020 12:50 PM GUEST SPECIALIST documented as of this encounter Progress Notes * Tim Moulton MD - 07/27/2020 2:[address] orders for R hip and pelvis x-ray along with MRI R hip without contrast and home health order for PT due to R hip pain? Thanks. T SPECIALIST * Nevin Jiménez MA - 07/27/2020 2:46 PM CST . T SPECIALIST documented in this encounter Plan of Treatment [...] HIP RT WO CON (08/03/2020 9:53 AM GUEST SPECIALIST) Anatomical Region Laterality Modality Hip Magnetic Resonan ce 08/03/2020 10:0 9 AM GUEST SPECIALIST Impressions 08/03/2020 10:22 AM GUEST SPECIALIST IMPRESSION:===== 1. No acute findings. 2. Right [...] 08/03/2020 10:09 AM Narrative 08/03/2020 10:22 AM GUEST SPECIALIST EXAMINATION: MRI right hip without contrast. EXAM [...] Rule Out 07/18/2021 07/18/2021 07/18/2021 12:13 PM GUEST SPECIALIST Assessment Noted Time PHQ-9 Depression Total Score: 3 12/30/19 20 1:27 PM CDT documented as of this encounter Care Teams Roadway Designer Relationship Specialty Start Date End Date Tim Moulton MD PCP - General FAMILY PRACTICE 09/22/19 11/22/21 Bharat Gaytan DO [address] [place] [address] PCP - General FAMILY PRACTICE 11/23/21 05/14/22 Ricardo [place] [address] PCP - General FAMILY PRACTICE 05/21/22 03/04/23 None, MD Ronen PCP - General UNKNOWN PHYSICIAN SPECIALTY 06/11/23 09/09/23 Jeovany Zuniga MD [address] [address] PCP - General FAMILY PRACTICE 09/10/23 Bety Swift commercial illustrator (Ambulatory) REGISTERED NURSE 03/15/21 07/12/21 Mikala Pillai, RN [address] [place] [address] Finishing Manager (Ambulatory) REGISTERED NURSE 07/27/21 08/19/21 Della Marley, RN [address] [place] [address] Finishing Manager (Ambulatory) REGISTERED NURSE 12/31/21 02/26/22 documented as of this encounter
--- OUTSIDE RECORDS SUMMARY | 2024-12-12 18:18 | XMS_ITS | Encounter Summary ---
Author Organization [facility] Address [address] [place] [place] [address] Care Team Providers Care Agent Spa Desk Name Role Phone Mal Jin DO Primary Care Provider Encounter Details Date Type Department Care Team (Late st Contact Info) Description 07/03/2023 Lab Requisition [facility] - DermPath Lab [address] [facility], [place] [phone] Denae Chavez MD [address] [place] [address] Neoplasm of uncertain behavior of skin Social History Tobacco Use Types Packs/Day Years Used Date Smoking Tobacco: Never Smokeless Tobacco: Never Alcohol Use Standard Drinks/Week Comments No 0 (1 standard drink = 0.6 oz pur e alcohol) Comments No Sex and Gender Information Value Date Recorded Sex Assigned at Not on file Legal Sex Female 6:02 PM FOOD SERVICE HOTEL RUNNER Gender Identity Not on file Sexual Orientation Not on file documented as of this encounter Plan of Treatment Not on file documented as of this encounter Procedures Procedure Name Priority Date/Time Associated Diagnosis Comments DERMATOPATHOLOGY Routine 07/03/2023 3:33 AM FOOD SERVICE HOTEL RUNNER Neoplasm of uncertain behavior of skin documented in this encounter Results * DERMATOPATHOLOGY (07/03/2023 3:33 AM FOOD SERVICE HOTEL RUNNER) Case Report Dermatopathology Report Case: [id number] Authorizing Provider: Denae Chavez MD Collected: 07/03/2023 03:33 AM Ordering Location: [facility] DermPath Lab Received: 07/04/2023 04:30 PM Pathologist: Lillie Antoine MD Specimens: A) - Skin, right yazidi superior B) - Skin, right yazidi inferior C) - Skin, right superior chest D) - Skin, left forearm 4 12:12 PM [facility] [[email or web address]] DERMATOPATHOLOGY LABORATORY Final Diagnosis Specimen A. SKIN, right yazidi superior: HYPERPLASTIC (HYPERTROPHIC) ACTINIC KERATOSIS (L57.0) Specimen B. 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 The specimen consists of a shave biopsy measuring 8x7x1 mm. Jar 0. Specimen B: Received is one formalin filled container labeled with the patient's name and designated right yazidi inferior. The specimen consists of a shave [...] 16x9x1 mm. Jar 0. 4 12:12 PM [facility] [[email or web address]] DERMATOPATHOLOGY LABORATORY Microscopic Description Specimen A. SKIN, right yazidi superior: There is hyperkeratosis alternating with parakeratosis. There is epidermal hyperplasia with disorderly maturation of keratinocytes with nuclear pleomorphism confined to the lower half of the epidermis. Specimen B. SKIN, right yazidi inferior: The epidermis shows parakeratosis, full thickness [...] levels, and dyskeratotic cells. 4 12:12 PM FOOD SERVICE HOTEL RUNNER DERMATOPATHOLOGY LABORATORY Disclaimer An external and internal positive and negative controls are appropriate for the histochemical, immunohistochemical and immunofluorescence stain(s) in this case (if any), except where stated explicitly. The performance characteristics of the stain(s) cited in this report were developed and its performance characteristic determined by the Dermatopathology Laboratory at [facility], directed by Dr. Tatiana Bowers. These tests need not be, and therefore are not, approved by the [place] Food and Drug Administration. The tests are used for clinical purposes. Billing Codes Specimen Charges Stain Charges 10634 56331 31363 32500 1 1 1 1 4 12:12 PM FOOD SERVICE HOTEL RUNNER DERMATOPATHOLOGY LABORATORY Embedded Images 4 12:12 PM FOOD SERVICE HOTEL RUNNER DERMATOPATHOLOGY LABORATORY Pathology/Cytology TISSUE SPECIMEN FROM SKIN / Unknown 07/03/2023 3:33 AM FOOD SERVICE HOTEL RUNNER 07/04/2023 4:30 PM FOOD SERVICE HOTEL RUNNER Miscellaneous samples (specimen) TISSUE SPECIMEN FROM SKIN / Unknown 07/03/2023 3:33 AM FOOD SERVICE HOTEL RUNNER 07/04/2023 4:30 PM FOOD SERVICE HOTEL RUNNER Miscellaneous samples (specimen) TISSUE SPECIMEN FROM SKIN / Unknown 07/03/2023 3:33 AM FOOD SERVICE HOTEL RUNNER 07/04/2023 4:30 PM FOOD SERVICE HOTEL RUNNER Miscellaneous samples (specimen) TISSUE SPECIMEN FROM SKIN / Unknown 07/03/2023 3:33 AM FOOD SERVICE HOTEL RUNNER 07/04/2023 4:30 PM FOOD SERVICE HOTEL RUNNER us Denae Chavez MD LAB - PATHOLOGY/CYTOLOGY ORDERAB LES Final Result DERMATOPATHOLOGY LABORATORY [facility] - Department of Dermatology [facility] Medicine [address] [place] [address], [address] [phone] documented in this encounter Visit Diagnoses Diagnosis Neoplasm of uncertain behavior of skin documented in this encounter Care Teams Agent Spa Desk Relationship Specialty Start Date End Date Mal Jin DO PCP - General 06/23/19 documented as of this encounter
--- OUTSIDE RECORDS SUMMARY | 2024-12-12 18:19 | XMS_ITS | Continuity of Care Document ---
Author Organization [facility] Address [address] [place] [address] Phone Care Team Providers Care Supply Requirements Officer Name Role Phone Rakesh Mccollum DO Unavailable Unavailable Advance Directives Directive Yes / No Effective Date File Name No Information Encounters Encounter Description Practice Location Reason(s) For Visit Diagnoses Date Provider Providers [facility] [address], [place], [place], [id number], [place] tel:[phone] [facility] No Information Veda Flores. [address] [place], [address], [place]. tel: [phone] Family History Family Member Type Diagnosis Age At Onset No Information Payers Payer name Insurance type Covered green party ID Authoriza tion(s) No Information Social [...]
[2024-12-12 18:26] VITALS: BP 124/46; PULSE 64; RESP 18; TEMP 36.6; O2SAT 97
--- NOTE | 2024-12-12 18:27 | ED_ITS ---
HPI - Extremity Injury (Upper) General Chief Complaint: Extremity Injury, Upper Stated Complaint: wrist pain Patient presents to Express Care brought by family with complaints of right wrist and hand pain and swelling that began about 1 week ago. Patient does have frequent falls and with this was entered and a fall, denies any other injuries, headaches, or trauma. Patient has been applying ice to the area, lidocaine patches, in using a brace which intermittently helps with symptoms. Does have some tingling in the fingers. Related Data Home Medications ?Medication ?Instructions ?Recorded ?Confirmed ?Last Taken ?Type aspirin 81 mg tablet,delayed 81 mg PO DAILY 11/14/23 07/30/24 Unknown History release (Adult Low Dose Aspirin) Allergies Allergy/AdvReac Type Severity Reaction Status Date / Time codeine Allergy Mild Itching Verified 12/12/24 18:28 Opioids - Morphine Analogues AdvReac Severe Confusion Verified 12/12/24 18:28 Review of Systems Constitutional: Constitutional: Reports as per HPI and Denies weakness Eyes: Eyes: Reports no additional eye complaints Cardiovascular: Cardiovascular: Reports no additional cardiovascular complaints Respiratory: Respiratory: Reports no additional respiratory complaints Gastrointestinal: Gastrointestinal: Reports no additional gastrointestinal complaints Genitourinary: Genitourinary: Reports no additional female genitourinary complaints Musculoskeletal: Musculoskeletal: Reports as per HPI, Reports arthralgias and Reports joint swelling Integumentary/Breasts: Skin/Breast: Reports as per HPI, Denies erythema, Denies rash and Denies skin ulcer Neurologic: Reports as per HPI, Denies focal weakness and Denies weakness Psychiatric: Psychiatric: Reports no additional psychiatric complaints Endocrine: Endocrine: Reports no additional endocrine complaints Hematologic/Lymphatic: Hematologic/Lymphatic: Reports no additional hematologic/lymphatic complaints Allergic/Immunologic: Allergic/Immunologic: Reports no additional allergic/immunologic complaints [facility] Past Medical History Medical History Diabetic foot Lateral epicondylitis of elbow Encounter to establish care Squamous cell carcinoma of left hand High cholesterol Stroke Heart attack Anemia Surgical History Surgical History History of knee replacement procedure of left knee History of cholecystectomy H/O thyroidectomy H/O: hysterectomy Family History Family History Father No problems noted. Mother No problems noted. Sibling No problems noted. Social History Social History Smoking status: Never smoker Second hand tobacco smoke exposure: Yes Alcohol intake: former Substance use: never Do You Feel Safe in your Home?: Yes Lack of Transportation: No Lack of Food: Never True Current Housing: I Have Housing Concerned About Future Housing: No Difficulty Paying Gas/Electric Bills: No Difficulty Paying for Meds: No Currently Unemployed: No Education: Decline to Answer Difficulty w/ Childcare or Family Care: No Living arrangements: with family Occupation/Education: retired Gender identity (if verbalized by the patient): Female Spiritual care concerns: No Agree to blood products: Yes Exam Const: General: healthy appearing and no acute distress Nutritional Appearance: well nourished Orientation/consciousness: patient oriented x3 Limitations: no limitations Resp: Effort & Inspection: normal respiratory effort Auscultation: clear to auscultation bilaterally Cardio: Rate: regular rate Rhythm: regular rhythm Skin: General skin exam: normal color Rashes: no rashes Wounds: no wounds Neuro: General: patient oriented x3 and moves all extremities Speech: normal speech Gait exam (Neuro): gait abnormal (using wheelchair in Express care ) Extrem: Right upper extremity: wrist abnormal to inspection, tenderness, swelling, abnormal ROM, ecchymosis, normal vascular exam, radial pulse present and ulnar pulse present and Extremity exam: right hand abnormal to inspection, normal capillary refill, tenderness, vascular exam radial pulse present, ulnar pulse present and normal capillary refill, abnormal ROM of finger, swelling and ecchymosis Psych: Mental Status: mental status grossly normal Affect: normal affect Attitude: cooperative Course Course Level of Care: Express Care Visit Vital Signs Vital signs: Vital Signs Temperature 97.9 F 12/12/24 18:26 Pulse Rate 64 12/12/24 18:26 Respiratory Rate 18 12/12/24 18:26 Blood Pressure 124/46 L 12/12/24 18:26 Pulse Oximetry 97 12/12/24 18:26 Oxygen Delivery Room Air 12/12/24 18:26 Temperature 97.9 F 12/12/24 18:26 Pulse Rate 64 12/12/24 18:26 Respiratory Rate 18 12/12/24 18:26 Blood Pressure 124/46 L 12/12/24 18:26 Pulse Oximetry 97 07/20/25 18:26 Oxygen Delivery Room Air 12/12/24 18:26 MDM - Extremity Injury (Upper) MDM Narrative Medical decision making narrative: X-rays in hand and wrist ordered. Patient declined ice pack well at [facility]. patient requested medication for pain. Tolerated tramadol the past. Discharge instructions reviewed with patient, as well as provided in writing per nursing staff. The instructions also include specific and strict return/GO TO THE ER as well as f/u information. All questions have been answered, and the patient deny any further questions with discharge and discharge plan. Differential Diagnosis Differential diagnosis: Likely sprain and strain of wrist, fracture of wrist, finger sprain, dislocation of finger and fracture of hand Medical Records Attestation: I reviewed the patient's medical records. Imaging Data Attestation: I personally reviewed and interpreted this imaging study as follows: My impression: concern for ulnar fracture Radiologist's impression: IMPRESSION: No acute osseous finding in the right hand or wrist. Reviewed, dictated and finalized at location K. Discharge Plan Discharge Clinical Impression: Multiple falls, Sprain and strain of right wrist Patient Disposition: Home Condition: Stable Instructions: Antibiotic Form, Fall Prevention for Older Adults (ED), Arthralgia (ED), Arthritis (ED) Additional Instructions: Xray showed no fracture. Minimize activities that aggravate the condition The RICE protocol. Follow the RICE protocol as soon as possible after your injury: Rest your Wrist using the brace as needed. Ice should be immediately applied to keep the swelling down. It can be used for 20 to 30 minutes, three or four times daily. Do not apply ice directly to your skin. Compression dressings, bandages or sunita-wraps will immobilize and support your injured Wrist. Elevate your rest above the level of your heart as often as possible during the first 48 hours. Medication: Nonsteroidal anti-inflammatory drugs (NSAIDs) such as ibuprofen and naproxen can help control pain and swelling. Because they improve function by both reducing swelling and controlling pain, they are a better option for mild sprains than narcotic pain medicines. Please schedule a follow-up visit with your personal physician for further evaluation and treatment within 1week OR If your symptoms persist, change or worsen significantly before you can contact your personal physician then please, without delay, go to the emergency department for further evaluation. Patient Language: Citizen Of [place] Prescriptions: New tramadol 50 mg tablet 50 mg PO Q6H PRN (Reason: pain) Qty: 20 0RF No Action meclizine 25 mg tablet 25 mg PO TID PRN (Reason: dizziness) Qty: 30 0RF aspirin [Adult Low Dose Aspirin] 81 mg tablet,delayed release (DR/EC) 81 mg PO DAILY (DME) Contour Next Test Strips Strip See Rx Instructions .Route Qty: 50 0RF Rx Instructions: As directed daily dapagliflozin propanediol [Farxiga] 10 mg tablet 10 mg PO DAILY Qty: 90 1RF (DME) lancets 31 gauge misc See Rx Instructions .Route Qty: 100 1RF Rx Instructions: As directed with blood glucose monitoring TID levothyroxine 88 mcg tablet 88 mcg PO DAILY Qty: 90 0RF potassium chloride 10 mEq tablet extended release See Rx Instructions .ROUTE .COMPLEX Qty: 90 1RF Dose Instruction: TAKE 1 TABLET BY MOUTH EVERY DAY Rx Instructions: TAKE 1 TABLET BY MOUTH EVERY DAY Tradjenta 5 mg tablet 5 mg PO QAM Qty: 90 0RF (DME) blood-glucose meter [Contour Next Meter] Misc See Rx Instructions .Route Qty: 1 0RF Rx Instructions: As directed metoprolol succinate 25 mg tablet extended release 24 hr 25 mg PO DAILY Qty: 90 0RF gabapentin 300 mg capsule See Rx Instructions .ROUTE .COMPLEX Qty: 90 1RF Dose Instruction: TAKE 1 CAPSULE BY MOUTH 3 TIMES A DAY Rx Instructions: TAKE 1 CAPSULE BY MOUTH 3 TIMES A DAY amlodipine [Norvasc] 5 mg tablet 5 mg PO DAILY Qty: 90 1RF lisinopril 40 mg tablet See Rx Instructions .ROUTE .COMPLEX Qty: 90 1RF Dose Instruction: TAKE 1 TABLET BY MOUTH EVERY DAY FOR BLOOD PRESSURE Rx Instructions: TAKE 1 TABLET BY MOUTH EVERY DAY FOR BLOOD PRESSURE furosemide 20 mg tablet See Rx Instructions .ROUTE .COMPLEX Qty: 90 1RF Dose Instruction: TAKE 1 TABLET BY MOUTH EVERY MORNING Rx Instructions: TAKE 1 TABLET BY MOUTH EVERY MORNING Follow-up/Referrals: Jeovany Zuniga MD [Primary Care Provider] - Time of Disposition: 19:22
== END 2024-12-12 19:24 | disposition home or self-care (01) ==
PROVIDERS: Emergency Provider Nurse Practitioner Family; PCP Family Medicine
DX: S63.501A Unspecified sprain of right wrist, initial encounter (principal); S66.911A Strain of unspecified muscle, fascia and tendon at wrist and hand level, right hand, initial encounter; W19.XXXA Unspecified fall, initial encounter; E78.00 Pure hypercholesterolemia, unspecified; E11.9 Type 2 diabetes mellitus without complications; Z79.84 Long term (current) use of oral hypoglycemic drugs; I25.2 Old myocardial infarction; Z86.73 Personal history of transient ischemic attack (TIA), and cerebral infarction without residual deficits; Z85.828 Personal history of other malignant neoplasm of skin; Z79.82 Long term (current) use of aspirin
CPT/HCPCS: 73110; 73130; 99213; G0463

== ENCOUNTER 2025-03-11 21:50 | Emergency (ER) | payer OTHER, SELFPAY ==
--- OUTSIDE RECORDS SUMMARY | 2002-02-22 10:30 | XMS_ITS | Continuity of Care Document ---
Author Organization [facility] Address [address] [place] [address] Phone Care Team Providers Care Wet Plant Operator Name Role Phone Rakesh Mccollum DO Unavailable Unavailable Advance Directives Directive Yes / No Effective Date File Name No Information Encounters Encounter Description Practice Location Reason(s) For Visit Diagnoses Date Provider Providers [facility] [address], [place], [place], [id number], [place] tel:[phone] [facility] No Information Veda Flores. [address] [place], [address], [place]. tel: [phone] Family History Family Member Type Diagnosis Age At Onset No Information Payers Payer name Insurance type Covered alliance party ID Authoriza tion(s) No Information Social History Type Description Quantity Date Captured Comments Sex Female Smoking Status No Information Chief Complaint And Reason For Visit No Information Reason For Referral Reason For Referral No Information History Of Present Illness Encounter Date Complaint History Of Prese nt Illness No Information Functional Status Date Functional Assessmen t No Information Instructions Date Instruction Additional Infor mation No Information Assessments Type Assessment Date No Information Patient Care Teams Name Effective Dates (start - stop) Status Members No Information
--- OUTSIDE RECORDS SUMMARY | 2024-02-26 09:20 | XMS_ITS ---
Author Organization 1 OF Loren payan [facility] Address [address] [place] [address] Care Team Providers Care Heart Nurse Name Role Phone Nadia HOLM, Jeovany Primary Care Provider Gavino Noble [phone] REASON FOR VISIT DFC (Diabetic foot care) Encounters Encounter Location Date Provider Diagnosis 1 OF Loren Hubbard [facility] [address] [place] [address] 02/26/2024 Gavino Hubbard Onychogryphosis L60.2 and Diabetic peripheral neuropathy E11.42 Assessments Encounter Date Diagnosis (ICD Code) Assessment Notes Treatment Notes Treatment Clinical Notes Section Notes 02/26/2024 Onychogryphosis (ICD-10 - L60.2) 02/26/2024 Diabetic peripheral neuropathy (ICD-10 - E11.42) Considering the associated comorbidities and physical exam findings today, this patient is at substantial risk of developing serious foot complications in the absence of regular and professional palliative foot care. Plan Of Treatment Treatment Notes Assessment Notes Diabetic peripheral neuropathy Consideri ng the associated comorbidities and physical exam findings today, this patient is at substantial risk of developing serious foot complications in the absence of regular and professional palliative foot care. Next Appt Details Follow Up: 10-12 weeks or co ntact office PRN with any concerns, Reason: Provider Name:Gavino Hubbard, 2025 11:20:00 AM, [address], [place], [address], Procedure Notes * Category Sub-Category Detail Notes PALLIATIVE FOOT CARE: Nail debride (48014): Debr idement of at least six mycotic and/or hypertrophic nails performed:, utilizing manual and electric debridement the affected nails were reduced the nails in length and thickness with curettage of debris from nail margins performed as needed. Nail thickness reduced by:, 10% History and Physical Notes * HPI (History of Present Illness) Category Sub-Category Detail Notes Category Not es Primary reason for visit: 83 y/o diabetic female RTO for diabetic foot care. Patient reports no acute issues with nails or calluses today. MA assisting with visit: HPI/Rooming: Odalys Examination Category Sub-Category Detail Notes Category Not es General Examination Mental status: Shoes today: , XXXXXX Ambulatory assistive device: wheeled wal ker Constitutional / Appearance: Appropriate personal hygiene , Relatively frail , Relatively deconditioned Lower Extremity VASCULAR: Pulses: DP pul se nonpalpable b/l, PT pulse nonpalpable b/l Temperature gradient: decreased from pro ximal to distal bilateral Pedal hair: sparse / absent bila teral Lower Extremity NEURO: Monofilament test (10 gram pressure) Exam of 06/26/2023:, - - revealed absent sensation to at least two distinct locations of, entire foot, bilateral Vibration perception: Exam of 06/26/2023 : - - noted absent per evaluation with 128Hz tuning fork applied to distal hallux compared to ipsilateral medial malleolus , @ bilateral feet General sensation appears diminished, to sharp stimuli. , bilateral Muscle tone diminished bilateral Lower Extremity MSK: Left lower extremit y inspection and palpation: No palpable masses or nodules noted. Right lower extremity inspection and pal pation: No palpable masses or nodules noted. Diagnostic Studies: X-rays of right lowe r extremity: Lower Extremity DERM: Skin: relatively dry, thin, atrophic, no suspicious lesions, bilateral Nails: Nail plates of: TA-T 9 appear relatively thickened, dystrophic, discolored, incurvated. Hyperkeratotic lesions LEFT foot: no sig nificant hpk lesions noted Hyperkeratotic lesions RIGHT foot: no si gnificant hpk lesions noted Progress Notes * Ban GARRISONDOB: 0 (84 yo F)Acc No.[id number]:02/26/2024 Progress Note Patient: S harry, Ban Account Number: Provider: Loren Hubbard DPM :1940 A ge:83 Y S ex:Female Date:02/26/2024 Address:[address], [place], [place] Pcp:Jeovany Zuniga MD Subjective: * Chief Complaints: * D FC (Diabetic foot care) * HPI: M A assisting with visit:: HPI/Rooming: Jose D Hopkins [facility] reason for visit:: 83 y/o diabetic female RTO for diabetic foot care. Patient reports no acute issues with nails or calluses today. Objective: * Examination: G eneral Examination: Constitutional / Appearance: A ppropriate personal hygiene , Relatively frail , Relatively deconditioned. Ambulatory assistive device: wheeled walker. Shoes today: , XXXXXX. L ower Extremity VASCULAR: : Pulses: D P pulse nonpalpable b/l, PT pulse nonpalpable b/l. Temperature gradient: decreased from proximal to distal bilateral. Pedal hair: s parse / absent bilateral. ? L ower Extremity DERM: : Skin: r elatively dry, thin, atrophic, no suspicious lesions, bilateral. Nails: N ail plates of:TA-M0poflwp relatively thickened, dystrophic, discolored, incurvated.. Hyperkeratotic lesions LEFT foot: no significant hpk lesions noted. Hyperkeratotic lesions RIGHT foot: n o significant hpk lesions noted. L ower Extremity NEURO: : General sensation appears diminished, to sharp stimuli. , bilateral. Muscle tone d iminished bilateral. Monofilament test (10 gram pressure) E xam of 06/26/2023:, - - revealed absent sensation to at least two distinct locations of, entire foot, bilateral. Vibration perception: E xam of 06/26/2023: - - noted absent per evaluation with 128Hz tuning fork applied to distal hallux compared to ipsilateral medial malleolus , @ bilateral feet . L ower Extremity MSK: : Left lower extremity inspection and palpation: N o palpable masses or nodules noted.. Right lower extremity inspection and palpation: N o palpable masses or nodules noted. . Assessment: * Assessment: 1. D iabetic peripheral neuropathy - E11.42 (Primary) 2 . O nychogryphosis - L60.2 Plan: * Treatment: * Procedures: P ALLIATIVE FOOT CARE:: Nail debride (57143): D ebridement of at least six mycotic and/or hypertrophic nails performed:, utilizing manual and electric debridement the affected nails were reduced the nails in length and thickness with curettage of debris from nail margins performed as needed. Nail thickness reduced by:, 10%. * Follow Up: 1 0-12 weeks or contact office PRN with any concerns Billing Information: * Procedure Codes: 62026 DEBRIDE NAIL, 6 OR MORE. Modifiers: Q8 * Electronic signature of Dana Hubbard DPM on 03/11/2025 at 11:46 PM CDT Sign off status: Pending * Provider: Loren Hubbard DPM Date: Generated for Carloz Portillo/Jett on: 11:46 PM CDT
--- OUTSIDE RECORDS SUMMARY | 2024-04-13 06:20 | XMS_ITS ---
Author Organization 1 OF Loren payan [facility] Address [address] [facility] [address] [place] [address] Care Team Providers Care Buttermaker Name Role Phone Nadia HOLM, Jeovany Primary Care Provider Gavino Noble Unavailable REASON FOR VISIT DFC (Diabetic foot care) Encounters Encounter Location Date Provider Diagnosis 1 OF Loren Hubbard [facility] [address] [facility] [address] [place] [address] 04/13/2024 Gavino Hubbard Plan Of Treatment Next Appt Details Provider Name:Gavino Hubbard, 2025 11:20:00 AM, [address], [facility] [address], [place], [address], Progress Notes * BLADIMIR BanDOB: 0 (84 yo F)Acc No.[id number]:04/13/2024 Progress Note Patient: Ban Oreilly Provider: Loren Hubbard DPM :1940 A ge:83 Y S ex:Female Date:04/13/2024 Address:[address] [place], [place] Pcp:Jeovany Zuniga MD Subjective: * Chief Complaints: * D FC (Diabetic foot care) * Electronic signature of Dana Hubbard DPM on 03/11/2025 at 11:45 PM CDT Sign off status: Pending * Provider: Loren Hubbard DPM Date: 06/13/2023 Generated for Carloz torres/Mignon/Jett on: 11:45 PM CDT
--- OUTSIDE RECORDS SUMMARY | 2024-07-12 09:10 | XMS_ITS ---
Author Organization 1 OF Loren payan [facility] Address [address] [address] Care Team Providers Care University Demonstrator Name Role Phone Nadia HOLM, Jeovany Primary Care Provider Gavino Noble Unavailable REASON FOR VISIT DFC (Diabetic foot care) Encounters Encounter Location Date Provider Diagnosis 1 OF Loren Hubbard [facility] [address] [address] 07/12/2024 Gavino Hubbard Onychogryphosis L60.2 ; Diabetic peripheral neuropathy E11.42 ; Right foot pain M79.671 and Plantar fasciitis of right foot M72.2 Assessments Encounter Date Diagnosis (ICD Code) Assessment Notes Treatment Notes Treatment Clinical Notes Section Notes 07/12/2024 Onychogryphosis (ICD-10 - L60.2) 07/12/2024 Diabetic peripheral neuropathy (ICD-10 - E11.42) Considering the associated comorbidities and physical exam findings today, this patient is at substantial risk of developing serious foot complications in the absence of regular and professional palliative foot care. 07/12/2024 Right foot pain (ICD-10 - M79.671) 07/12/2024 Plantar fasciitis of right foot (ICD-10 - M72.2) Plan Of Treatment Treatment Notes Assessment Notes [...] Provider Name:Gavino Hubbard, 2025 11:20:00 AM, [address], [place], [address], Procedure Notes * Category Sub-Category Detail Notes PALLIATIVE FOOT CARE: Nail debride (05586): Debr idement of at least six mycotic and/or hypertrophic nails performed:, utilizing manual and electric debridement the affected nails were reduced the nails in length and thickness with curettage of debris from nail margins performed as needed. Nail thickness reduced by:, 10% History and Physical Notes * HPI (History of Present Illness) Category Sub-Category Detail Notes Category Not es Primary reason for visit: 84 y/o diabetic female RTO for diabetic foot care. Patient reports no acute issues with nails or calluses today MA assisting with visit: HPI/Rooming: ..... Chart Prep Odalys Examination Category Sub-Category Detail Notes Category [...] Lower Extremity NEURO: Monofilament test (10 gram pres sure) Exam of 07/12/2024 Vibration perception: Exam of 07/12/2024 General sensation appears diminished, to sharp stimuli. , bilateral Muscle tone diminished bilateral Lower Extremity MSK: Plantar fasciosis: Right fo ot exhibits, + POP of the, medial, band of the plantar fascia at plantar heel., Negative, pain with lateral compression of calcaneus., Negative, pain with palpation of posterior heel / Achilles tendon insertion, Negative, pain / paresthesia noted with palpation of tarsal tunnel. Left lower extremity inspection and palp ation: No palpable masses or nodules noted. Right [...] * Ban GARRISONDOB: 0 (84 yo F)Acc No.[id number]:07/12/2024 Progress Note Patient: Ban Oreilly Provider: Loren Hubbard DPM :1940 A ge:84 Y S ex:Female Date:07/12/2024 Address:[address], [place], [place] [address] Pcp:Jeovany Zuniga MD Subjective: * Chief Complaints: * D FC (Diabetic foot care) * HPI: Sara Mcgill assisting with visit:: Chart Prep L kevyn. HPI/Rooming: . ..... P rimtillman reason for visit:: 84 y/o diabetic female RTO for diabetic foot [...] suspicious lesions, bilateral. Nails: N ail plates of:TA-Y1crrmsz relatively thickened, dystrophic, discolored, incurvated.. Hyperkeratotic lesions LEFT foot: no significant hpk lesions noted. Hyperkeratotic lesions RIGHT foot: n o significant hpk lesions noted. L ower Extremity NEURO: : General sensation appears diminished, to sharp stimuli. , bilateral. Muscle tone d iminished bilateral. Monofilament test (10 gram pressure) E xam of 07/12/2024.? Vibration perception: E xam of 07/12/2024. ? L ower Extremity MSK: : Left lower extremity inspection and palpation: N o palpable masses or nodules noted.. Right lower extremity inspection and palpation: N o palpable masses or nodules noted. . Plantar fasciosis: R ight foot exhibits, + POP of the, medial, band of the plantar fascia at plantar heel., Negative, pain with lateral compression of calcaneus., Negative, pain with palpation of posterior heel / Achilles tendon insertion, Negative, pain / paresthesia noted with palpation of tarsal tunnel.. Assessment: * Assessment: 1. D iabetic peripheral neuropathy - E11.42 (Primary) 2 . O nychogryphosis - L60.2 3 . R ight foot pain - M79.671 4 . P lantar fasciitis of right foot - M72.2 Plan: * Treatment: * Procedures: P ALLIATIVE FOOT CARE:: Nail debride (97977): D ebridement of at least six mycotic and/or hypertrophic nails performed:, utilizing manual and electric debridement the affected nails were reduced the nails in length and thickness with curettage of debris from nail margins performed as needed. Nail thickness reduced by:, 10%. * Follow Up: 1 0-12 weeks or contact office PRN with any concerns Billing Information: * Procedure Codes: 27009 DEBRIDE NAIL, 6 OR MORE. Modifiers: Q8 * Electronic signature of Dana Hubbard DPM on 03/11/2025 at 11:45 PM CDT Sign off status: Pending * Provider: Loren Hubbard DPM Date: 0 07/12/2024 Generated for Carloz torres/Mignon/Jett on: 1 11:45 PM CDT
--- OUTSIDE RECORDS SUMMARY | 2024-10-08 06:10 | XMS_ITS ---
Author Organization 1 OF Loren payan [facility] Address [address] [place] [address] Care Team Providers Care Propellant Charge Loader Name Role Phone Nadia HOLM, Jeovany Primary Care Provider Gavino Noble REASON FOR VISIT DFC (Diabetic foot care) Encounters Encounter Location Date Provider Diagnosis 1 OF Loren Hubbard [facility] [address] [place] [address] 10/08/2024 Gavino Hubbard Onychogryphosis L60.2 and Diabetic peripheral neuropathy E11.42 Assessments Encounter Date Diagnosis (ICD Code) Assessment Notes Treatment Notes Treatment Clinical Notes Section Notes 10/08/2024 Onychogryphosis (ICD-10 - L60.2) 10/08/2024 Diabetic peripheral neuropathy (ICD-10 - E11.42) Considering [...] Provider Name:Gavino Hubbard, 2025 11:20:00 AM, [address], [place], [address], Procedure Notes * Category Sub-Category Detail Notes PALLIATIVE FOOT CARE: Nail debride (58631): Debr idement of at least six mycotic [...] today. MA assisting with visit: HPI/Rooming: , ..... Chart Prep , Alexa Examination Category Sub-Category Detail Notes Category Not [...] gnificant hpk lesions noted Progress Notes * Vidya GARRISON: 0 (84 yo F)Acc No.[id number]:10/08/2024 Progress Note Patient: S need, Bna Provider: Loren Hubbard DPM :1940 A ge:84 Y S ex:Female Date:10/08/2024 Address:[address], [place], [place] Pcp:Jeovany Zuniga MD Subjective: * Chief Complaints: * D FC (Diabetic foot care) * HPI: M A assisting with visit:: Chart Prep Alexa. HPI/Rooming: , ...... [place] reason for visit:: 84 y/o diabetic female [...] suspicious lesions, bilateral. Nails: N ail plates of:[id number] relatively thickened, dystrophic, discolored, incurvated.. Hyperkeratotic lesions [...] mild h ammertoes. Assessment: * Assessment: 1. D iabetic peripheral neuropathy - E11.42 (Primary) 2 . O nychogryphosis - L60.2 Plan: * Treatment: * Procedures: P ALLIATIVE FOOT CARE:: Nail debride (81790): D ebridement of at least six mycotic and/or hypertrophic nails performed:, utilizing manual and electric debridement the affected nails were reduced the nails in length and thickness with curettage of debris from nail margins performed as needed. Nail thickness reduced by:, 10%. * Preventive Medicine: Counseling: C are goal follow-up plan: BMI counseling provided to patient:?Lifestyle education Screenings: F ALL RISK SCREENING Fall Risk Assessment: N o falls in the past year * Follow Up: 1 0-12 weeks or contact office PRN with any concerns Billing Information: * Procedure Codes: 02922 DEBRIDE NAIL, 6 OR MORE. Modifiers: Q8 * Electronic signature of Dana Hubbard DPM on 03/11/2025 at 11:45 PM CDT Sign off status: Pending * Provider: Loren Hubbard DPM Date: 0 10/08/2024 Generated for Carloz torres/Mignon/Jett on: 1 11:45 PM CDT
--- OUTSIDE RECORDS SUMMARY | 2024-12-17 06:30 | XMS_ITS ---
Author Organization 1 OF [facility] Address [address] [facility] [address] [place] [address] Care Team Providers Care Practice Support Specialist Name Role Phone Nadia HOLM, Jeovany Primary Care Provider Gavino Noble Unavailable REASON FOR VISIT DFC (Diabetic foot care) Encounters Encounter Location Date Provider Diagnosis 1 OF [facility] [address] [facility] [address] [place] [address] 12/17/2024 Gavino Hubbard Plan Of Treatment Next Appt Details Provider Name:Gavino Hubbard, 2025 11:20:00 AM, [address], [facility] [address], [place], [address], Progress Notes * Ban GARRISONDOB: 0 (84 yo F)Acc No.[id number]:12/17/2024 Progress Note Patient: Ban Oreilly Provider: Loren [facility] :1940 A ge:84 Y S ex:Female Date:12/17/2024 Address:[address] [place], [place] Pcp:Jeovany Zuniga MD Subjective: * Chief Complaints: * D FC (Diabetic foot care) * Electronic signature of Dana Hubbard DPM on 03/11/2025 at 11:45 PM CDT Sign off status: Pending * Provider: Loren [facility] Date: 0 12/17/2024 Generated for Carloz torres/Mignon/Jett on: 1 11:45 PM CDT
--- NOTE | ~2025-03-11 | CT_ITS ---
EXAMINATION: CT facial bones w con DATE: 03/12/2025 01:22 INDICATION: Right jaw and ear pain. TECHNIQUE: Computed tomography (CT) of the facial bones and maxillofacial region was performed with 75 mL Omnipaque 350 intravenous contrast. FINDINGS: There are likely changes of ocular lens replacement surgeries. There is mild mucosal thickening in the paranasal sinuses. There is rightward deviation of the nasal septum. The mastoid air cells are normal. 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 Right masseter muscle and right lateral pterygoid muscle are mildly larger than the left. There is severe cervical spondylosis. IMPRESSION: 1. 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 2. Right masseter muscle and right lateral pterygoid muscle are mildly larger than the left of uncertain clinical significance. Reviewed, dictated and finalized at location E. IMPRESSION: 1. 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 2. Right masseter muscle and right lateral pterygoid muscle are mildly larger [place] the left of uncertain clinical significance.
--- NOTE | ~2025-03-11 | CT_ITS ---
EXAMINATION: CT brain wo con DATE: 03/12/2025 01:22 INDICATION: Sinusitis. TECHNIQUE: Computed tomography (CT) of the head was performed without intravenous contrast. The mA was adjusted according to patient size. Iterative reconstruction technique was employed. The dose-length product was 605.33 mGy-cm. COMPARISON: Brain MRI 03/05/2023 FINDINGS: There are scattered areas of low attenuation in the cerebral white matter. There are old infarcts in the bilateral basal ganglia. There is no intracranial hemorrhage, acute infarction, or abnormal intracranial mass lesion. The ventricles are dilated out of proportion to the size of the sulci. There is mild mucosal thickening in the paranasal sinuses. There is rightward deviation of the nasal septum. There are likely changes of ocular lens replacement surgeries. The mastoid air cells are normal. IMPRESSION: 1. Old infarcts in the bilateral basal ganglia. 2. Mild nonspecific cerebral white matter disease, which likely represents chronic small vessel ischemic disease. 3. Chronic ventriculomegaly. Correlate clinically for normal pressure hydrocephalus. Reviewed, dictated and finalized at location E. IMPRESSION: 1. Old infarcts in the bilateral basal ganglia. 2. Mild nonspecific cerebral white matter disease, which likely represents claims adjudicator elvis small vessel ischemic disease. 3. Chronic ventriculomegaly. Correlate clinically for normal pressure hydroceph alus.
--- OUTSIDE RECORDS SUMMARY | 2025-03-11 06:20 | XMS_ITS ---
Author Organization 1 OF Loren [facility] Address [address] [place] [address] Care Team Providers Care Plastic Dolls Mold Filler Name Role Phone Nadia HOLM, Jeovany Primary Care Provider Gavino Noble [phone] REASON FOR VISIT SHOE measuring Encounters Encounter Location Date Provider Diagnosis 1 OF [facility] [address] [place] [address] 03/11/2025 Gavino Hubbard Diabetic peripheral neuropathy E11.42 Assessments Encounter Date Diagnosis (ICD Code) Assessment Notes Treatment Notes Treatment Clinical Notes Section Notes 03/11/2025 Diabetic peripheral neuropathy (ICD-10 - E11.42) Plan Of Treatment Next Appt Details Follow Up: when diabetic belinda e available for dispensing or PRN with any concerns. , Reason: Provider Name:Gavino Hubbard, 2025 11:20:00 AM, [address], [facility] [address], [facility], [address], Procedure Notes * Category Sub-Category Detail Notes DIABETIC SHOES Measuring for shoes / inserts: E valuation and measurement for diabetic shoes / inserts performed by , (See diabetic shoe paperwork for details of measurements and information regarding shoes and inserts ordered), A Factery device was utilized to obtain foot measurements, The shoes / inserts will be ordered and upon delivery to our office the patient will be contacted to schedule fitting and dispensing. History and Physical Notes * HPI (History of Present Illness) Category Sub-Category Detail Notes Category Not es Primary reason for visit: Diabetic Shoe Measurement: Patient RTO to be measured for diabetic shoes. Patient's paperwork has been completed by PCP and patient reports no changes or concerns. Examination Category Sub-Category Detail Notes Category Not es General Examination Patient evaluated by MA for purpose of measuring for diabetic shoes and inserts. No acute abnormalities noted during exam. See diabetic shoe paperwork for details of measurements. Progress Notes * Ban GARRISONDOB: 0 (84 yo F)Acc No.[id number]:03/11/2025 Progress Note Patient: Ban Oreilly Provider: Loren [facility] DPM :1940 A ge:84 Y S ex:Female Date:03/11/2025 Address:[address] [place] [address], [place] [address] Pcp:Jeovany Zuniga MD Subjective: * Chief Complaints: * 1 . SHOE measuring. * HPI: P rimary reason for visit:: Diabetic Shoe Measurement: P atient RTO to be measured for diabetic shoes. Patient's paperwork has been completed by PCP and patient reports no changes or concerns. . Objective: * Examination: G eneral Examination: P atient evaluated by MA for purpose of measuring for diabetic shoes and inserts. No acute abnormalities noted during exam. See diabetic shoe paperwork for details of measurements. Assessment: * Assessment: 1. D iabetic peripheral neuropathy - E11.42 (Primary) Plan: * Procedures: D IABETIC SHOES: Measuring for shoes / inserts: E valuation and measurement for diabetic shoes / inserts performed by MA., (See diabetic shoe paperwork for details of measurements and information regarding shoes and inserts ordered), A Factery device was utilized to obtain foot measurements, The shoes / inserts will be ordered and upon delivery to our office the patient will be contacted to schedule fitting and dispensing. . * Follow Up: w hen diabetic shoe available for dispensing or PRN with any concerns. Billing Information: * Procedure Codes: * Sign off status: Completed true * Provider: Loren [facility] Date: 1 Generated for Carloz torres/Mignon/Jett on: 1 11:45 PM CDT
[2025-03-11 21:51] VITALS: BP 182/62; PULSE 67; RESP 16; TEMP 36.7; O2SAT 96
--- NOTE | 2025-03-11 23:06 | ED.EAR ---
HPI - Ear Problem General Chief complaint: Ear Stated complaint: ear pain Time Seen by Provider: 03/11/25 22:57 Source: patient Mode of arrival: ambulatory Limitations: no limitations History of Present Illness HPI Narrative: This is a 84 year old female that presents to the ER for right ear pain, jaw pain. Reports she was seen by her PCP on Friday and started on Cefdinir for otitis media. Initially thought she was having improvement. Reports worsening pain tonight which prompted her to be seen. Denies fevers. Related Data Allergies Allergy/AdvReac Type Severity Reaction Status Date / Time codeine Allergy Mild Itching Verified 12/17/24 11:42 Opioids - Morphine Analogues AdvReac Severe Confusion Verified 12/17/24 11:42 tramadol AdvReac Unknown Verified 12/17/24 11:42 Review of Systems Review of Systems: All systems reviewed & are unremarkable except as noted in HPI and below PMFSH Past Medical History Medical History Right otitis media Right flank pain Finger joint swelling Warmth of joint Positive fecal occult blood test UTI (urinary tract infection) UTI symptoms Diabetic foot Lateral epicondylitis of elbow Encounter to establish care Squamous cell carcinoma of left hand High cholesterol Stroke Heart attack Anemia Surgical History Surgical History History of knee replacement procedure of left knee History of cholecystectomy H/O thyroidectomy H/O: hysterectomy Family History Family History Father No problems noted. Mother No problems noted. Sibling No problems noted. Social History Social History Smoking status: Never smoker Second hand tobacco smoke exposure: Yes Alcohol intake: former Substance use: never Do You Feel Safe in your Home?: Yes Lack of Transportation: No Lack of Food: Never True Current Housing: I Have Housing Concerned About Future Housing: No Difficulty Paying Gas/Electric Bills: No Difficulty Paying for Meds: No Currently Unemployed: No Education: Decline to Answer Difficulty w/ Childcare or Family Care: No Living arrangements: with family Occupation/Education: retired Gender identity (if verbalized by the patient): Female Spiritual care concerns: No Agree to blood products: Yes Exam Narrative: GENERAL: Elderly, well-nourished, and in no acute distress. HEAD: Normocephalic, atraumatic. EYES: PERRLA and EOMI. ENT: Nares clear, no rhinorrhea or epistaxis. Mucous membranes moist. Oropharynx without tonsillar hypertrophy exudate or other lesions. Bilateral TMs pearly sher non-bulging. No mastoid erythema or tenderness. Mild swelling about the right TMJ without overlying erythema NECK: Supple. No adenopathy or masses. CHEST: Clear to auscultation. No respiratory distress. No wheezes rales or rhonchi HEART: Regular rate and rhythm. No murmur heard. Normal peripheral pulses. EXTREMITIES: Normal range of motion. No edema. SKIN: Warm, dry, no rash. NEURO: No focal deficits. Alert and oriented x3. CN II-XII grossly intact PSYCH: Normal mood and affect Course Course Emergency Course: patient and family updated on workup Vital Signs Vital signs: Vital Signs Temperature 98.1 F 03/11/25 21:51 Pulse Rate 67 03/11/25 21:51 Respiratory Rate 16 03/11/25 21:51 Blood Pressure 182/62 H 03/11/25 21:51 Pulse Oximetry 96 03/11/25 21:51 Oxygen Delivery Room Air 03/11/25 21:51 Temperature 98.1 F 03/11/25 21:51 Pulse Rate 67 03/11/25 21:51 Respiratory Rate 16 03/11/25 21:51 Blood Pressure 182/62 H 03/11/25 21:51 Pulse Oximetry 96 03/11/25 21:51 Oxygen Delivery Room Air 03/11/25 21:51 Medical Decision Making [facility] Narrative Medical decision making narrative: Patient presents the emergency department for right ear, right jaw pain. Recently seen by PCP is started on cefdinir for otitis media. She is afebrile and nontoxic appearing. CBC does show leukocytosis to 13.5. Inflammatory markers are elevated. Kidney function is normal. Patient has some mild swelling noted over the right TMJ. No overlying erythema. TMs/external auditory canals are normal on exam today. No mastoid erythema or tenderness. CT brain is without acute findings. CT facial bones showing degenerative changes of the temporomandibular joints. Asymmetric enlargement of the right masseter and pterygoid muscles. Patient and family updated on workup and agree with plan of care. Will be given further follow-up with ENT. They were given warnings to return to the ER Differential Diagnosis Differential Diagnosis: TMJ disorder, otitis media, ondontogenic infection Vital Signs Vital Signs: Vital Signs Temperature 98.1 F 03/11/25 21:51 Pulse Rate 67 03/11/25 21:51 Respiratory Rate 16 03/11/25 21:51 Blood Pressure 182/62 H 03/11/25 21:51 Pulse Oximetry 96 03/11/25 21:51 Oxygen Delivery Room Air 03/11/25 21:51 Temperature 98.1 F 03/11/25 21:51 Pulse Rate 67 03/11/25 21:51 Respiratory Rate 16 03/11/25 21:51 Blood Pressure 182/62 H 03/11/25 21:51 Pulse Oximetry 96 03/11/25 21:51 Oxygen Delivery Room Air 03/11/25 21:51 Lab Data Lab results reviewed: Yes I reviewed the patient's lab results. 03/12/25 01:00 03/11/25 23:35 Labs: Lab Results 03/11/25 03/12/25 Range/Units 23:35 01:00 WBC 13.5 H (4.5-10.0) K/mm3 RBC 4.15 L (4.2-5.4) M/mm3 Hgb 11.7 L (12.0-15.0) g/dL Hct 36.3 L (37.0-47.0) % MCV 87.5 (80-100) fl MCH 28.2 (26-34) pg MCHC 32.2 (32-36) g/dl RDW 13.2 (11.5-14.5) % Plt Count 249 (150-375) k/mm3 MPV 10.6 H (7.4-10.4) fl Immature Gran % (Auto) 0.3 (0-0.5) % Neut % (Auto) 63.7 (45.5-73.1) % Lymph % (Auto) 24.5 (18.3-44.2) % [facility] % (Auto) 10.4 H (2.6-8.5) % Eos % (Auto) 0.7 (0-4.4) % Baso % (Auto) 0.4 (0.2-1.2) % Lymph # (Auto) 3.31 H (0.9-3.2) K/mm3 [facility] # (Auto) 1.4 H (0.1-0.6) K/mm3 Eos # (Auto) 0.1 (0-0.3) K/mm3 Baso # (Auto) 0.1 (0.0-0.1) K/mm3 Abs Immat Gran (auto) 0.04 H (0.00-0.031) K/mm3 Absolute Neuts (auto) 8.6 H (1.3-6.7) K/mm3 Absolute Nucleated RBC 0.000 (0.0-0.012) K/mm3 Nucleated RBC % 0.0 (0.0-0.2) % ESR 83 H (0-20) mm/hr Sodium 138 (137-145) mmol/L Potassium 3.7 (3.4-5.0) mmol/L Chloride 103 (98-107) mmol/L Carbon Dioxide 26 (22-30) mmol/L Anion Gap 9 (4-12) mmol/L BUN 16 (7-17) mg/dL Creatinine 0.66 L (0.7-1.0) mg/dL Estim Creat Clear Calc Not Reportable Estimated GFR > 60 (59 - ) Glucose 133 H (65-110) mg/dL Calcium 10.3 H (8.4-10.2) mg/dL C-Reactive Protein 4.8 H (<1.0) mg/dL Imaging Data Radiologist's impression: CT brain: No acute intracranial findings CT facial bones: Degenerative changes of the temporomandibular joints. Asymmetric enlargement of the right masseter and pterygoid muscles, probably asymmetric hypertrophy. Infectious/inflammatory process however is not excluded Critical Care Time Critical Care Time Critical Care Time: No Discharge Plan Discharge Clinical Impression: TMJ arthralgia Patient Disposition: Home Condition: Stable Instructions: Antibiotic Form, Temporomandibular Disorder (ED) Additional Instructions: Return to the emergency department if you experience fever >101, difficulty swallowing, trouble breathing, increasing swelling and redness of your face, or any other symptoms that are concerning to you. Ice to the area. Tylenol and Ibuprofen as needed for pain. Continue your antibiotic (Cefdinir) as prescribed The CT scan of your brain did not show any concerning findings. The CT scan of your facial bones showed some arthritis in your temporomandibular joints and some enlargement of your muscles around your right TMJ Follow up with ENT Patient Language: [place] Prescriptions: No Action cefdinir 300 mg capsule 300 mg PO Q12H Qty: 14 0RF dapagliflozin propanediol [Farxiga] 10 mg tablet 10 mg PO DAILY Qty: 90 1RF (DME) lancets 31 gauge misc See Rx Instructions .Route Qty: 100 1RF Rx Instructions: As directed with blood glucose monitoring TID amlodipine [Norvasc] 5 mg tablet 5 mg PO DAILY Qty: 90 1RF lisinopril 40 mg tablet See Rx Instructions .ROUTE .COMPLEX Qty: 90 1RF Dose Instruction: TAKE 1 TABLET BY MOUTH EVERY DAY FOR BLOOD PRESSURE Rx Instructions: TAKE 1 TABLET BY MOUTH EVERY DAY FOR BLOOD PRESSURE furosemide 20 mg tablet See Rx Instructions .ROUTE .COMPLEX Qty: 90 1RF Dose Instruction: TAKE 1 TABLET BY MOUTH EVERY MORNING Rx Instructions: TAKE 1 TABLET BY MOUTH EVERY MORNING (DME) blood-glucose meter [Contour Next Meter] [facility] See Rx Instructions .Route Qty: 1 0RF Rx Instructions: As directed metoprolol succinate 25 mg tablet extended release 24 hr 25 mg PO DAILY Qty: 90 0RF (DME) Contour Next Test Strips Strip See Rx Instructions .Route Qty: 50 4RF Rx Instructions: As directed daily gabapentin 300 mg capsule See Rx Instructions .ROUTE .COMPLEX Qty: 90 1RF Dose Instruction: TAKE 1 CAPSULE BY MOUTH 3 TIMES A DAY Rx Instructions: TAKE 1 CAPSULE BY MOUTH 3 TIMES A DAY levothyroxine 88 mcg tablet 88 mcg PO DAILY Qty: 90 0RF Tradjenta 5 mg tablet 5 mg PO QAM Qty: 90 0RF Follow-up/Referrals: Jase Keys MD [Physician, Ear, Nose, Throat] Jeovany Zuniga MD [Primary Care Provider, Family Practice]
[2025-03-11] MEDS: ACETAMINOPHEN 500 MG TABLET 1000 MG PO (23:32)
--- OUTSIDE RECORDS SUMMARY | 2025-03-11 23:45 | XMS_ITS | Encounter Summary ---
Author Organization [facility] Address [address] [place] [address] Care Team Providers Care Crime Scene Analyst Name Role Phone Mal Jin Primary Care Provider Encounter Details Date Type Department Care Team (Late st Contact Info) Description 03/01/2025 Lab Requisition [facility] - DermPath Lab [address] [facility], [place] [address] David Matute MD [address] [place] [phone] Neoplasm of uncertain behavior of skin Social History Tobacco Use Types Packs/Day Years Used Date Smoking Tobacco: Never Smokeless Tobacco: Never Alcohol Use Standard Drinks/Week Comments No 0 (1 standard drink = 0.6 oz pur e alcohol) Comments No Sex and Gender Information Value Date Recorded Sex Assigned at Not on file 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 Gender Identity Not on file Sexual Orientation Not on file documented as of this encounter Plan of Treatment Not on file documented as of this encounter Procedures Procedure Name Priority Date/Time Associated Diagnosis Comments DERMATOPATHOLOGY Routine 03/01/2025 2:10 PM CDT Neoplasm of uncertain behavior of skin documented in this encounter Results * DERMATOPATHOLOGY (03/01/2025 2:10 PM CDT) Case Report Dermatopathology Report Case: [id number] Authorizing Provider: David Matute MD Collected: 03/01/2025 02:10 PM Ordering Location: [facility] - Received: 03/02/2025 11:35 AM DermPath Lab Pathologist: Marlene Antoine MD Specimens: A) - Skin, left proximal posterior upper arm B) - Skin, left distal posterior upper arm B. C) - Skin, left distal posterior upper arm C. D) - Skin, left ;ateral buccal cheek 3:26 PM CDT DERMATOPATHOLOGY LABORATORY Final Diagnosis Specimen A. SKIN, left proximal posterior upper arm: SQUAMOUS CELL CARCINOMA IN SITU (ALVAREZ'S DISEASE) (D04.62) Specimen B. SKIN, left distal posterior upper arm B.: SQUAMOUS CELL CARCINOMA IN SITU (ALVAREZ'S DISEASE) (D04.62) Specimen C. SKIN, left distal posterior upper arm C.: BENIGN VERRUCOUS KERATOSIS, INFLAMED (L82.1) Specimen D. SKIN, left ;ateral buccal cheek: SQUAMOUS CELL CARCINOMA IN SITU (ALVAREZ'S DISEASE) (D04.39) ULCER WITH SUPERFICIAL DERMAL NECROSIS (L98.499) 3:26 PM CDT DERMATOPATHOLOGY LABORATORY at 1526 CDT Clinical History A-D: BCC vs Other 3:26 PM CDT DERMATOPATHOLOGY LABORATORY Gross Description Specimen A: Received is one formalin filled container labeled with the patient's name and designated left proximal posterior upper arm. The specimen consists of a shave biopsy measuring 8x8x1 mm. Jar 0. Specimen B: Received is one formalin filled container labeled with the patient's name and designated left distal posterior upper arm B.. The specimen consists of a shave biopsy measuring 8x7x1 mm. Jar 0. Specimen C: Received is one formalin filled container labeled with the patient's name and designated left distal posterior upper arm C.. The specimen consists of a shave biopsy measuring 8x6x2 mm. Jar 0. Specimen D: Received is one formalin filled container labeled with the patient's name and designated left ;ateral buccal cheek. The specimen consists of a shave biopsy measuring 19x8x1 mm. Jar 0. 3:26 PM [facility] DERMATOPATHOLOGY LABORATORY Microscopic Description Specimen A. SKIN, left proximal posterior upper arm: The epidermis shows parakeratosis, full thickness disorderly maturation of keratinocytes, mitoses at different levels, and dyskeratotic cells. Specimen B. SKIN, left distal posterior upper arm B.: The epidermis shows parakeratosis, full thickness disorderly maturation of keratinocytes, mitoses at different levels, and dyskeratotic cells. Specimen C. SKIN, left distal posterior upper arm C.: Sections show hyperkeratosis, papillomatosis, hypergranulosis, and acanthosis. Some keratinocytes display pallid cytoplasm. Inflammatory cells are present within the dermis. These histological findings can be seen in a verruca vulgaris or a seborrheic keratosis. Specimen D. SKIN, left ;ateral buccal cheek: The epidermis shows parakeratosis, full thickness disorderly maturation of keratinocytes, mitoses at different levels, and dyskeratotic cells. There is also an ulcer, beneath which there are vascular proliferation, fibroblasts, and an edematous stroma. 3:26 PM [facility] DERMATOPATHOLOGY LABORATORY Disclaimer An external and internal positive and negative controls are appropriate for the histochemical, immunohistochemical and immunofluorescence stain(s) in this case (if any), except where stated explicitly. The performance characteristics of the stain(s) cited in this report were developed and its performance characteristic determined by the Dermatopathology Laboratory at [facility], directed by Dr. Tatiana Bowers. These tests need not be, and therefore are not, approved by the [place] Food and Drug Administration. The tests are used for clinical purposes. Billing Codes Specimen Charges Stain Charges 38651 30733 39671 23721 1 1 1 1 3:26 PM CDT DERMATOPATHOLOGY LABORATORY Embedded Images 3:26 PM T DERMATOPATHOLOGY LABORATORY Pathology/Cytology TISSUE SPECIMEN FROM SKIN / Unknown 03/01/2025 2:10 PM CDT 03/02/2025 11:35 AM CDT Miscellaneous samples (specimen) TISSUE SPECIMEN FROM SKIN / Unknown 03/01/2025 2:10 PM CDT 03/02/2025 11:35 AM CDT Miscellaneous samples (specimen) TISSUE SPECIMEN FROM SKIN / Unknown 03/01/2025 2:10 PM CDT 03/02/2025 11:35 AM CDT Miscellaneous samples (specimen) TISSUE SPECIMEN FROM SKIN / Unknown 03/01/2025 2:10 PM CDT 03/02/2025 11:35 AM CDT us David Matute MD LAB - PATHOLOGY/CYTOLOGY ORDERAB LES Final Result Performing Organization Address City/State/[facility] Co de Phone Number DERMATOPATHOLOGY LABORATORY [facility] - Department of Dermatology [facility] Medicine [address] [place] [address], [address] [phone] documented in this encounter Visit Diagnoses Diagnosis Neoplasm of uncertain behavior of skin documented in this encounter Care Teams Crime Scene Analyst Relationship Specialty Start Date End Date Mal Jin DO PCP - General 06/23/19 documented as of this encounter
--- OUTSIDE RECORDS SUMMARY | 2025-03-11 23:46 | XMS_ITS | Encounter Summary ---
Author Organization [facility] Care Team Providers Care Correspondence Transcriber Name Role Phone Mal Jin DO Primary Care Provider Tim Moulton MD Primary Care Provider + Encounter Details Date Type Department Care Team (Latest Contact Info) Description 03/03/2018 Orders Only [facility] Provider, MD Moses [address] [place] [id number] Social History Tobacco Use Types Packs/Day Years Used Date Smoking Tobacco: Never Assessed Comments Unknown Sex and Gender Information Value Date Recorded Sex Assigned at Not on file Legal Sex Female 9:36 AM [employer]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
--- OUTSIDE RECORDS SUMMARY | 2025-03-11 23:46 | XMS_ITS | Patient Health Record ---
Author Organization 1 OF Loren payan [facility] Address [address] [place] [address] Care Team Providers Care Traffic Clerk Name Role Phone Nadia HOLM, Jeovany Primary Care Provider Gavino Noble Unavailable Allergies Allergen (clinical drug ingredient) Drug/Non Drug Allergy documented on EMR Reaction Allergy Type Onset Date Status Morphine Sulfate Unknown Drug Allergy Active tramadol traMADol Unknown Drug Allergy Active Reason For Referral Reason Eval/diagnostic/genaro tment Diagnosis 1 Diabetes mellitus wi thout complication (E11.9) Referred Organization 1 OF Loren gorman [facility] Referred Provider Oliverio Hubbard Referred Address [address] [facility],[place] [address],[place], [place],[address], Referred Provider Specialty Podiatry Referral Priority Routine Medications Medication SIG (Take, Route, Frequency, Duration) Notes Start Date End Date Status Levothyroxine Sodium 88 MCG Tablet 1 tablet Orally Once a day Active Cephalexin Active Lisinopril 40 MG Tablet 1 tablet Orally Once a day Active Furosemide Active amLODIPine Besylate Active Baby Aspirin Active Tradjenta 5 MG Tablet Oral; Duration: 90 Days Active Gabapentin Active Potassium Active Metoprolol Succinate Active glipiZIDE Active Social History Social History Additional Details Category Social Info Options Details Miscellaneous: Exercise: Sedentary Occupation: Retired Living with: spouse Drugs/Alcohol: Alcohol use: no Problems Problem Type SNOMED Code ICD Code Onset Dates Problem Status W/U Status Risk Notes Problem Generalized atherosclerosis (18971359) Generalized atherosclerosis (I70.91) Active confirmed Problem Type II diabetes mellitus without complication (566077724) Diabetes mellitus type 2, controlled, without complications (E11.9) Active confirmed Problem Type 2 diabetes mellitus with peripheral angiopathy (915698085) Type 2 diabetes mellitus with diabetic peripheral angiopathy without gangrene (E11.51) Active confirmed Problem Neurologic disorder associated with type II diabetes mellitus (164423680) 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.49) Active confirmed Problem Acquired hammer toe of right foot (5957504298846020) Hammer toe of right foot (M20.41) Active confirmed Problem Type II diabetes mellitus without complication (988719734) Diabetes mellitus without complication (E11.9) Active confirmed Problem Diabetic peripheral neuropathy (010061504) Diabetic peripheral neuropathy (E11.42) Active confirmed Problem Plantar fasciitis of right foot (92320194521801665 ) Plantar fasciitis of right foot (M72.2) Active confirmed Problem Intermittent claudication (03858060) Intermittent claudication (I73.9) Active confirmed Vital Signs Height 66 in 03/11/2025 Weight 130 lbs 03/11/2025 BMI 20.98 kg/m2 03/11/2025 Encounters Encounter Location Date Provider Diagnosis 1 OF Loren Hubbard [facility] [address] [phone] 03/11/2025 Gavino Hubbard Onychogryphosis L60.2 and Diabetic peripheral neuropathy E11.42 1 OF Loren Hubbard [facility] [address] [place] [phone] 04/29/2024 Gavino Hubbard Onychogryphosis L60.2 ; Diabetic peripheral neuropathy E11.42 ; Right foot pain M79.671 and Plantar fasciitis of right foot M72.2 1 OF Loren Hubbard [facility] [address] [place] [phone] 07/26/2024 Gavino Hubbard Onychogryphosis L60.2 and Diabetic peripheral neuropathy E11.42 1 OF Loren Hubbard [facility] [address] [place] [address] 12/24/2024 Gavino Hubbard Onychogryphosis L60.2 and Diabetic peripheral neuropathy E11.42 1 OF Loren Hubbard [facility] [address] [place] [phone] 03/11/2025 Gavino Hubbard Diabetic peripheral neuropathy E11.42 1 OF Loren Hubbard [facility] [address] [place] [address] 04/11/2024 Gavino Hubbard 1 OF Loren Hubbard [facility] [address] [place] [address] 08/12/2024 Gavino Hubbard 1 OF Loren Hubbard [facility] [address] [place] [address] 12/14/2024 Gavino Hubbard Assessments Encounter Date Diagnosis (ICD Code) Assessment Notes Treatment Notes Treatment Clinical Notes Section Notes 04/29/2024 Onychogryphosis (ICD-10 - L60.2) 07/26/2024 Onychogryphosis (ICD-10 - L60.2) 12/24/2024 Onychogryphosis (ICD-10 - L60.2) 03/11/2025 Onychogryphosis (ICD-10 - L60.2) 03/11/2025 Diabetic peripheral neuropathy (ICD-10 - E11.42) 03/11/2025 Diabetic peripheral neuropathy (ICD-10 - E11.42) Considering the associated comorbidities and physical exam findings today, this patient is at substantial risk of developing serious foot complications in the absence of regular and professional palliative foot care. 12/24/2024 Diabetic peripheral neuropathy (ICD-10 - E11.42) Considering the associated comorbidities and physical exam findings today, this patient is at substantial risk of developing serious foot complications in the absence of regular and professional palliative foot care. 07/26/2024 Diabetic peripheral neuropathy (ICD-10 - E11.42) [...] area for new shoes YONATAN. F/u prn 03/11/2025 Other Plan: - Will be measured for diabetic shoes today (Dr. Krishnamurthy or [employer] considered). - Will purchase shoes and one pair of inserts with [employer]. - Pt viewed a catalog and was offered to see shoe samples. Interventions: - Measured for diabetic shoes. Evaluation: - N/A. Additional Notes: - Pt wishes to pay [employer] for diabetic shoes to avoid the inconvenience of using her insurance, which would require travel to a specified provider in [place]. - Pt will be contacted when shoes and inserts are available for dispensing. Plan Of Treatment Next Appt Details Provider Name:Gavino Hubbard, 2025 11:20:00 AM, [address] [place], [address], Insurance Providers Payer Name Payer Address Payer Phone Subscriber Number Group Number Insured Name Patient Relationship to Insured Coverage Start Date Coverage End Date [facility] [address] [address] [place] [address] [id number] [place] Self - patient is the insured Medical (General) History Medical History History ICD Code Diabetes Cancer, Thyroid Hypertension High Cholesterol Arthritis Surgical History Surgery Date(Month/Year) Thyroid Cancer Hysterectomy Knee Replacement, Left Shoulder, Left
--- OUTSIDE RECORDS SUMMARY | 2025-03-11 23:46 | XMS_ITS | Encounter Summary ---
Author Organization [facility] Address [address] 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 The epidermal surface is unremarkable. The [...] of a non-oriented ellipse of skin measuring 73u77y3 mm. The epidermal surface is unremarkable. The [...] 6x5x2 mm. Jar 0. 3 9:15 AM [facility] DERMATOPATHOLOGY LABORATORY Microscopic Description Specimen A. SKIN, [...] smaller angulated nests that infiltrate the dermis. 9:15 AM [facility] DERMATOPATHOLOGY LABORATORY Disclaimer An external and internal positive and negative controls are appropriate for the histochemical, immunohistochemical and immunofluorescence stain(s) in this case (if any), except where stated explicitly. The performance characteristics of the stain(s) cited in this report were developed and its performance characteristic determined by the Dermatopathology Laboratory at [facility], directed by Dr. Tatiana Bowers. These tests need not be, and therefore are not, approved by the [place] Food and Drug Administration. The tests are used for clinical purposes. Billing Codes Specimen Charges Stain Charges 02673 60439 64783 1 1 1 3 9:15 AM CDT [...] PATHOLOGY/CYTOLOGY ORDERAB LES Final Result DERMATOPATHOLOGY LABORATORY [facility] - Department of Dermatology [address], [address] [phone] documented in this encounter Visit Diagnoses Diagnosis Basal cell carcinoma of skin of right upper limb, including shoulder Basal cell carcinoma of skin of upper limb, including shoulder Basal cell carcinoma of skin of nose Basal cell carcinoma of skin of other and unspecified parts of face documented in this encounter Care Teams Traffic Personnel Supervisor Relationship Specialty Start Date End Date Mal Jin DO PCP - General 06/23/19 documented as of this encounter
--- OUTSIDE RECORDS SUMMARY | 2025-03-11 23:46 | XMS_ITS | Encounter Summary ---
Author Organization [facility] Address [address] [facility] [address] [facility] [place] [address] Care Team Providers Care Hardware Engineering Manager Name Role Phone Mal Jin Primary Care Provider Encounter Details Date Type Department Care Team (Late st Contact Info) Description 09/12/2023 Lab Requisition [facility] - DermPath Lab [address] [facility] [place] [address] Denae Chavez MD [address] [place] [phone] Neoplasm of uncertain behavior of skin Social History Tobacco Use Types Packs/Day Years Used Date Smoking Tobacco: Never Smokeless Tobacco: Never Alcohol Use Standard Drinks/Week Comments No 0 (1 standard drink = 0.6 oz pur e alcohol) Comments No Sex and Gender Information Value Date Recorded Sex Assigned at Not on file 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 - Received: 09/15/2023 12:50 PM DermPath Lab Pathologist: Lillie Antoine MD Specimen: Skin, left ventral forearm 5:34 PM CDT DERMATOPATHOLOGY LABORATORY Final Diagnosis Specimen A. SKIN, left ventral forearm: SQUAMOUS CELL CARCINOMA IN SITU (ALVAREZ'S DISEASE) (D04.62) 5:34 PM CDT DERMATOPATHOLOGY LABORATORY at 1734 [...] characteristic determined by the Dermatopathology Laboratory at [facility], directed by Dr. Tatiana Bowers. These tests need not be, and therefore are not, approved by the [place] Food and Drug Administration. The tests are used for clinical purposes. Billing Codes Specimen Charges Stain Charges 37945 1 5:34 PM CDT DERMATOPATHOLOGY LABORATORY Embedded Images 5:34 PM CDT DERMATOPATHOLOGY LABORATORY Pathology/Cytolo gy TISSUE SPECIMEN FROM SKIN / Unknown 09/12/2023 3:33 AM CDT 09/15/2023 12:50 PM CDT us Denae Chavez MD LAB - PATHOLOGY/CYTOLOGY ORDERAB LES Final Result DERMATOPATHOLOGY LABORATORY [facility] - Department of Dermatology [facility] [address] [place] [address], [address] [place] [address], [facility] [phone] documented in this encounter Visit Diagnoses Diagnosis Neoplasm of uncertain behavior of skin documented in this encounter Care Teams Hardware Engineering Manager Relationship Specialty Start Date End Date Mal Jin DO PCP - General 06/23/19 documented as of this encounter
--- OUTSIDE RECORDS SUMMARY | 2025-03-11 23:46 | XMS_ITS | Clinical Summary ---
Author Organization [facility] Address [address] [place] [address] Care Team Providers Care Erp Technical Lead Name Role Phone Mal Jin DO Primary Care Provider Source Comments [facility],non-owned Affiliates and Associated Physician Practices is amultiple site organization consisting of ambulatory clinics and hospital sitesin [place], [place], [place] and [place]. This disclosure is being madepursuant to the Care Everywhere program and may not contain all information available regarding this patient. Last updated 18.[facility] Allergies Active Allergy Reactions Criticality Noted Date [...] tablet 01/26/2019 Active POTASSIUM PHOSPHATE PO Active Encounters Date Type Department Care Team Description 03/01/2025 Lab Requisition [facility] - DermPath Lab [address] [facility], [place] [address] David Matute MD Neoplasm of uncertain behavior of skin from Last 3 Months Social History Tobacco Use Types Packs/Day Years Used Date Smoking Tobacco: Never Smokeless Tobacco: Never Alcohol Use Standard Drinks/Week Comments No 0 (1 standard drink = 0.6 oz pur e alcohol) Comments No Sex and Gender Information Value Date Recorded Sex Assigned at Not on file Legal Sex Female 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 Gender Identity Not on file Sexual Orientation Not on file Last Filed Vital Signs Vital Sign Reading Time Taken Comments Blood Pressure 162/68 06/23/2019 8:02 AM HAND BOOKED FOLDER AND STITCHER Pulse 65 06/23/2019 8:02 AM HAND BOOKED FOLDER AND STITCHER Temperature 36.8 C (98.3 F) 09/13/2018 12:46 AM CDT Respiratory Rate 15 09/13/2018 2:24 AM CDT Oxygen Saturation 96% 09/13/2018 2:24 AM CDT Inhaled Oxygen Concentration - - Weight 59 kg (130 lb) 06/23/2019 8:02 AM HAND BOOKED FOLDER AND STITCHER Height 167.6 cm (5' 6) 06/23/2019 8:02 AM HAND BOOKED FOLDER AND STITCHER Body Mass Index 20.98 06/23/2019 8:02 AM HAND BOOKED FOLDER AND STITCHER Plan of Treatment Health Maintenance Due Date Last Done Comments BONE DENSITY TESTING 1940 MEDICARE AWV 12 MONTHS 1940 DTAP/TDAP/TD VACCINES (1 - Tdap) 1959 PNEUMOCOCCAL VACCINE 50+ (1 of 1 - PCV) 1990 ZOSTER VACCINE (1 of 2) 1990 Respiratory Syncytial Virus (RSV) Vaccine Pt: or over 60 yrs (1 - 1-dose 75+ series) 2015 DEPRESSION SCREENING 05/26/2024 COVID-19 VACCINE (1 - 2023- season) 2025 INFLUENZA VACCINE (#1) 2025 9, 03/07/2018, 02/15/2017, [...] on patient's age to complete this topic Procedures Procedure Name Priority Date/Time Associated Diagnosis Comments DERMATOPATHOLOGY Routine 03/01/2025 2:10 PM CDT Neoplasm of uncertain behavior of skin from Last 3 Months Results * DERMATOPATHOLOGY (03/01/2025 2:10 PM CDT) Case Report Dermatopathology Report Case: [id number] Authorizing Provider: David Matute MD Collected: 03/01/2025 02:10 PM Ordering Location: [facility] - Received: 03/02/2025 11:35 AM DermPath Lab [...] History A-D: BCC vs Other 3:26 PM [facility] DERMATOPATHOLOGY LABORATORY Gross Description Specimen A: Received [...] measuring 19x8x1 mm. Jar 0. 3:26 PM [facility] DERMATOPATHOLOGY LABORATORY Microscopic Description Specimen A. SKIN, [...] fibroblasts, and an edematous stroma. 3:26 PM [facility] DERMATOPATHOLOGY LABORATORY Disclaimer An external and internal positive and negative controls are appropriate for the histochemical, immunohistochemical and immunofluorescence stain(s) in this case (if any), except where stated explicitly. The performance characteristics of the stain(s) cited in this report were developed and its performance characteristic determined by the Dermatopathology Laboratory at [facility], directed by Dr. Tatiana Bowers. These tests need not be, and therefore are not, approved by the [place] Food and Drug Administration. The tests are used for clinical purposes. Billing Codes Specimen Charges Stain Charges 32146 35623 58641 27391 1 1 1 1 3:26 PM CDT DERMATOPATHOLOGY LABORATORY Embedded Images 3:26 PM CDT DERMATOPATHOLOGY LABORATORY Pathology/Cytology TISSUE SPECIMEN [...] 2:10 PM CDT 03/02/2025 11:35 AM CDT David Matute MD LAB - PATHOLOGY/CYTOLOGY ORDERAB LES Final Result DERMATOPATHOLOGY LABORATORY [facility] - Department of Dermatology [facility] [address] [place] [address], [address] [phone] from Last 3 Months Insurance [facility] MEDICARE [employer] [place] MED[employer]ARE [facility] MEDICARE [employer] MED[employer]ARE [employer] MED[employer]ARE [employer] MED[employer]ARE [employer] MED[employer]ARE [employer] MEDICARE Care Teams Erp Technical Lead Relationship Specialty Start Date End Date Mal Jin DO PCP - General 06/23/19
--- OUTSIDE RECORDS SUMMARY | 2025-03-11 23:46 | XMS_ITS | Encounter Summary ---
Author Organization [facility] Address [address] [place] [address] Care Team Providers Care Butter Wrapper Name Role Phone Mal Jin Primary Care Provider Encounter Details Date Type Department Care Team (Late st Contact Info) Description 07/03/2023 Lab Requisition [facility] - DermPath Lab [address] [facility], [place] [address] Denae Chavez MD [address] [place] [phone] Neoplasm of uncertain behavior of skin Social History Tobacco Use Types Packs/Day Years Used Date Smoking Tobacco: Never Smokeless Tobacco: Never Alcohol Use Standard Drinks/Week Comments No 0 (1 standard drink = 0.6 oz pur e alcohol) Comments No Sex and Gender Information Value Date Recorded Sex Assigned at Not on file Legal Sex Female 6:02 PM SPOUTING INSTALLER Gender Identity Not on file Sexual Orientation Not on file documented as of this encounter Plan of Treatment Not on file documented as of this encounter Procedures Procedure Name Priority Date/Time Associated Diagnosis Comments DERMATOPATHOLOGY Routine 07/03/2023 3:33 AM SPOUTING INSTALLER Neoplasm of uncertain behavior of skin documented in this encounter Results * DERMATOPATHOLOGY (07/03/2023 3:33 AM SPOUTING INSTALLER) Case Report Dermatopathology Report Case: [id number] Authorizing Provider: Denae Chavez MD Collected: 07/03/2023 03:33 AM Ordering Location: [facility] DermPath Lab Received: 07/04/2023 04:30 PM Pathologist: Lillie Antoine MD Specimens: A) - Skin, right bahai superior B) - Skin, right bahai inferior C) - Skin, right superior chest D) - Skin, left forearm 12:12 PM [facility] DERMATOPATHOLOGY LABORATORY Final Diagnosis Specimen A. SKIN, right bahai superior: HYPERPLASTIC (HYPERTROPHIC) ACTINIC KERATOSIS (L57.0) Specimen B. SKIN, right bahai inferior: SQUAMOUS CELL CARCINOMA IN SITU (ALVAREZ'S DISEASE) (D04.39) Specimen C. 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 SKIN, left forearm: SQUAMOUS CELL CARCINOMA IN SITU (ALVAREZ'S DISEASE) (D04.62) 12:12 PM [facility] DERMATOPATHOLOGY LABORATORY at 1212 SPOUTING INSTALLER Clinical History A-C: Actinic Keratosis D: Basal Cell Carcinoma 12:12 PM [facility] DERMATOPATHOLOGY LABORATORY Gross Description Specimen A: Received is one formalin filled container labeled with the patient's name and designated right bahai superior. The specimen consists of a shave biopsy measuring 8x7x1 mm. Jar 0. Specimen B: Received is one formalin filled container labeled with the patient's name and designated right bahai inferior. The specimen consists of a shave [...] 16x9x1 mm. Jar 0. 4 12:12 PM [facility] DERMATOPATHOLOGY LABORATORY Microscopic Description Specimen A. SKIN, right bahai superior: There is hyperkeratosis alternating with parakeratosis. There is epidermal hyperplasia with disorderly maturation of keratinocytes with nuclear pleomorphism confined to the lower half of the epidermis. Specimen B. SKIN, right bahai inferior: The epidermis shows parakeratosis, full thickness [...] levels, and dyskeratotic cells. 4 12:12 PM SPOUTING INSTALLER DERMATOPATHOLOGY LABORATORY Disclaimer An external and internal positive and negative controls are appropriate for the histochemical, immunohistochemical and immunofluorescence stain(s) in this case (if any), except where stated explicitly. The performance characteristics of the stain(s) cited in this report were developed and its performance characteristic determined by the Dermatopathology Laboratory at [facility], directed by Dr. Tatiana Bowers. These tests need not be, and therefore are not, approved by the [place] Food and Drug Administration. The tests are used for clinical purposes. Billing Codes Specimen Charges Stain Charges 06119 12097 42280 24811 1 1 1 1 4 12:12 PM SPOUTING INSTALLER DERMATOPATHOLOGY LABORATORY Embedded Images 4 12:12 PM SPOUTING INSTALLER DERMATOPATHOLOGY LABORATORY Pathology/Cytology TISSUE SPECIMEN FROM SKIN / Unknown 07/03/2023 3:33 AM SPOUTING INSTALLER 07/04/2023 4:30 PM SPOUTING INSTALLER Miscellaneous samples (specimen) TISSUE SPECIMEN FROM SKIN / Unknown 07/03/2023 3:33 AM SPOUTING INSTALLER 07/04/2023 4:30 PM SPOUTING INSTALLER Miscellaneous samples (specimen) TISSUE SPECIMEN FROM SKIN / Unknown 07/03/2023 3:33 AM SPOUTING INSTALLER 07/04/2023 4:30 PM SPOUTING INSTALLER Miscellaneous samples (specimen) TISSUE SPECIMEN FROM SKIN / Unknown 07/03/2023 3:33 AM SPOUTING INSTALLER 07/04/2023 4:30 PM SPOUTING INSTALLER us Dneae Chavez MD LAB - PATHOLOGY/CYTOLOGY ORDERAB LES Final Result DERMATOPATHOLOGY LABORATORY [facility] - Department of [facility] [address] [place] [address], [address] [phone] documented in this encounter Visit Diagnoses Diagnosis Neoplasm of uncertain behavior of skin documented in this encounter Care Teams Butter Wrapper Relationship Specialty Start Date End Date Mal Jin DO PCP - General 06/23/19 documented as of this encounter
--- OUTSIDE RECORDS SUMMARY | 2025-03-11 23:46 | XMS_ITS | Encounter Summary ---
Author Organization [facility] Address [address] [place] [address] Care Team Providers Care Assembler Semiconductor Name Role Phone Mal Jin DO Primary Care Provider Encounter Details Date Type Department Care Team (Late st Contact Info) Description 04/08/2023 Lab Requisition [facility] Derm[facility] Lab [address] [facility], [place] [address] Sebastian Garcia MD [facility] DERMATOLOGY [address] [place] [phone] Neoplasm of uncertain behavior of skin Social History Tobacco Use Types Packs/Day Years Used Date Smoking Tobacco: Never Smokeless Tobacco: Never Alcohol Use Standard Drinks/Week Comments No 0 (1 standard drink = 0.6 oz pur e alcohol) Comments No Sex and Gender Information Value Date Recorded Sex Assigned at Not on file Legal Sex Female 6:02 PM CORPORATE EXECUTIVE Gender Identity Not on file Sexual Orientation Not on file documented as of this encounter Plan of Treatment Not on file documented as of this encounter Procedures Procedure Name Priority Date/Time Associated Diagnosis Comments DERMATOPATHOLOGY Routine 04/08/2023 3:33 AM CORPORATE EXECUTIVE Neoplasm of uncertain behavior of skin documented in this encounter Results * DERMATOPATHOLOGY (04/08/2023 3:33 AM CORPORATE EXECUTIVE) Case Report Dermatopathology Report Case: [id number] Authorizing Provider: Sebastian Garcia MD Collected: 04/08/2023 03:33 AM Ordering Location: [facility] DermPath Lab Received: 04/09/2023 04:00 PM Pathologist: Marlene Antoine MD Specimen: Skin, mid back 3:46 PM [facility] DERMATOPATHOLOGY LABORATORY Final Diagnosis Specimen A. SKIN, mid back: DERMAL SCAR (L90.5) 3 3:46 PM [facility] DERMATOPATHOLOGY LABORATORY at 1546 CORPORATE EXECUTIVE Clinical History Basal Cell Carcinoma 3:46 PM [facility] DERMATOPATHOLOGY LABORATORY Gross Description Specimen A: Received is one formalin filled container labeled with the patient's name and designated mid back. The specimen consists of a shave biopsy measuring 5x5x1 mm. Jar 0. 3:46 PM [facility] DERMATOPATHOLOGY LABORATORY Microscopic Description Specimen A. SKIN, mid back: There are fibroblasts and collagen bundles oriented parallel to the skin surface with elongated blood vessels, some of which are oriented perpendicular to the skin surface. 3:46 PM [facility] DERMATOPATHOLOGY LABORATORY Disclaimer An external and internal positive and negative controls are appropriate for the histochemical, immunohistochemical and immunofluorescence stain(s) in this case (if any), except where stated explicitly. The performance characteristics of the stain(s) cited in this report were developed and its performance characteristic determined by the Dermatopathology Laboratory at [facility], directed by Dr. Tatiana Bowers. These tests need not be, and therefore are not, approved by the [place] Food and Drug Administration. The tests are used for clinical purposes. Billing Codes Specimen Charges Stain Charges 45781 1 3 3:46 PM [facility] DERMATOPATHOLOGY LABORATORY Embedded Images 3 3:46 PM [facility] DERMATOPATHOLOGY LABORATORY Pathology/Cytolo gy TISSUE SPECIMEN FROM SKIN / Unknown 04/08/2023 3:33 AM CORPORATE EXECUTIVE 04/09/2023 4:00 PM CORPORATE EXECUTIVE Sebastian Garcia MD LAB - PATHOLOGY/CYTOLOGY ORDManish FULLER Final Result DERMATOPATHOLOGY LABORATORY [facility] Department of Dermatology [facility] Specialized Medicine [address] [place] [address], [address] [phone] documented in this encounter Visit Diagnoses Diagnosis Neoplasm of uncertain behavior of skin documented in this encounter Care Teams Assembler Semiconductor Relationship Specialty Start Date End Date Mal Jin DO PCP - General 06/23/19 documented as of this encounter
--- OUTSIDE RECORDS SUMMARY | 2025-03-11 23:46 | XMS_ITS | Encounter Summary ---
Author Organization [facility] Address [address] [place] [address] Care Team Providers Care Lab Rep Name Role Phone Mal Jin Primary Care Provider Encounter Details Date Type Department Care Team (Late st Contact Info) Description 01/08/2024 Lab Requisition [facility] Derm[facility] Lab [address] [facility], [place] [address] Denae Chavez MD [address] [place] [phone] Neoplasm of uncertain behavior of skin Social History Tobacco Use Types Packs/Day Years Used Date Smoking Tobacco: Never Smokeless Tobacco: Never Alcohol Use Standard Drinks/Week Comments No 0 (1 standard drink = 0.6 oz pur e alcohol) Comments No Sex and Gender Information Value Date Recorded Sex Assigned at Not on file Legal Sex Female 6:02 PM DIRECTOR TRAFFIC AND PLANNING Gender Identity Not on file Sexual Orientation Not on file documented as of this encounter Plan of Treatment Not on file documented as of this encounter Procedures Procedure Name Priority Date/Time Associated Diagnosis Comments DERMATOPATHOLOGY Routine 01/08/2024 12:0 0 AM CDT Neoplasm of uncertain behavior of skin documented in this encounter Results * DERMATOPATHOLOGY (01/08/2024 12:00 AM CDT) Case Report Dermatopathology Report Case: [id number] Authorizing Provider: Denae Chavez MD Collected: 01/08/2024 12:00 AM Ordering Location: [facility] - Received: 01/09/2024 04:24 PM DermPath Lab Pathologist: Lillie Antoine MD Specimen: Skin, righ neck 3:13 PM CDT DERMATOPATHOLOGY LABORATORY Final Diagnosis Specimen A. SKIN, righ neck: SQUAMOUS CELL CARCINOMA IN SITU (ALVAREZ'S DISEASE) (D04.4) 3:13 PM CDT DERMATOPATHOLOGY LABORATORY at 1513 CDT Clinical History SCCIS vs [place] 3:13 PM [...] characteristic determined by the Dermatopathology Laboratory at [facility], directed by Dr. Tatiana Bowers. These tests need not be, and therefore are not, approved by the [place] Food and Drug Administration. The tests are used for clinical purposes. Billing Codes Specimen Charges Stain Charges 72869 1 3:13 PM CDT DERMATOPATHOLOGY LABORATORY Embedded Images 3:13 PM CDT DERMATOPATHOLOGY LABORATORY Pathology/Cytolog y TISSUE SPECIMEN FROM SKIN / Unknown 01/08/2024 01/09/2024 4:24 PM CDT us Denae Chavez MD LAB - PATHOLOGY/CYTOLOGY ORDERAB LES Final Result DERMATOPATHOLOGY LABORATORY [facility] - Department of Dermatology [facility] Medicine [address] [place] [address], [address] [phone] documented in this encounter Visit Diagnoses Diagnosis Neoplasm of uncertain behavior of skin documented in this encounter Care Teams Lab Rep Relationship Specialty Start Date End Date Mal Jin DO PCP - General 06/23/19 documented as of this encounter
--- OUTSIDE RECORDS SUMMARY | 2025-03-11 23:46 | XMS_ITS | Encounter Summary ---
Author Organization [facility] Address [address] [place] [address] Care Team Providers Care Oim Architect Name Role Phone Mal Jin Primary Care Provider Encounter Details Date Type Department Care Team (Late st Contact Info) Description 01/21/2023 Lab Requisition [facility] DermPath Lab [address] [facility], [place] [address] Sebastian Garcia MD [facility] DERMATOLOGY [address] [place] [phone] Neoplasm of uncertain behavior of skin Social History Tobacco Use Types Packs/Day Years Used Date Smoking Tobacco: Never Smokeless Tobacco: Never Alcohol Use Standard Drinks/Week Comments No 0 (1 standard drink = 0.6 oz pur e alcohol) Comments No Sex and Gender Information Value Date Recorded Sex Assigned at Not on file Legal Sex Female 6:02 PM MANAGER STARS Gender Identity Not on file Sexual Orientation Not on file documented as of this encounter Plan of Treatment Not on file documented as of this encounter Procedures Procedure Name Priority Date/Time Associated Diagnosis Comments DERMATOPATHOLOGY Routine 01/21/2023 3:33 AM CDT Neoplasm of uncertain behavior of skin documented in this encounter Results * DERMATOPATHOLOGY (01/21/2023 3:33 AM CDT) Case Report Dermatopathology Report Case: [id number] Authorizing Provider: Sebastian Garcia MD Collected: 01/21/2023 03:33 AM Ordering Location: [facility] DermPath Lab Received: 01/22/2023 11:51 AM Pathologist: [...] CARCINOMA, 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 Jar 0. 3 2:59 PM [facility] DERMATOPATHOLOGY LABORATORY Microscopic Description Specimen [...] by the Dermatopathology Laboratory at [facility], directed by Dr. Tatiana Bowers. These tests need not be, and therefore are not, approved by the [place] Food and Drug Administration. The tests are used for clinical purposes. Billing Codes Specimen Charges Stain Charges 23089 64253 99916 08632 74086 1 1 1 1 1 3 2:59 [...] AM CDT Sebastian Garcia MD LAB - PATHOLOGY/CYTOLOGY ORDE ALINA Final Result Performing Organization Address City/State/[facility] Co de Phone Number DERMATOPATHOLOGY LABORATORY [facility] - Department of Dermatology [facility] Specialized Medicine [address] [place] [address] [phone] documented in this encounter Visit Diagnoses Diagnosis Neoplasm of uncertain behavior of skin documented in this encounter Care Teams Oim Architect Relationship Specialty Start Date End Date Mal Jin DO PCP - General 06/23/19 documented as of this encounter
--- OUTSIDE RECORDS SUMMARY | 2025-03-11 23:46 | XMS_ITS | Encounter Summary ---
Author Organization [facility] Address [address] [facility] [place] [address] Care Team Providers Care Grinder Hand Name Role Phone Mal Jin Primary Care Provider Encounter Details Date Type Department Care Team (Late st Contact Info) Description 02/26/2023 Lab Requisition [facility] D[facility] Lab [address] [facility] [place] [address] Denae Chavez MD [address] [place] [phone] Basal cell carcinoma of skin of left upper limb, including shoulder Social History Tobacco Use Types Packs/Day Years Used Date Smoking Tobacco: Never Smokeless Tobacco: Never Alcohol Use Standard Drinks/Week Comments No 0 (1 standard drink = 0.6 oz pur e alcohol) Comments No Sex and Gender Information Value Date Recorded Sex Assigned at Not on file Legal Sex Female 6:02 PM 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 The margin is inked green. The [...] purposes. Billing Codes Specimen Charges Stain Charges 91139 1 3 5:34 PM CDT DERMATOPATHOLOGY LABORATORY Embedded Images 3 5:34 PM CDT DERMATOPATHOLOGY LABORATORY Pathology/Cytolog y TISSUE SPECIMEN FROM SKIN / Unknown 02/26/2023 02/27/2023 1:55 PM CDT us Denae Chavez MD LAB - PATHOLOGY/CYTOLOGY ORDERAB LES Final Result DERMATOPATHOLOGY LABORATORY [facility] - Department of Dermatology [address], [address] [phone] documented in this encounter Visit Diagnoses Diagnosis Basal cell carcinoma of skin of left upper limb, including shoulder Basal cell carcinoma of skin of upper limb, including shoulder documented in this encounter Care Teams Grinder Hand Relationship Specialty Start Date End Date Mal Jin DO PCP - General 06/23/19 documented as of this encounter
--- OUTSIDE RECORDS SUMMARY | 2025-03-11 23:46 | XMS_ITS | Clinical Summary ---
Author Organization [facility] Address [address] [place] [address] Care Team Providers Care Safe Deposit Attendant Name Role Phone Unavailable Primary Care Provider Unavailabl e Medications potassium chloride (KLOR-CON M10) 10 mEq Extended Release tablet Take 1 tablet by mouth every day 90 Tablet 1 04/18/2024 Active Encounters Date Type Department Care Team Description 01/25/2025 External Device Data [facility] ABSTRACTION Provider, Abstract 01/11/2025 External Device Data [facility] ABSTRACTION Provider, Abstract 12/29/2024 External Device Data [facility] ABSTRACTION Provider, Abstract from Last 3 Months Social History Tobacco Use Types Packs/Day Years Used Date Smoking Tobacco: Never Assessed Comments Unknown Sex and Gender Information Value Date Recorded Sex Assigned at Not on file Legal Sex Female 9:32 AM BAR PILOT Gender Identity Not on file Sexual Orientation [...]
[2025-03-11 23:53] LABS: Anion Gap 9 mmol/L (4-12); Blood Urea Nitrogen 16 mg/dL (7-17); CRP 4.8 mg/dL (<1.0); Calcium 10.3 mg/dL (8.4-10.2); Carbon Dioxide 26 mmol/L (22-30); Chloride 103 mmol/L (98-107); Estimated Glomerular Filt Rate > 60; Glucose 133 mg/dL (65-110); Potassium 3.7 mmol/L (3.4-5.0); Sodium 138 mmol/L (137-145)
[2025-03-12 01:08] LABS: Hematocrit 36.3 % (37.0-47.0); Hemoglobin 11.7 g/dL (12.0-15.0); Immature Granulocyte Percent A 0.3 % (0-0.5); Lymphocytes Absolute Auto 3.31 K/mm3 (0.9-3.2); Mean Corpuscular HGB Conc 32.2 g/dl (32-36); Mean Corpuscular Hemoglobin 28.2 pg (26-34); Mean Corpuscular Volume 87.5 fl (80-100); Nucleated Red Blood Cells Absolute Auto 0.000 K/mm3 (0.0-0.012); Nucleated Red Blood Cells Perc 0.0 % (0.0-0.2); Platelet Count Result 249 k/mm3 (150-375); Red Blood Count 4.15 M/mm3 (4.2-5.4); White Blood Count 13.5 K/mm3 (4.5-10.0)
[2025-03-12 02:30] VITALS: BP 151/86; PULSE 64; RESP 16; O2SAT 95
[2025-03-12] MEDS: IBUPROFEN 600 MG TABLET PO (02:36)
== END 2025-03-12 04:24 | disposition home or self-care (01) ==
PROVIDERS: Emergency Provider Physician Assistant; PCP Family Medicine
DX: M26.621 Arthralgia of right temporomandibular joint (principal); E78.00 Pure hypercholesterolemia, unspecified; I25.2 Old myocardial infarction; E89.0 Postprocedural hypothyroidism; Z96.652 Presence of left artificial knee joint; Z87.440 Personal history of urinary (tract) infections; Z90.49 Acquired absence of other specified parts of digestive tract; Z90.710 Acquired absence of both cervix and uterus; Z77.22 Contact with and (suspected) exposure to environmental tobacco smoke (acute) (chronic); R90.82 White matter disease, unspecified; M19.09 Primary osteoarthritis, other specified site; R93.0 Abnormal findings on diagnostic imaging of skull and head, not elsewhere classified; G93.89 Other specified disorders of brain
CPT/HCPCS: 36415; 70450; 70487; 80048; 85025; 85652; 86140; 99284; A9270; Q9967

== ENCOUNTER 2025-05-09 14:26 | Emergency (ER) | payer OTHER, SELFPAY ==
[2025-05-09 14:42] VITALS: BP 145/64; PULSE 57; RESP 20; TEMP 36.6; O2SAT 97
--- NOTE | 2025-05-09 14:55 | ED_ITS ---
HPI - Female Genitourinary General Chief complaint: Urogenital-Female Stated complaint: UTI Time Seen by Provider: 05/09/25 15:02 Source: patient and RN notes reviewed Mode of arrival: ambulatory Limitations: no limitations History of Present Illness HPI Narrative: 84-year-old female presents concern for 3-4 day history of dysuria, suprapubic pressure, urine frequency, low back pain and incontinence overnight. Reports she has been wearing depends overnight she is waking up with that wet which is unusual for her. Her daughter reports she has seemed generally weak and slightly confused. She reports chills MD elicited complaint: UTI Related Data Allergies Allergy/AdvReac Type Severity Reaction Status Date / Time codeine Allergy Mild Itching Verified 05/09/25 14:56 Opioids - Morphine Analogues AdvReac Severe Confusion Verified 05/09/25 14:56 tramadol AdvReac Unknown Verified 05/09/25 14:56 Review of Systems Review of Systems: CONSTITUTIONAL: Denies malaise, chills, sweats, or fever. CARDIOVASCULAR: Denies chest pain, palpitations, or edema. RESPIRATORY: Denies cough or dyspnea. GASTROINTESTINAL: Denies abdominal pain, nausea, vomiting, diarrhea GENITOURINARY: Reports dysuria, frequency, urinary incontinence, suprapubic pressure. Denies flank pain or hematuria. SKIN: Denies rash or itching. MUSCULOSKELETAL: Denies back pain or myalgia. All systems reviewed & are unremarkable except as noted in HPI and below PMFSH Past Medical History Medical History (Updated 05/09/25 @ 15:08 by Elva Chowdary APRN) Hospital discharge follow-up TMJ arthritis OM (otitis media), recurrent Right otitis media Right flank pain Finger joint swelling Warmth of joint Positive fecal occult blood test UTI (urinary tract infection) UTI symptoms Diabetic foot Lateral epicondylitis of elbow Encounter to establish care Squamous cell carcinoma of left hand High cholesterol Stroke Heart attack Anemia Surgical History Surgical History History of knee replacement procedure of left knee History of cholecystectomy H/O thyroidectomy H/O: hysterectomy Family History Family History Father No problems noted. Mother No problems noted. Sibling No problems noted. Social History Social History Smoking status: Never smoker Second hand tobacco smoke exposure: Yes Alcohol intake: former Substance use: never Substance use type: does not use Lack of Transportation: No Lack of Food: Never True Current Housing: I Have Housing Concerned About Future Housing: No Difficulty Paying Gas/Electric Bills: No Difficulty Paying for Meds: No Currently Unemployed: No Education: Decline to Answer Difficulty w/ Childcare or Family Care: No Living arrangements: with family Occupation/Education: retired Gender identity (if verbalized by the patient): Female Spiritual care concerns: No Agree to blood products: Yes Comments At time of signature, agree with nursing past medical, surgical, social and family history. There is no relevant family history pertinent to the presenting complaint Exam Narrative: GENERAL: Well-appearing, well-nourished, and in no acute distress. HEAD: Normocephalic. EYES: PERRLA, conjunctivae clear. NECK: Supple. No lymphadenopathy CHEST: Clear to auscultation. No respiratory distress. HEART: Regular rate and rhythm. ABDOMEN: Soft, nontender upon palpation, nondistended, no palpable or pulsatile masses, no guarding. Mild bilateral CVA tenderness SKIN: Warm, dry, no rash. NEURO: Alert and oriented x3. PSYCH: Normal mood and affect Course Course Emergency Course: Patient is aware of diagnosis, understands and agrees to treatment plan. An ticipatory guidance given. Patient agrees to follow-up as directed and is aware of reasons to seek care at the emergency department. Portions of this record may have been created with voice recognition software Level of Care: Express Care Visit Vital Signs Vital signs: Vital Signs Temperature 98 F 05/09/25 14:42 Pulse Rate 57 L 05/09/25 14:42 Respiratory Rate 05/09/25 14:42 Blood Pressure 145/64 H 05/09/25 14:42 Pulse Oximetry 97 05/09/25 14:42 Oxygen Delivery Room Air 05/09/25 14:42 Temperature 98 F 05/09/25 14:42 Pulse Rate 57 L 05/09/25 14:42 Respiratory Rate 20 05/09/25 14:42 Blood Pressure 145/64 H 05/09/25 14:42 Pulse Oximetry 97 05/09/25 14:42 Oxygen Delivery Room Air 05/09/25 14:42 MDM Differential Diagnosis Differential Diagnosis: I evaluated this patient in the [facility] care. History is obtained from patient who is an independent historian and physical exam was performed.? Available medical records were reviewed. ? Exam findings and relevant testing show no acute concerns or changes; patient is non-toxic appearing and is in no distress. ? Exam findings and UA show no acute concerns or changes; patient is non-toxic appearing and is in no distress. No CMT, adnexal tenderness, or evidence of pelvic etiology. Differential diagnosis include pyelonephritis, STI, cystitis, urinary tract infection, acute abdomen, gastroenteritis, yeast infection Differential diagnosis and treatment plan were discussed with the patient. Patient agrees with discussion and after shared medical decision making agrees with plan of care. All questions were answered to the patient's satisfaction. Patient is appropriate for outpatient treatment and follow-up. Discharge Plan Discharge Clinical Impression: Dysuria Patient Disposition: Home Condition: Stable Instructions: Antibiotic Form, Dysuria (ED) Additional Instructions: Please make a follow-up appoint with your primary care provider. We will send a urine culture to the lab; if the culture identifies an organism that the prescribed antibiotic will not treat, you will receive a phone call from an urgent care staff member and an appropriate antibiotic will be prescribed. Also recommend: increase water intake. Tylenol as needed for pain or fever Go to the emergency room if condition worsens with high fever, nausea, vomiting and severe back pain. Patient Language: Nicaraguan Prescriptions: New ciprofloxacin HCl 500 mg tablet 500 mg PO Q12H 5 Days Qty: 10 0RF No Action amlodipine [Norvasc] 5 mg tablet 5 mg PO DAILY Qty: 90 1RF lisinopril 40 mg tablet See Rx Instructions .ROUTE .COMPLEX Qty: 90 1RF Dose Instruction: TAKE 1 TABLET BY MOUTH EVERY DAY FOR BLOOD PRESSURE Rx Instructions: TAKE 1 TABLET BY MOUTH EVERY DAY FOR BLOOD PRESSURE furosemide 20 mg tablet See Rx Instructions .ROUTE .COMPLEX Qty: 90 1RF Dose Instruction: TAKE 1 TABLET BY MOUTH EVERY MORNING Rx Instructions: TAKE 1 TABLET BY MOUTH EVERY MORNING metoprolol succinate 25 mg tablet extended release 24 hr 25 mg PO DAILY Qty: 90 0RF levothyroxine 88 mcg tablet 88 mcg PO DAILY Qty: 90 0RF Tradjenta 5 mg tablet 5 mg PO QAM Qty: 90 0RF escitalopram oxalate [Lexapro] 5 mg tablet 5 mg PO DAILY Qty: 100 0RF (DME) lancets [Accu-Chek Fastclix Lancet Drum] Misc See Rx Instructions .ROUTE .MEDSUPPLY Qty: 100 1RF Rx Instructions: once daily blood sugar checks (DME) blood-glucose meter [Accu-Chek Guide Glucose Meter] Misc See Rx Instructions .ROUTE .MEDSUPPLY Qty: 1 0RF Rx Instructions: As directed (DME) Accu-Chek Gabrielle Plus test strp Strip See Rx Instructions .ROUTE .MEDSUPPLY Qty: 100 3RF Rx Instructions: Once daily gabapentin 300 mg capsule See Rx Instructions .ROUTE .COMPLEX Qty: 90 1RF Dose Instruction: TAKE 1 CAPSULE BY MOUTH 3 TIMES A DAY Rx Instructions: TAKE 1 CAPSULE BY MOUTH 3 TIMES A DAY Follow-up/Referrals: Jeovany Zuniga MD [Primary Care Provider, Family Practice] Time of Disposition: 15:09
[2025-05-09 16:02] LABS: EDUAAPPEAR Cloudy; EDUABILI Negative (Negative); EDUABLOOD Trace (Negative); EDUACOLOR1 Yellow; EDUAGLUCOSE Negative (Negative); EDUAKETONE Negative (Negative); EDUALEUKO Negative (Negative); EDUANITRATE Negative (Negative); EDUAPH 6.5; EDUAPROTEIN Negative (Negative); EDUASPGRAVITY 1.020; EDUAUROBILI 0.2
== END 2025-05-09 15:16 | disposition home or self-care (01) ==
PROVIDERS: Emergency Provider Nurse Practitioner; PCP Family Medicine
DX: R30.0 Dysuria (principal); E78.00 Pure hypercholesterolemia, unspecified; Z86.73 Personal history of transient ischemic attack (TIA), and cerebral infarction without residual deficits; I25.2 Old myocardial infarction; Z85.828 Personal history of other malignant neoplasm of skin; E03.9 Hypothyroidism, unspecified; Z96.652 Presence of left artificial knee joint
CPT/HCPCS: 81003; 87086; 99213; G0463